=== PATIENT | female | born 1965 | race Caucasian/White ===

== ENCOUNTER → 2017-05-04 15:34 | Outpatient (CLI) | payer OTHER, SELFPAY ==
--- NOTE | 2017-05-04 | US_ITS ---
US thyroid HISTORY: Hypothyroid. Recent diagnosis of thyromegaly ORDERING PHYSICIAN: Cony Ruiz PATIENT AGE: 51 years COMPARISON: None FINDINGS: The right lobe measures 4 x 1.5 x 1.7 cm. There is some heterogeneous echogenicity. There is an 8 mm area of slight decreased echogenicity in the mid aspect of the right lobe. This however is only demonstrated in the sagittal plane. The left lobe measures 4 x 1.3 x 1.6 cm with heterogeneous echogenicity. No definite nodule. IMPRESSION: Heterogeneous echogenicity of the thyroid gland possible nodule in the right. Consider 6 month follow-up to confirm stability or resolution
== END ==
PROVIDERS: PCP Family Medicine; Visit Provider Nurse Practitioner Family
DX: E01.0 Iodine-deficiency related diffuse (endemic) goiter (principal)
CPT/HCPCS: 76536

== ENCOUNTER → 2018-05-21 13:25 | Outpatient (CLI) | payer OTHER, SELFPAY ==
--- NOTE | 2018-05-21 13:26 | CA_ITS ---
PROCEDURE: 2-D M-mode and color Doppler study INDICATIONS FOR THE TEST: Chest pain COPD Heart Murmur Tobacco Smoking Palpitations+ Fatigue Syncope Edema+ Hypertension+Diabetes Mellitus Rheumatic Fever SOB VANG Obesity Hyperlipidemia Family History HD Additional History PATIENT INFORMATION HEIGHT: 63 WEIGHT: 191 GENDER: Female B/P: 114/72 2-D/M-MODE INTERPRETATION: 2-D MEASUREMENTS OBSERVED VALUES IN CMS Right Ventricular Dimension (RVDd) 2.8 Interventricular Septum (Thickness)(IVsd) 0.9 Left Ventricular Internal Dimensions(LVIDd) 4.6 Left Ventricular Posterior Wall (Thickness)(LVPWd) 0.9 Aortic Root 3.0 Aortic Cusp Separation 2.0 Left Atrial Dimensions (LAD) 4.3 2D 1. Left atrium is mildly enlarged, left ventricle is normal size, there is no concentric left ventricular hypertrophy, visually estimated ejection fraction 55% with no regional wall motion abnormality. 2. The right atrium and right ventricle are normal size and contractility. 3. The aortic valve, mitral and tricuspid valve are grossly normal. 4. The pulmonic valve is poorly present. 5. No significant pericardial effusion noted. DOPPLER INTERROGATION: Doppler interrogation of the aortic, mitral and tricuspid valvular presence of mild mitral and tricuspid regurgitation, tricuspid regurgitation jet velocity is inadequate for calculation of the right ventricular systolic pressure, diastolic parameters are within normal range. Inferior vena cava is normal size with normal respiratory collapse. CONCLUSION: 1. Mildly enlarged left atrium, normal left ventricular size, visually estimated ejection fraction 55% with no regional wall motion abnormality, diastolic parameters are within normal range. 2. Mild mitral and tricuspid regurgitation 3. No significant pericardial effusion noted.
== END ==
PROVIDERS: PCP Family Medicine; Visit Provider Internal Medicine
DX: R00.2 Palpitations (principal); I51.9 Heart disease, unspecified; R60.9 Edema, unspecified; I10 Essential (primary) hypertension; F41.9 Anxiety disorder, unspecified
CPT/HCPCS: 93306

== ENCOUNTER 2018-06-02 19:35 | Observation (INO) ==
[2018-06-02 20:06] LABS: Basophils # 0.1 K/mm3 (0-0.2); Basophils % 0.7 % (0.1-2.0); Eosinophils # 0.4 K/mm3 (0.0-0.4); Eosinophils % 4.3 % (0.1-12.0); Hematocrit 41.1 % (37.0-47.0); Hemoglobin 14.1 g/dL (12.2-16.2); Lymphocytes # 1.7 K/mm3 (0.7-4.5); Lymphocytes % 18.2 % (10-50); Mean Corpuscular HGB Conc 34.2 g/dL (31.8-35.4); Mean Corpuscular Hemoglobin 30.8 pg (27.0-31.2); Mean Corpuscular Volume 90.2 fl (81-99); Mean Platelet Volume 6.6 fl (7.4-10.4); Monocytes # 0.7 K/mm3 (0.1-1.0); Monocytes % 7.2 % (1.7-9.3); Neutrophils # 6.4 K/mm3 (1.8-7.8); Neutrophils % 69.5 % (37.0-80.0); Platelet Count 293 K/mm3 (142-424); Red Blood Count 4.55 M/mm3 (4.20-5.40); Red Cell Distribution Width 13.6 % (11.5-17.5); White Blood Count 9.2 K/mm3 (4.8-10.8)
[2018-06-02 20:31] LABS: Anion Gap 12.5 mEq/L (5-15); Blood Urea Nitrogen 7 mg/dL (7-18); Carbon Dioxide 29 mmol/L (21.0-32.0); Chloride 102 mmol/L (98-107); Glucose 96 mg/dL (74-106); Potassium 3.5 mmoL/L (3.5-5.1); Sodium 140 mmol/L (136-145)
--- NOTE | 2018-06-02 23:16 | Emergency Department Note ---
ED Disposition Clinical Impression: Chest pain Qualifiers: Chest pain type: precordial pain Qualified Code(s): R07.2 - Precordial pain Disposition: Admitted as Observation Condition on Discharge: Good - Critical Care Critical Care Time: No Attestation: On 06/02/18, the high probability of a clinically significant, sudden or life threatening deterioration of the following system(s) required my full and direct attention, intervention and personal management. The time I documented below is in addition to time spent performing reported procedures but includes the following listed in this critical care notation. Medical Decision Making - Medical Records Medical records reviewed: Yes: I reviewed the patient's medical records. - [place] Inquiry Pt receiving controlled substance: No Vital Signs: 06/02/18 19:37 06/02/18 20:31 06/02/18 20:39 Temperature 99.1 F Temperature Source Oral Pulse Rate [Right] 62 57 L 60 Respiratory Rate 16 16 16 Blood Pressure [Right Arm] 164/80 H 131/69 131/69 Blood Pressure Mean [Right Arm] 108 89 89 Blood Pressure Source [Right Arm] Automatic Cuff Automatic Cuff Automatic Cuff Blood Pressure Position [Right Arm] Supine Sitting 02 Sat by Pulse Oximetry 97 97 98 Oxygen Delivery Method Room Air Room Air Room Air 06/02/18 23:30 Temperature Temperature Source Pulse Rate [Right] 91 H Respiratory Rate 16 Blood Pressure [Right Arm] 132/89 Blood Pressure Mean [Right Arm] 103 Blood Pressure Source [Right Arm] Automatic Cuff Blood Pressure Position [Right Arm] Supine 02 Sat by Pulse Oximetry 97 Oxygen Delivery Method Room Air - Lab Data Lab results reviewed: Yes: I reviewed the patient's lab results. Lab Results 06/02/18 19:47: WBC 9.2, RBC 4.55, Hgb 14.1, Hct 41.1, MCV 90.2, MCH 30.8, MCHC 34.2, RDW 13.6, Plt Count 293, MPV 6.6 L, Neut % (Auto) 69.5, Lymph % (Auto) 18.2, [place] % (Auto) 7.2, Eos % (Auto) 4.3, Baso % (Auto) 0.7, Neut # (Auto) 6.4, Lymph # (Auto) 1.7, [place] # (Auto) 0.7, Eos # (Auto) 0.4, Baso # (Auto) 0.1 06/02/18 19:47: Sodium 140, Potassium 3.5, Chloride 102, Carbon Dioxide 29, Anion Gap 12.5, BUN 7, Creatinine 0.83, Estimated Creat Clear 110, Estimated GFR 72, Est GFR ( Amer) 88, Glucose 96, Calcium 9.0, Troponin I < 0.02 Result diagrams: 06/02/18 19:47 06/02/18 19:47 Orders (Tests/Meds): ED MEDICATIONS Generic Name Dose Route Start Last Admin Trade Name Freq PRN Reason Stop Dose Admin Sodium Chloride 1,000 mls @ 999 mls/hr 06/02/18 19:45 06/02/18 19:51 Sod Chlor 0.9% 1000ml Bag IV 06/02/18 20:45 999 mls/hr .[id number] DEONNA Administration Discontinued Medications Generic Name Dose Route Start Last Admin Trade Name Freq PRN Reason Stop Dose Admin Aspirin 324 mg 06/02/18 19:45 06/02/18 19:51 Aspirin 81mg Chewable Tablet PO 06/02/18 19:46 324 mg ONCE ONE Administration - Radiology Data #1 Image(s): Chest Image Reviewed: Yes I reviewed the patient's radiology image Preliminary Findings: Normal/NAD - ECG Data Tracing #1 Normal Sinus Rhythm: Yes Ischemic changes: non-specific ST-T wave changes - Physician Consults Physician Consulted: radha Reason -: Admission Chest Pain HPI - General Chief Complaint: Chest Pain Stated Complaint: chest pain Time Seen by Provider: 06/02/18 23:01 Mode of Arrival: Ambulatory Source of Information: Patient, Spouse, Medical Record ( ) Limitations: No Limitations Description of Symptoms (Recalled from ER Triage Doc. by RN): Pt states she has been having chest tightness since sunday - History of Present Illness HPI narrative: pt with episode of chest tightness for 30 min at rest on sunday and for 1 hr arielle - complaint: chest pain indicative of cardiac Onset (ago): hour(s) Duration: now resolved Activity at onset: during rest Pain location: left chest Severity: moderate Quality: other (pressure) Risk Factors for CAD: Hypertension, Family Hx of CAD Treatments prior to or on arrival for Cardiac Chest Pain: none - CRISPIN Score for Non-Stemi Age of Patient: 50-59 years old Heart Rate: 50-69 bpm Systolic Blood Pressure: 160-199 mmHg Serum Creatinine: 0.80-1.19 mg/dl CHF [place] Class: I-No CHF Other Risk Factors: None Non-Stemi Risk Score: 61 - Related Data Prior Cardiac Testing/Procedures: Echocardiogram On Oral Contraceptives: No Home Medications Medication Instructions Recorded Confirmed escitalopram 20 mg tablet 20 mg PO DAILY tab 09/07/17 06/02/18 thyroid (pork) 30 mg tablet 30 mg PO DAILY 05/14/18 06/02/18 Amlodipine Besylate [Norvasc 5mg 5 mg PO DAILY 06/02/18 06/02/18 tablet] Bisoprolol Fumarate [Bisoprolol 10 mg PO DAILY 06/02/18 06/02/18 10mg Tablet] Trazodone HCl 100 mg PO HS 06/02/18 06/02/18 Allergies Allergy/AdvReac Type Severity Reaction Status Date / Time codeine [CODEINE] Allergy Severe WHIVES Verified 06/02/18 19:53 erythromycin base Allergy Severe WHIVES Verified 06/02/18 19:53 [ERYTHROMYCIN BASE] Penicillins [PENICILLINS] Allergy Severe I-HIVES Verified 06/02/18 19:53 Sulfa (Sulfonamide Allergy Severe WHIVES Verified 06/02/18 19:53 Antibiotics) [SULFA (SULFONAMIDE ANTIBIOTICS)] [facility] History - Hepatitis A Screen Drug use history?: No High risk sexual behaviors?: No History of sexually transmitted infection?: No Currently employed?: No Childcare worker?: No Do you have indoor plumbing?: Yes Do you have electricity?: Yes Attestation statement:: This patient has been screened for Hepatitis A risk factors. I have reviewed the patient's past medical history: Yes Medical History: Reports:: Depression, Hypertension Denies:: Cancer, Diabetes Mellitus Type 1, Diabetes Mellitus Type 2, MRSA Other Medical History: Reports: Hypothyroidism, Other Other Surgeries: Yes: Other (left foot, ablation, lithotripsy x 3) Amputation: No Fractures: No - Social History Smoking Status: Never smoker Alcohol Intake: never Alcohol Intake Frequency:: other Substance Use Type: denies use Occupational Status: employed Housing: house Household Members: spouse - Psychiatric History Expresses thoughts of harming self/others: None Suicide Plan Description: No Plan Pschychiatric History:: Reports:: Depression Family Hx:: No significant family history ROS Obtained: Yes All systems reviewed & no additional complaints - Constitutional Constitutional: Denies fever(s) - Eyes Eyes: Denies change in vision - ENT Ears, Nose, Mouth, and Throat: Denies sore throat - Cardiovascular Cardiovascular: Reports chest pain, Denies dyspnea - Respiratory Respiratory: No cough - Gastrointestinal Gastrointestingal: Denies: abdominal pain - Genitourinary Female Genitourinary: Denies hematuria - Musculoskeletal Musculoskeletal: Denies joint pain, Denies joint swelling - Integumentary/Breasts Skin/Breast: Denies rash - Neurologic Neurologic: Denies tingling/numbness/burning sensations, Denies seizure-like activity Physical Exam - General General appearance: alert, in no apparent distress - Head Head exam: normocephalic - Eye Eye exam: Present: PERRL, EOMI - ENT ENT exam: Present: mucous membranes moist - Neck Neck exam: Present: trachea midline - Respiratory Respiratory exam: Present: normal lung sounds bilaterally. Absent: respiratory distress - Cardiovascular Cardiovascular exam: Present: regular rate, systolic murmur - Abdominal Exam Abdominal exam: Present: soft - Extremities Exam Extremities exam: Absent: calf tenderness - Neurological Exam Neurological exam: Present: alert, oriented X3, CN II-XII intact - Psychiatric Psychiatric exam: Present: normal affect - Skin Skin exam: Absent: rash
[2018-06-03 05:56] LABS: Basophils # 0.1 K/mm3 (0-0.2); Basophils % 0.6 % (0.1-2.0); Eosinophils # 0.5 K/mm3 (0.0-0.4); Hematocrit 38.6 % (37.0-47.0); Hemoglobin 12.9 g/dL (12.2-16.2); Lymphocytes # 1.3 K/mm3 (0.7-4.5); Lymphocytes % 12.5 % (10-50); Mean Corpuscular HGB Conc 33.4 g/dL (31.8-35.4); Mean Corpuscular Hemoglobin 30.2 pg (27.0-31.2); Mean Corpuscular Volume 90.3 fl (81-99); Mean Platelet Volume 6.6 fl (7.4-10.4); Monocytes # 0.6 K/mm3 (0.1-1.0); Monocytes % 5.4 % (1.7-9.3); Neutrophils % 76.5 % (37.0-80.0); Platelet Count 259 K/mm3 (142-424); Red Blood Count 4.27 M/mm3 (4.20-5.40); Red Cell Distribution Width 13.6 % (11.5-17.5); White Blood Count 10.4 K/mm3 (4.8-10.8)
[2018-06-03 06:12] LABS: Anion Gap 11.6 mEq/L (5-15); Blood Urea Nitrogen 6 mg/dL (7-18); Calcium 8.5 mg/dL (8.5-10.1); Carbon Dioxide 28 mmol/L (21.0-32.0); Chloride 105 mmol/L (98-107); Chol/HDL Ratio 3.3 (1-3.5); Cholesterol 156 mg/dL (140-200); Glucose 106 mg/dL (74-106); HDL Cholesterol 48 mg/dL (29-89); LDL Cholesterol 97 mg/dL (0-130); Potassium 3.6 mmoL/L (3.5-5.1); Sodium 141 mmol/L (136-145); Triglycerides 56 mg/dL (30-200); VLDL Cholesterol 11 mg/dL (0-40)
--- NOTE | 2018-06-03 07:24 | H&P/Discharge Summary ---
General - General Admission date:: 06/03/18 Discharge date: 06/03/18 *Admission Date: 06/02/18 *Chief complaint: Shortness of breath *History of present illness: 52-year-old female with hypertension and anxiety presented to the emergency department with complaints of shortness of breath, dizziness and lightheadedness. Patient reports that within the last year she has developed occasional symptoms of sensation of pressure around the bottom of the neck and throat with associated inability to get a deep breath. Deep breathing will usually trigger coughing. Occasionally the patient feels like she is wheezing. Symptoms usually occur around the sternal notch. On Sunday, which is the day she was admitted, in addition to the symptoms she had associated tingling of the tongue along with lightheadedness and dizziness that lasted approximately 30 minutes. She had 2 episodes while at rest. This caused her to come to the emergency department. Patient denies having any chest pain. Review of systems is positive for malaise that has lasted the last 2 years. Negative for heartburn or acid reflux [facility] History I have reviewed the patient's past medical history: Yes Medical History: Reports:: Arrhythmia, Depression, Hypertension Denies:: Cancer, Coronary Artery Disease, Diabetes Mellitus Type 1, Diabetes Mellitus Type 2, MRSA *Have you ever received a pneumonia vaccine?: No *Have you received a flu vaccine this season?: Yes Other Medical History: Reports: Hypothyroidism, Thyroid Disease, Other Laterality Cases: Left: Other Other Surgeries: Yes: Colonoscopy, Other (left foot, ablation, lithotripsy x 3) Amputation: No Fractures: No - *Social History Educational Level: Attended College Smoking Status: Never smoker Alcohol Intake: never Alcohol Intake Frequency:: other Substance Use Type: denies use *Occupational Status:: employed Housing: house Household Members: spouse *Travel in the last 8 weeks: None - Psychiatric History Expresses thoughts of harming self/others: None Suicide Plan Description: No Plan Pschychiatric History:: Reports:: Depression Family Hx:: No significant family history Review of Systems - Review of Systems Review of systems:: pertinent systems reviewed and negative unless documented below See HPI - *Neurologic Denies tingling/numbness/burning sensations, Denies seizure-like activity Exam Vital signs and Labs for Last 24 Hours: Temp Pulse Resp BP Pulse Ox 98.0 F 58 L 18 134/71 92 L 06/03/18 04:00 06/03/18 04:00 06/03/18 04:00 06/03/18 04:00 06/03/18 04:00 Laboratory Results - last 24 hr 06/02/18 19:47: WBC 9.2, RBC 4.55, Hgb 14.1, Hct 41.1, MCV 90.2, MCH 30.8, MCHC 34.2, RDW 13.6, Plt Count 293, MPV 6.6 L, Neut % (Auto) 69.5, Lymph % (Auto) 18.2, [place] % (Auto) 7.2, Eos % (Auto) 4.3, Baso % (Auto) 0.7, Neut # (Auto) 6.4, Lymph # (Auto) 1.7, [place] # (Auto) 0.7, Eos # (Auto) 0.4, Baso # (Auto) 0.1 06/02/18 19:47: Sodium 140, Potassium 3.5, Chloride 102, Carbon Dioxide 29, Anion Gap 12.5, BUN 7, Creatinine 0.83, Estimated Creat Clear 110, Estimated GFR 72, Est GFR ( Amer) 88, Glucose 96, Calcium 9.0, Troponin I < 0.02 06/03/18 02:10: Troponin I < 0.02 06/03/18 05:27: Sodium 141, Potassium 3.6, Chloride 105, Carbon Dioxide 28, Anion Gap 11.6, BUN 6 L, Creatinine 0.87, Estimated Creat Clear 102, Estimated GFR 69, Est GFR ( Amer) 83, Glucose 106, Calcium 8.5, Magnesium 1.9, Troponin I < 0.02, Triglycerides 56, Cholesterol 156, LDL Cholesterol 97, VLDL Cholesterol 11, HDL Cholesterol 48, Cholesterol/HDL Ratio 3.3 06/03/18 05:27: WBC 10.4, RBC 4.27, Hgb 12.9, Hct 38.6, MCV 90.3, MCH 30.2, MCHC 33.4, RDW 13.6, Plt Count 259, MPV 6.6 L, Neut % (Auto) 76.5, Lymph % (Auto) 12.5, [place] % (Auto) 5.4, Eos % (Auto) 5.0, Baso % (Auto) 0.6, Neut # (Auto) 8.0 H, Lymph # (Auto) 1.3, [place] # (Auto) 0.6, Eos # (Auto) 0.5 H, Baso # (Auto) 0.1 I & O for Last 24 hours: Intake & Output 05/31/18 06/01/18 06/02/18 06/03/18 11:59 11:59 11:59 11:59 Intake Total 213 / 213 Balance 213 / 213 Weight 187 lb Narrative: Patient is awake and alert and in no distress. HEENT exam is normal. Neck is without lymphadenopathy or thyromegaly. Heart has a regular rate and rhythm. L ungs are clear to auscultation and without wheezing. Abdomen is soft and nontender. Extremities have full range of motion. Vascular exam reveals intact dorsalis pedis pulses in both feet and no edema. Neurologically there are no deficits. Hospital Course Hospital Course: Patient EKG in the emergency department did not show any signs of ischemia, infarct or injury. Cardiac enzymes were negative. Patient was admitted for serial troponins. All troponins were negative. The following morning the patient was asymptomatic. She was discharged home with an inhaler and will follow-up in the office on June 07 at 8 AM with me. Results Labs on day of discharge: Labs from last 24 hours 06/03/18 06/03/18 06/03/18 05:27 05:27 02:10 WBC 10.4 RBC 4.27 Hgb 12.9 Hct 38.6 MCV 90.3 MCH 30.2 MCHC 33.4 RDW 13.6 Plt Count 259 MPV 6.6 L Neut % (Auto) 76.5 Lymph % (Auto) 12.5 [place] % (Auto) 5.4 Eos % (Auto) 5.0 Baso % (Auto) 0.6 Neut # (Auto) 8.0 H Lymph # (Auto) 1.3 [place] # (Auto) 0.6 Eos # (Auto) 0.5 H Baso # (Auto) 0.1 Sodium 141 Potassium 3.6 Chloride 105 Carbon Dioxide 28 Anion Gap 11.6 BUN 6 L Creatinine 0.87 Estimated Creat Clear 102 Estimated GFR 69 Est GFR ( Amer) 83 Glucose 106 Calcium 8.5 Magnesium 1.9 Troponin I < 0.02 < 0.02 Triglycerides 56 Cholesterol 156 LDL Cholesterol 97 VLDL Cholesterol 11 HDL Cholesterol 48 Cholesterol/HDL Ratio 3.3 02/24/19 02/24/19 19:47 19:47 WBC 9.2 RBC 4.55 Hgb 14.1 Hct 41.1 MCV 90.2 MCH 30.8 MCHC 34.2 RDW 13.6 Plt Count 293 MPV 6.6 L Neut % (Auto) 69.5 Lymph % (Auto) 18.2 [place] % (Auto) 7.2 Eos % (Auto) 4.3 Baso % (Auto) 0.7 Neut # (Auto) 6.4 Lymph # (Auto) 1.7 [place] # (Auto) 0.7 Eos # (Auto) 0.4 Baso # (Auto) 0.1 Sodium 140 Potassium 3.5 Chloride 102 Carbon Dioxide 29 Anion Gap 12.5 BUN 7 Creatinine 0.83 Estimated Creat Clear 110 Estimated GFR 72 Est GFR ( Amer) 88 Glucose 96 Calcium 9.0 Magnesium Troponin I < 0.02 Triglycerides Cholesterol LDL Cholesterol VLDL Cholesterol HDL Cholesterol Cholesterol/HDL Ratio DS: Diagnosis - Discharge Diagnosis (1) Shortness of breath Status: Acute (2) Anxiety disorder Status: Chronic Discharge Medications - Medications for Discharge Home Medication List at Discharge: No Action escitalopram 20 mg tablet 20 mg PO DAILY tab thyroid (pork) 30 mg tablet 30 mg PO DAILY Amlodipine Besylate [Norvasc 5mg tablet] 5 mg PO DAILY Bisoprolol Fumarate [Bisoprolol 10mg Tablet] 10 mg PO DAILY Trazodone HCl 100 mg PO HS Disposition Disposition: Home, Self-Care
--- NOTE | 2018-06-03 07:32 | Pharmacy Consult Notes ---
[facility] Pharmacy VTE Monitoring - Patient Demographics Admission date: 06/02/18 Report Date: 06/03/18 Time: 07:32 Allergies/Adverse Reactions: Patient Allergies codeine [CODEINE] Allergy (Severe, Verified 06/02/18 19:53) WHIVES erythromycin base [ERYTHROMYCIN BASE] Allergy (Severe, Verified 06/02/18 19:53) WHIVES Penicillins [PENICILLINS] Allergy (Severe, Verified 06/02/18 19:53) I-HIVES Sulfa (Sulfonamide Antibiotics) [SULFA (SULFONAMIDE ANTIBIOTICS)] Allergy (Severe, Verified 06/02/18 19:53) WHIVES Height: 1.6 m Weight: 84.822 kg Patient Problems: Current Active Problems Chest pain (Acute) Shortness of breath (Acute) - VTE Risk Labs: VTE Related Lab Results Hgb 12.9 g/dL (12.2-16.2) 06/03/18 05:27 Hct 38.6 % (37.0-47.0) 06/03/18 05:27 Plt Count 259 K/mm3 (142-424) 06/03/18 05:27 BUN 6 mg/dL (7-18) L 06/03/18 05:27 Creatinine 0.87 mg/dL (0.55-1.02) 06/03/18 05:27 Estimated Creat Clear 102 mL/min (50-200) 06/03/18 05:27 VTE Score: 4 VTE Risk Level: Low Risk - Prophylaxis VTE Prophylaxis Ordered?: Yes Types of VTE Prophylaxis: TEDS Knee High Location of Applied Device: Bilateral Lower Extremeties - VTE Diagnosis Confirmed Treatment or plan recommended: Continue Current Treatment
== END 2018-06-03 08:38 | disposition home or self-care (01) ==
LOC: ER 19:35 → 2ND 19:35
PROVIDERS: ADMIT Internal Medicine Adolescent Medicine; ATTEND Family Medicine
DX: F32.9 Major depressive disorder, single episode, unspecified; R06.02 Shortness of breath; R07.2 Precordial pain; Z88.0 Allergy status to penicillin; R20.2 Paresthesia of skin; R42 Dizziness and giddiness; Z79.899 Other long term (current) drug therapy; I49.9 Cardiac arrhythmia, unspecified; Z88.2 Allergy status to sulfonamides; I10 Essential (primary) hypertension; Z88.6 Allergy status to analgesic agent
CPT/HCPCS: 36415; 71020; 71046; 80048; 80061; 83735; 84484; 85025; 93005; 96365; 99284; G0378

== ENCOUNTER → 2018-06-14 10:56 | Outpatient (CLI) | payer OTHER, SELFPAY | PROVIDERS: PCP Family Medicine; Visit Provider Family Medicine | DX: R06.2 Wheezing (principal) | CPT/HCPCS: 94060 ==

== ENCOUNTER 2018-11-05 19:25 | Observation (INO) ==
[2018-11-05 20:16] LABS: Basophils # 0.1 K/mm3 (0-0.2); Basophils % 0.5 % (0.1-2.0); Eosinophils # 0.1 K/mm3 (0.0-0.4); Eosinophils % 0.3 % (0.1-12.0); Hematocrit 44.7 % (37.0-47.0); Hemoglobin 14.7 g/dL (12.2-16.2); Lymphocytes # 1.9 K/mm3 (0.7-4.5); Lymphocytes % 11.6 % (10-50); Mean Corpuscular Volume 92.1 fl (81-99); Mean Platelet Volume 6.5 fl (7.4-10.4); Monocytes # 0.8 K/mm3 (0.1-1.0); Monocytes % 4.8 % (1.7-9.3); Neutrophils # 13.6 K/mm3 (1.8-7.8); Neutrophils % 82.8 % (37.0-80.0); Platelet Count 334 K/mm3 (142-424); Red Blood Count 4.85 M/mm3 (4.20-5.40); Red Cell Distribution Width 13.2 % (11.5-17.5); White Blood Count 16.4 K/mm3 (4.8-10.8)
[2018-11-05 20:26] LABS: Albumin Level 3.3 gm/dL (3.4-5.0); Albumin/Globulin Ratio 0.7 (1.1-1.8); Anion Gap 11.8 mEq/L (5-15); Bilirubin,Total 1.1 mg/dL (0.2-1.0); Calcium 9.1 mg/dL (8.5-10.1); Globulin 4.5 gm/dl (1.3-3.2); Total Protein,Serum 7.8 gm/dL (6.4-8.2)
--- NOTE | 2018-11-05 20:27 | Emergency Department Note ---
ED Disposition Clinical Impression: Cholecystitis Disposition: Admitted As Inpatient Condition on Discharge: Good Instructions: DI for Acute Abdomen Referrals: Javier Wasserman MD [Primary Care Provider] - - Critical Care Critical Care Time: No Attestation: On 11/05/18, the high probability of a clinically significant, sudden or life threatening deterioration of the following system(s) required my full and direct attention, intervention and personal management. The time I documented below is in addition to time spent performing reported procedures but includes the following listed in this critical care notation. Medical Decision Making - Medical Records Medical records reviewed: Yes: I reviewed the patient's medical records. - [place]an Inquiry Pt receiving controlled substance: No Vital Signs: 11/05/18 19:35 11/05/18 21:26 Temperature 98.7 F Temperature Source Oral Pulse Rate [Right] 70 68 Respiratory Rate 16 16 Blood Pressure [Right Arm] 150/72 H 131/72 Blood Pressure Mean [Right Arm] 98 91 Blood Pressure Source [Right Arm] Automatic Cuff Blood Pressure Position [Right Arm] Supine 02 Sat by Pulse Oximetry 99 96 Oxygen Delivery Method Room Air - Lab Data Lab results reviewed: Yes: I reviewed the patient's lab results. Lab Results 11/05/18 19:55: WBC 16.4 H, RBC 4.85, Hgb 14.7, Hct 44.7, MCV 92.1, MCH 30.4, MCHC 33.0, RDW 13.2, Plt Count 334, MPV 6.5 L, Neut % (Auto) 82.8 H, Lymph % (Auto) 11.6, Kerr % (Auto) 4.8, Eos % (Auto) 0.3, Baso % (Auto) 0.5, Neut # (A uto) 13.6 H, Lymph # (Auto) 1.9, Kerr # (Auto) 0.8, Eos # (Auto) 0.1, Baso # (Auto) 0.1, Total Counted 100, Neutrophils % (Manual) 83 H, Lymphocytes % (Manual) 12, Monocytes % (Manual) 5, Platelet Estimate Normal, RBC Morphology Normal, ESR 26 11/05/18 19:55: Sodium 136, Potassium 3.8, Chloride 100, Carbon Dioxide 28, Anion Gap 11.8, BUN 13, Creatinine 1.02, Estimated Creat Clear 89, Estimated GFR 57 L, Est GFR ( Amer) 69, Glucose 117 H, Calcium 9.1, Total Bilirubin 1.1 H, AST 10 L, ALT 18, Alkaline Phosphatase 117 H, C-Reactive Protein 15.0 H, Total Protein 7.8, Albumin 3.3 L, Globulin 4.5 H, Albumin/Globulin Ratio 0.7 L, Amylase 19 L, Lipase 67 L 11/05/18 19:55: Lactate 1.4 Result diagrams: 11/05/18 19:55 11/05/18 19:55 Orders (Tests/Meds): ED MEDICATIONS Generic Name Dose Route Start Last Admin Trade Name Freq PRN Reason Stop Dose Admin Sodium Chloride 1,000 mls @ 999 mls/hr 11/05/18 20:15 11/05/18 20:10 Sod Chlor 0.9% 1000ml Bag IV 11/05/18 21:15 999 mls/hr .[id number] DEONNA Administration Discontinued Medications Generic Name Dose Route Start Last Admin Trade Name Freq PRN Reason Stop Dose Admin Ioversol 75 ml 11/05/18 21:00 11/05/18 21:02 Rad-Optiray 350 100ml Vial IV 11/05/18 21:01 75 ml ONCE ONE Administration Protocol Ketorolac Tromethamine 30 mg 11/05/18 20:02 11/05/18 20:10 Toradol 30mg/Ml Vial IV 11/05/18 20:03 30 mg ONCE ONE Administration Ondansetron HCl 4 mg 11/05/18 20:02 11/05/18 20:10 Zofran 4mg/2ml Vial IV 11/05/18 20:03 4 mg ONCE ONE Administration Sodium Chloride 10 ml 11/05/18 21:00 11/05/18 21:02 Rad-Saline Flush 10ml Syringe IV 11/05/18 21:01 10 ml ONCE ONE Administration ORDERS Category Date Time Status CT abdomen pelvis w con Stat Cat Scan 11/05/18 20:02 Taken Urinalysis and Microscopic Stat Lab 11/05/18 20:02 Ordered Blood Culture Stat Micro 11/05/18 19:55 Received - CT Data CT Scan: Abdomen, Pelvis Time Received: 22:[address] Reviewed: Yes: I have viewed the radiologist's interpretation Preliminary Findings: Abnormal (cholecystitis) - Physician Consults Physician Consulted: radha Reason -: Admission Nausea/Vomiting/Diarrhea HPI - General Chief complaint: Abdominal Pain Stated complaint: Abd Pain Time Seen by Provider: 11/05/18 20:00 Mode of Arrival: Ambulatory Source of Information: Patient, Spouse, Medical Record Limitations: No Limitations Description of Symptoms (Recalled from ER Triage Doc. by RN): Pt states she has stabing pain RUQ x 4 days worse with palpations - History of Present Illness HPI Narrative: progressive rt upper abd pain with nausea MD complaint: nausea, vomiting, abdominal pain Onset (ago): day(s) Associated Abdominal Pain: Yes Location of pain: RUQ Severity: moderate Consistency: colicky Associated symptoms: denies other symptoms - Related Data Home Medications Medication Instructions Recorded Confirmed thyroid (pork) 30 mg tablet 30 mg PO DAILY 05/14/18 11/05/18 omeprazole 20 mg capsule,delayed 20 mg PO DAILY 06/11/18 11/05/18 release Escitalopram Oxalate [Lexapro] 20 mg PO HS 11/05/18 11/05/18 Lisinopril [Lisinopril 10mg Tab] 10 mg PO DAILY 11/05/18 11/05/18 Suvorexant [Belsomra] 20 mg PO DAILY 11/05/18 11/05/18 Previous Rx's Medication Instructions Recorded Albuterol Sulfate [Albuterol HFA 2 puffs IH Q6HP PRN #1 inh 06/03/18 Inhaler] bisoprolol fumarate 10 mg tablet 10 mg PO DAILY #30 tab 06/11/18 Allergies Allergy/AdvReac Type Severity Reaction Status Date / Time codeine [CODEINE] Allergy Severe WHIVES Verified 06/11/18 08:54 erythromycin base Allergy Severe WHIVES Verified 06/11/18 08:54 [ERYTHROMYCIN BASE] Penicillins [PENICILLINS] Allergy Severe I-HIVES Verified 06/11/18 08:54 Sulfa (Sulfonamide Allergy Severe WHIVES Verified 06/11/18 08:54 Antibiotics) [SULFA (SULFONAMIDE ANTIBIOTICS)] [facility] History - Hepatitis A Screen Drug use history?: No High risk sexual behaviors?: No History of sexually transmitted infection?: No Currently employed?: No Childcare worker?: No Do you have indoor plumbing?: Yes Do you have electricity?: Yes Attestation statement:: This patient has been screened for Hepatitis A risk factors. I have reviewed the patient's past medical history: Yes Medical History: Reports:: Anxiety, Arrhythmia, Depression, Hypertension, Kidney Stones Denies:: Cancer, Coronary Artery Disease, Diabetes Mellitus Type 1, Diabetes Mellitus Type 2, MRSA Other Medical History: Reports: Hypothyroidism, Thyroid Disease, Other Laterality Cases: Left: Other Other Surgeries: Yes: Colonoscopy, Other (left foot, ablation, lithotripsy x 3) Amputation: No Fractures: No - Social History Smoking Status: Never smoker Alcohol Intake: never Alcohol Intake Frequency:: other Substance Use Type: denies use Occupational Status: employed Housing: house Household Members: spouse - Psychiatric History Pschychiatric History:: Reports:: Anxiety, Depression Family Hx:: No significant family history ROS Obtained: Yes All systems reviewed & no additional complaints - Constitutional Constitutional: Denies fever(s) - Eyes Eyes: Denies change in vision - ENT Ears, Nose, Mouth, and Throat: Denies sore throat - Cardiovascular Cardiovascular: Denies chest pain - Respiratory Respiratory: No cough - Gastrointestinal Gastrointestingal: Reports: as per HPI, abdominal pain, nausea, vomiting - Genitourinary Female Genitourinary: Denies hematuria - Musculoskeletal Musculoskeletal: Denies joint pain - Integumentary/Breasts Skin/Breast: Denies rash - Neurologic Neurologic: Denies seizure-like activity Physical Exam - General General appearance: alert, in no apparent distress - Head Head exam: normocephalic - Eye Eye exam: Present: PERRL, EOMI. Absent: scleral icterus - ENT ENT exam: Present: mucous membranes dry - Neck Neck exam: Present: trachea midline - Respiratory Respiratory exam: Absent: respiratory distress - Cardiovascular Cardiovascular exam: Present: regular rate, systolic murmur - Abdominal Exam Abdominal exam: Present: soft, tenderness, Reece's sign. Absent: guarding, rebound, rigidity Abdominal tenderness: Present: RUQ, moderate - Extremities Exam Extremities exam: Present: full ROM - Neurological Exam Neurological exam: Present: alert, oriented X3, CN II-XII intact - Psychiatric Psychiatric exam: Present: normal affect - Skin Skin exam: Absent: rash
[2018-11-05 20:51] LABS: Erythrocyte Sedimentation Rate 26 mm/hr (0-30)
[2018-11-05 21:07] LABS: Lymphocytes % 12 % (10-50); Monocytes % 5 % (2-9); Neutrophils % 83 % (42-76); RBC Morphology Normal; Total Cells Counted 100
[2018-11-06 06:45] LABS: Albumin Level 2.6 gm/dL (3.4-5.0); Albumin/Globulin Ratio 0.7 (1.1-1.8); Anion Gap 7.5 mEq/L (5-15); Bilirubin,Total 1.2 mg/dL (0.2-1.0); Calcium 8.5 mg/dL (8.5-10.1); Globulin 3.8 gm/dl (1.3-3.2); Total Protein,Serum 6.4 gm/dL (6.4-8.2)
--- NOTE | 2018-11-06 07:26 | History & Physical Report ---
*Admission Date: 11/05/18 *Chief complaint: Abdominal pain *History of present illness: Patient presented to the emergency department yesterday evening with 4-day history of epigastric and right upper quadrant abdominal pain that was constant in nature and made worse by eating any food. She had associated vomiting and nausea but no diarrhea. Patient denies fevers or chills. She underwent work-up in the emergency department. Exam revealed abdominal tenderness in the right upper quadrant and epigastrium, patient had an elevated white blood cell count, CT scan showed a 3 cm gallstone with pericholecystic fluid and fat stranding consistent with acute cholecystitis. CT scan also revealed nonobstructive renal stones. Patient was diagnosed with acute cholecystitis and admitted for surgical evaluation. Gallbladder ultrasound is scheduled for this morning and has yet to be performed. At present patient states her pain is tolerable as she is recently received some intravenous narcotic. Nausea is controlled at this time as well [facility] History I have reviewed the patient's past medical history: Yes Medical History: Reports:: Anxiety, Arrhythmia, Depression, Gastroesophageal Reflux Disease(GERD), Hypertension, Kidney Stones Denies:: Cancer, Coronary Artery Disease, Diabetes Mellitus Type 1, Diabetes Mellitus Type 2, MRSA *Have you ever received a pneumonia vaccine?: No *Have you received a flu vaccine this season?: Yes Other Medical History: Reports: Hypothyroidism, Thyroid Disease, Other Laterality Cases: Left: Other Other Surgeries: Yes: Colonoscopy, Other (left foot, ablation, lithotripsy x 3) Amputation: No Fractures: No - *Social History Educational Level: Attended College Smoking Status: Never smoker Alcohol Intake: current Alcohol Intake Frequency:: holidays/special occasions only Substance Use Type: denies use *Occupational Status:: employed Housing: house Household Members: spouse *Travel in the last 8 weeks: None - Psychiatric History Expresses thoughts of harming self/others: None Suicide Plan Description: No Plan Pschychiatric History:: Reports:: Anxiety, Depression Family Hx:: Cancer, Hypertension, Thyroid Disorder Review of Systems - Review of Systems Review of systems:: pertinent systems reviewed and negative unless documented below - Constitutional Denies body ache(s), Denies chills - *Cardiovascular Denies chest pain - *Gastrointestinal Reports abdominal pain, Reports nausea, Reports vomiting - *Neurologic Denies seizure-like activity Meds Home Medications Medication Instructions Recorded Confirmed Type thyroid (pork) 30 mg tablet 30 mg PO DAILY 05/14/18 11/05/18 History Albuterol Sulfate [Albuterol HFA 2 puffs IH Q6HP PRN #1 inh 06/03/18 11/05/18 Rx Inhaler] bisoprolol fumarate 10 mg tablet 10 mg PO DAILY #30 tab 06/11/18 11/05/18 Rx omeprazole 20 mg capsule,delayed 20 mg PO DAILY 06/11/18 11/05/18 History release Escitalopram Oxalate [Lexapro] 20 mg PO HS 11/05/18 11/05/18 History Lisinopril [Lisinopril 10mg Tab] 10 mg PO DAILY 11/05/18 11/05/18 History Suvorexant [Belsomra] 20 mg PO DAILY 11/05/18 11/05/18 History Allergies Allergy/AdvReac Type Severity Reaction Status Date / Time codeine [CODEINE] Allergy Severe WHIVES Verified 06/11/18 08:54 erythromycin base Allergy Severe WHIVES Verified 06/11/18 08:54 [ERYTHROMYCIN BASE] Penicillins [PENICILLINS] Allergy Severe I-HIVES Verified 06/11/18 08:54 Sulfa (Sulfonamide Allergy Severe WHIVES Verified 06/11/18 08:54 Antibiotics) [SULFA (SULFONAMIDE ANTIBIOTICS)] Exam Vital signs and Labs for Last 24 Hours: Temp Pulse Resp BP Pulse Ox 98.3 F 73 16 126/73 97 11/06/18 04:00 11/06/18 04:00 11/06/18 04:00 11/06/18 04:00 11/06/18 04:00 Laboratory Results - last 24 hr 11/05/18 19:55: WBC 16.4 H, RBC 4.85, Hgb 14.7, Hct 44.7, MCV 92.1, MCH 30.4, MCHC 33.0, RDW 13.2, Plt Count 334, MPV 6.5 L, Neut % (Auto) 82.8 H, Lymph % (Auto) 11.6, Kay % (Auto) 4.8, Eos % (Auto) 0.3, Baso % (Auto) 0.5, Neut # (Auto) 13.6 H, Lymph # (Auto) 1.9, Kay # (Auto) 0.8, Eos # (Auto) 0.1, Baso # (Auto) 0.1, Total Counted 100, Neutrophils % (Manual) 83 H, Lymphocytes % (Manual) 12, Monocytes % (Manual) 5, Platelet Estimate Normal, RBC Morphology Normal, ESR 26 11/05/18 19:55: Sodium 136, Potassium 3.8, Chloride 100, Carbon Dioxide 28, Anion Gap 11.8, BUN 13, Creatinine 1.02, Estimated Creat Clear 89, Estimated GFR 57 L, Est GFR ( Amer) 69, Glucose 117 H, Calcium 9.1, Total Bilirubin 1.1 H, AST 10 L, ALT 18, Alkaline Phosphatase 117 H, C-Reactive Protein 15.0 H, Total Protein 7.8, Albumin 3.3 L, Globulin 4.5 H, Albumin/Globulin Ratio 0.7 L, Amylase 19 L, Lipase 67 L 11/05/18 19:55: Lactate 1.4 11/06/18 05:56: Sodium 139, Potassium 4.5, Chloride 106, Carbon Dioxide 30, Anion Gap 7.5, BUN 13, Creatinine 1.03 H, Estimated Creat Clear 89, Estimated GFR 56 L, Est GFR ( Amer) 68, Glucose 118 H, Calcium 8.5, Total Bilirubin 1.2 H, AST 11 L, ALT 18, Alkaline Phosphatase 105, Total Protein 6.4, Albumin 2.6 L D, Globulin 3.8 H, Albumin/Globulin Ratio 0.7 L I & O for Last 24 hours: Intake & Output 11/03/18 11/04/18 11/05/18 11/06/18 11:59 11:59 11:59 11:59 Intake Total 1638 / 1638 Output Total 300 / 300 Balance 1338 / 1338 Weight 194 lb 6 oz - Constitutional no acute distress - *Routine HEENT Exam Head: Present: normocephalic Eye: Present: EOMI ENT: Present: mucous membranes moist - *Routine Respiratory Exam Present: CTA bilaterally - *Routine Cardiovascular Exam Present: RRR, Normal S1, Normal S2 - *Routine Abdominal Exam Present: soft, normoactive bowel sounds, tenderness (Epigastrium and right upper quadrant) - *Routine Extremities Exam Present: full ROM. Absent: edema Assessment and Plan (1) Cholecystitis Current visit: Yes Status: Acute Category: Medical Code(s): K81.9 - Cholecystitis, unspecified - Assessment and plan all Dx Assessment and Plan for all problems:: 1. Gallbladder ultrasound today and surgical consultation
--- NOTE | 2018-11-06 08:04 | Pharmacy Consult Notes ---
[facility] Pharmacy VTE Monitoring - Patient Demographics Admission date: 11/06/18 Report Date: 11/06/18 Time: 08:03 Allergies/Adverse Reactions: Patient Allergies codeine [CODEINE] Allergy (Severe, Verified 06/11/18 08:54) WHIVES erythromycin base [ERYTHROMYCIN BASE] Allergy (Severe, Verified 06/11/18 08:54) WHIVES Penicillins [PENICILLINS] Allergy (Severe, Verified 06/11/18 08:54) I-HIVES Sulfa (Sulfonamide Antibiotics) [SULFA (SULFONAMIDE ANTIBIOTICS)] Allergy (Severe, Verified 06/11/18 08:54) WHIVES Height: 1.6 m Weight: 88.167 kg Patient Problems: Current Active Problems (Updated 11/06/18 @ 07:27 by Javier Wasserman MD) Cholecystitis (Acute) - VTE Risk Labs: VTE Related Lab Results Hgb 14.7 g/dL (12.2-16.2) 11/05/18 19:55 Hct 44.7 % (37.0-47.0) 11/05/18 19:55 Plt Count 334 K/mm3 (142-424) 11/05/18 19:55 BUN 13 mg/dL (7-18) 11/06/18 05:56 Creatinine 1.03 mg/dL (0.55-1.02) H 11/06/18 05:56 Estimated Creat Clear 89 mL/min (50-200) 11/06/18 05:56 Was VTE Risk Assessment Performed: Yes VTE Score: 4 VTE Risk Level: Low Risk Clinical Trial Participant: No - Prophylaxis VTE Prophylaxis Ordered?: Yes Types of VTE Prophylaxis: TEDS Knee High
--- NOTE | 2018-11-06 11:40 | Consult Report ---
*Admission Date: 11/06/18 *Reason for consult:: Cholecystitis *History of present illness: Patient is a very pleasant 53-year-old female. She had presented to the emergency department earlier this morning after she had been experiencing a 4- day history of abdominal pain. She states that this began several days ago as more of a substernal discomfort and heartburn type symptoms. However it became progressively severe and radiated and localized to the right upper quadrant. Due to the severity of her symptoms she presented to the emergency department earlier this morning. She was found to have a mild leukocytosis. She underwent CT scan which revealed large gallstone with radiographic evidence of acute cholecystitis. She was admitted for inpatient management and surgical consultation was obtained. She has undergone gallbladder ultrasound and this reveals findings consistent with acute cholecystitis. She has had some low- grade fever since admission. Review of Systems - Review of Systems Review of systems:: pertinent systems reviewed and negative unless documented below - *Neurologic Denies seizure-like activity [facility] History Medical History: Reports:: Anxiety, Arrhythmia, Depression, Gastroesophageal Reflux Disease(GERD), Hypertension, Kidney Stones Denies:: Cancer, Coronary Artery Disease, Diabetes Mellitus Type 1, Diabetes Mellitus Type 2, MRSA *Have you ever received a pneumonia vaccine?: No *Have you received a flu vaccine this season?: Yes Other Medical History: Reports: Hypothyroidism, Thyroid Disease, Other Laterality Cases: Left: Other Other Surgeries: Yes: Colonoscopy, Other (left foot, ablation, lithotripsy x 3) Amputation: No Fractures: No - *Social History Educational Level: Attended College Smoking Status: Never smoker Alcohol Intake: current Alcohol Intake Frequency:: holidays/special occasions only Substance Use Type: denies use *Occupational Status:: employed Housing: house Household Members: spouse *Travel in the last 8 weeks: None - Psychiatric History Expresses thoughts of harming self/others: None Suicide Plan Description: No Plan Pschychiatric History:: Reports:: Anxiety, Depression Family Hx:: Cancer, Hypertension, Thyroid Disorder Meds Home Medications Medication Instructions Recorded Confirmed Type thyroid (pork) 30 mg tablet 30 mg PO DAILY 05/14/18 11/05/18 History Albuterol Sulfate [Albuterol HFA 2 puffs IH Q6HP PRN #1 inh 06/03/18 11/05/18 Rx Inhaler] bisoprolol fumarate 10 mg tablet 10 mg PO DAILY #30 tab 06/11/18 11/05/18 Rx omeprazole 20 mg capsule,delayed 20 mg PO HS 06/11/18 11/06/18 History release Escitalopram Oxalate [Lexapro] 20 mg PO HS 11/05/18 11/05/18 History Lisinopril [Lisinopril 10mg Tab] 10 mg PO HS 11/05/18 11/06/18 History Suvorexant [Belsomra] 20 mg PO HS 11/05/18 11/06/18 History Allergies Allergy/AdvReac Type Severity Reaction Status Date / Time codeine [CODEINE] Allergy Severe WHIVES Verified 06/11/18 08:54 erythromycin base Allergy Severe WHIVES Verified 06/11/18 08:54 [ERYTHROMYCIN BASE] Penicillins [PENICILLINS] Allergy Severe I-HIVES Verified 06/11/18 08:54 Sulfa (Sulfonamide Allergy Severe WHIVES Verified 06/11/18 08:54 Antibiotics) [SULFA (SULFONAMIDE ANTIBIOTICS)] Exam Vital signs and Labs for Last 24 Hours: Temp Pulse Resp BP Pulse Ox 100.2 F H 95 H 15 154/83 H 96 11/06/18 08:00 11/06/18 08:00 11/06/18 08:00 11/06/18 08:00 11/06/18 08:00 Laboratory Results - last 24 hr 11/05/18 19:55: WBC 16.4 H, RBC 4.85, Hgb 14.7, Hct 44.7, MCV 92.1, MCH 30.4, MCHC 33.0, RDW 13.2, Plt Count 334, MPV 6.5 L, Neut % (Auto) 82.8 H, Lymph % (Auto) 11.6, Granite % (Auto) 4.8, Eos % (Auto) 0.3, Baso % (Auto) 0.5, Neut # (Auto) 13.6 H, Lymph # (Auto) 1.9, Granite # (Auto) 0.8, Eos # (Auto) 0.1, Baso # (Auto) 0.1, Total Counted 100, Neutrophils % (Manual) 83 H, Lymphocytes % (Manual) 12, Monocytes % (Manual) 5, Platelet Estimate Normal, RBC Morphology Normal, ESR 26 11/05/18 19:55: Sodium 136, Potassium 3.8, Chloride 100, Carbon Dioxide 28, Anion Gap 11.8, BUN 13, Creatinine 1.02, Estimated Creat Clear 89, Estimated GFR 57 L, Est GFR ( Amer) 69, Glucose 117 H, Calcium 9.1, Total Bilirubin 1.1 H, AST 10 L, ALT 18, Alkaline Phosphatase 117 H, C-Reactive Protein 15.0 H, Total Protein 7.8, Albumin 3.3 L, Globulin 4.5 H, Albumin/Globulin Ratio 0.7 L, Amylase 19 L, Lipase 67 L 11/05/18 19:55: Lactate 1.4 11/06/18 05:56: Sodium 139, Potassium 4.5, Chloride 106, Carbon Dioxide 30, Anion Gap 7.5, BUN 13, Creatinine 1.03 H, Estimated Creat Clear 89, Estimated GFR 56 L, Est GFR ( Amer) 68, Glucose 118 H, Calcium 8.5, Total Bilirubin 1.2 H, AST 11 L, ALT 18, Alkaline Phosphatase 105, Total Protein 6.4, Albumin 2.6 L D, Globulin 3.8 H, Albumin/Globulin Ratio 0.7 L I & O for Last 24 hours: Intake & Output 11/03/18 11/04/18 11/05/18 11/06/18 11:59 11:59 11:59 11:59 Intake Total 1638 / 1638 Output Total 500 / 500 Balance 1138 / 1138 Weight 194 lb 6 oz - *Routine HEENT Exam Head: Present: normocephalic Eye: Present: EOMI, PERRL ENT: Present: mucous membranes moist - *Routine Neck Exam Present: supple. Absent: lymphadenopathy - *Routine Respiratory Exam Present: CTA bilaterally - *Routine Cardiovascular Exam Present: RRR - *Routine Abdominal Exam Present: soft, normoactive bowel sounds, tenderness Comments: She has significant tenderness with guarding in the right upper quadrant and ep igastrium. - *Routine Extremities Exam Absent: cyanosis, clubbing, edema - *Routine Skin Exam Present: warm. Absent: rash - *Routine Neurological Exam Present: alert, oriented X3 - Detailed Eye Exam Eyelids: Left normal inspection Results - Labs 11/05/18 19:55 11/06/18 05:56 Laboratory Results - last 24 hr 11/05/18 19:55: WBC 16.4 H, RBC 4.85, Hgb 14.7, Hct 44.7, MCV 92.1, MCH 30.4, MCHC 33.0, RDW 13.2, Plt Count 334, MPV 6.5 L, Neut % (Auto) 82.8 H, Lymph % (Auto) 11.6, Granite % (Auto) 4.8, Eos % (Auto) 0.3, Baso % (Auto) 0.5, Neut # (Auto) 13.6 H, Lymph # (Auto) 1.9, Granite # (Auto) 0.8, Eos # (Auto) 0.1, Baso # (Auto) 0.1, Total Counted 100, Neutrophils % (Manual) 83 H, Lymphocytes % (Manua l) 12, Monocytes % (Manual) 5, Platelet Estimate Normal, RBC Morphology Normal, ESR 26 11/05/18 19:55: Sodium 136, Potassium 3.8, Chloride 100, Carbon Dioxide 28, Anion Gap 11.8, BUN 13, Creatinine 1.02, Estimated Creat Clear 89, Estimated GFR 57 L, Est GFR ( Amer) 69, Glucose 117 H, Calcium 9.1, Total Bilirubin 1.1 H, AST 10 L, ALT 18, Alkaline Phosphatase 117 H, C-Reactive Protein 15.0 H, Total Protein 7.8, Albumin 3.3 L, Globulin 4.5 H, Albumin/Globulin Ratio 0.7 L, Amylase 19 L, Lipase 67 L 11/05/18 19:55: Lactate 1.4 11/06/18 05:56: Sodium 139, Potassium 4.5, Chloride 106, Carbon Dioxide 30, Anion Gap 7.5, BUN 13, Creatinine 1.03 H, Estimated Creat Clear 89, Estimated GFR 56 L, Est GFR ( Amer) 68, Glucose 118 H, Calcium 8.5, Total Bilirubin 1.2 H, AST 11 L, ALT 18, Alkaline Phosphatase 105, Total Protein 6.4, Albumin 2.6 L D, Globulin 3.8 H, Albumin/Globulin Ratio 0.7 L Assessment and Plan (1) Cholecystitis Current visit: Yes Status: Acute Category: Medical Code(s): K81.9 - Cholecystitis, unspecified - Assessment and plan all Dx Assessment and Plan for all problems:: Patient has acute cholecystitis. I discussed the nature of the condition with her. Plan will be to proceed with cholecystectomy with attempted laparoscopic and possible open procedure this afternoon. I explained to her the nature and details of the proposed procedure along with the associated risks. She understands and agrees to proceed.
--- NOTE | 2018-11-06 18:03 | Operative Note ---
Date of procedure: 11/06/18 Pre-op Diagnosis:: Acute cholecystitis Post-op Diagnosis:: Same Procedure performed:: Laparoscopic cholecystectomy Surgeon:: Malik Valente MD [employer] OPERATOR:: Joshua Quinonez Anesthesia: GETA Estimated blood loss (mL): 40 Clinical Note:: Patient is a very pleasant 53-year-old female. She had presented to the emergency department earlier this morning after she had been experiencing a 4- day history of abdominal pain. She states that this began several days ago as more of a substernal discomfort and heartburn type symptoms. However it became progressively severe and radiated and localized to the right upper quadrant. Due to the severity of her symptoms she presented to the emergency department earlier this morning. She was found to have a mild leukocytosis. She underwent CT scan which revealed large gallstone with radiographic evidence of acute cholecystitis. She was admitted for inpatient management and surgical consu ltation was obtained. She has undergone gallbladder ultrasound and this reveals findings consistent with acute cholecystitis. She has had some low-grade fever since admission. Operative findings:: Patient had a severely inflamed massively distended thickened gallbladder consistent with acute cholecystitis with acute inflammatory omental adhesions and pericholecystic fluid. There was at least one extremely large gallstone impacted in the gallbladder and the gallbladder was markedly distended and tense filled with sludge. There was some evidence of early posterior wall necrosis. Operative note:: Patient was taken to the operating room. She was given preoperative intravenous antibiotics. In the operating room she was placed in a supine position. General anesthesia was induced via endotracheal tube. Her abdomen was prepped and draped in the standard surgical fashion. Subumbilical skin incision was made and while performing abdominal wall lift Veress needle was inserted. CO2 pneumoperitoneum was achieved to 15 mmHg. 10/11 mm optical trocar was inserted at the umbilicus. She was positioned in reverse Trendelenburg left side down. A couple 5 mm trochars were inserted in the right upper abdomen. 10 mm trocar was inserted in the epigastrium. Initially was difficult to identify the gallbladder due to it being obscured with omental adhesions from acute inflammatory response. These were swept inferiorly. Gallbladder was identified and found to be massively distended and thickened with acute inflammatory process. It was very tense. Plan was made for attempted drainage of the gallbladder. Laparoscopic suction aspirator was inserted into the fundus of the gallbladder and thick sludge was aspirated from the gallbladder. However there was apparently a large stone impacted in the gallbladder and it could not be fully decompressed. Gallbladder was grasped retracted anterior laterally. There is intense acute inflammatory process around the andrea hepatis with a large amount of edema and initial identification of cystic structures was quite difficult. Prolonged dissection was carried out at the neck of the gallbladder bluntly dissecting the visceral peritoneum covering the gallbladder. Ultimately the cystic duct was identified and carefully dissected free and isolated. Cystic duct was multiply clipped and then divided. Cystic artery was identified and carefully coagulated with MERRILL ultrasonic harmonic kate and divided. Due to the inflammatory process a single Hemoclip was placed on the cystic duct stump. The gallbladder was dissected free from the liver in a retrograde fashion using MERRILL ultrasonic harmonic kate. Dissection process was rather prolonged due to the severe inflammation. It appears as though there were beginnings of posterior wall necrosis of the gallbladder secondary to the likely pressure necrosis from the large stone. Gallbladder was placed within an Endo Catch retrieval device. It was removed from the peritoneal cavity via the umbilical trocar site which required extension of the skin and fascial incisions for delivery. Pneumoperitoneum was then reestablished. Gallbladder fossa and perihepatic space was irrigated and aspirated until clear with approximately 3 L of warm saline irrigation. There appeared to be good hemostasis. Trochars were removed as CO2 pneumoperitoneum was evacuated. Fascia at the umbilical incision was closed with multiple interrupted #1 Vicryl. Local anesthetic was infiltrated. Skin incisions were closed with 4-0 Monocryl in a subcuticular fashion. Steri-Strips and dressings were applied. Patient tolerated the procedure well with no immediate complications. Condition: stable Disposition: PACU Specimens:: Gallbladder and contents Complications:: None immediately apparent
--- NOTE | 2018-11-06 18:17 | Progress Note ---
[facility] Anesthesia Checklist - Structural Data Admitted From: Home Planned Operative Procedure/s: jose danial Consent for Planned Operative Procedure(s) Verified: Yes - Airway Assessment C-Spine Mobility Assessed: Yes TMJ Mobility Assessed: Yes Dentition: Good Dentition - Neurological Assessment Level of Consciousness: Awake, Alert, Appropriate - Anesthesia Plan Anesthesia Risk discussed: Yes Anesthesia Plan: Verified ASA Class: II Anesthesia Type: General [facility] History I have reviewed the patient's past medical history: Yes Medical History: Reports:: Anxiety, Arrhythmia, Depression, Gastroesophageal Reflux Disease(GERD), Hypertension, Kidney Stones Denies:: Cancer, Coronary Artery Disease, Diabetes Mellitus Type 1, Diabetes Mellitus Type 2, MRSA *Have you ever received a pneumonia vaccine?: No *Have you received a flu vaccine this season?: Yes Other Medical History: Reports: Hypothyroidism, Thyroid Disease, Other Laterality Cases: Left: Other Other Surgeries: Yes: Colonoscopy, Other (left foot, ablation, lithotripsy x 3) Amputation: No Fractures: No - *Social History Educational Level: Attended College Smoking Status: Never smoker Alcohol Intake: current Alcohol Intake Frequency:: holidays/special occasions only Substance Use Type: denies use *Occupational Status:: employed Housing: house Household Members: spouse *Travel in the last 8 weeks: None - Psychiatric History Expresses thoughts of harming self/others: None Suicide Plan Description: No Plan Pschychiatric History:: Reports:: Anxiety, Depression Family Hx:: Cancer, Hypertension, Thyroid Disorder
--- NOTE | 2018-11-06 18:18 | Progress Note ---
[facility] Anesthesia Record Part I Intake, IV Amount: 1,500 Estimated blood loss (mL): 0 Urine output (mL): 0 Blood Pressure: 149/63 SaO2: 94 Pulse Rate: 97 Respiratory Rate: 14 Temperature: 98 F Patient is:: Awake, Stable Stable to PACU at:: 18:15
--- NOTE | 2018-11-06 18:19 | Progress Note ---
[facility] Anesthesia Record Part II Discharge Time: 18:45 Destination: floor PACU nurse assessment reviewed?: Yes Patient Condition:: Good Anesthesia Complications:: None Swallowing reflex intact?: Yes Cyanosis?: No
[2018-11-07 06:36] LABS: Basophils % 0.1 % (0.1-2.0); Eosinophils % 0.1 % (0.1-12.0); Hematocrit 37.1 % (37.0-47.0); Hemoglobin 12.1 g/dL (12.2-16.2); Lymphocytes # 0.8 K/mm3 (0.7-4.5); Lymphocytes % 8.2 % (10-50); Mean Corpuscular HGB Conc 32.5 g/dL (31.8-35.4); Mean Corpuscular Volume 92.8 fl (81-99); Mean Platelet Volume 7.5 fl (7.4-10.4); Monocytes # 0.2 K/mm3 (0.1-1.0); Neutrophils # 8.2 K/mm3 (1.8-7.8); Neutrophils % 89.6 % (37.0-80.0); Platelet Count 294 K/mm3 (142-424); Red Cell Distribution Width 13.1 % (11.5-17.5); White Blood Count 9.2 K/mm3 (4.8-10.8)
[2018-11-07 06:52] LABS: Albumin Level 2.2 gm/dL (3.4-5.0); Albumin/Globulin Ratio 0.6 (1.1-1.8); Anion Gap 11.3 mEq/L (5-15); Bilirubin,Total 0.7 mg/dL (0.2-1.0); Calcium 8.4 mg/dL (8.5-10.1); Globulin 3.9 gm/dl (1.3-3.2); Total Protein,Serum 6.1 gm/dL (6.4-8.2)
--- NOTE | 2018-11-07 06:55 | Progress Note ---
Internal Medicine - PN: Subj *Date: 11/07/18 *Time: 06:54 Interval history: Patient feels better this morning. She has minimal abdominal pain. She has tolerated full liquids without problems. She has not had a bowel movement but is passing gas. Exam Vital signs and Labs for Last 24 Hours: Temp Pulse Resp BP Pulse Ox 97.7 F 70 17 140/74 91 L 11/07/18 04:00 11/07/18 04:00 11/07/18 04:00 11/07/18 04:00 11/07/18 04:00 Laboratory Results - last 24 hr 11/06/18 05:56: Sodium 139, Potassium 4.5, Chloride 106, Carbon Dioxide 30, Anion Gap 7.5, BUN 13, Creatinine 1.03 H, Estimated Creat Clear 89, Estimated GFR 56 L, Est GFR ( Amer) 68, Glucose 118 H, Calcium 8.5, Total Bilirubin 1.2 H, AST 11 L, ALT 18, Alkaline Phosphatase 105, Total Protein 6.4, Albumin 2.6 L D, Globulin 3.8 H, Albumin/Globulin Ratio 0.7 L 11/06/18 15:50: Urine HCG, Qual Negative I & O for Last 24 hours: Intake & Output 11/04/18 11/05/18 11/06/18 11/07/18 11:59 11:59 11:59 11:59 Intake Total 1638 / 1638 2884 / 2884 Output Total 650 / 650 800 / 800 Balance 988 / 988 2084 / 2084 Weight 197 lb 5 oz 197 lb Narrative: Patient is in no distress. Lungs are clear. Heart has a regular rate and rhythm. Abdomen is soft and mildly distended with no tenderness. Bowel sounds are present Assessment and Plan (1) Cholecystitis Current visit: Yes Status: Acute Category: Medical Code(s): K81.9 - Cholecystitis, unspecified - Assessment and plan all Dx Assessment and Plan for all problems:: Patient underwent laparoscopic cholecystectomy yesterday and is doing well postoperatively. Likely discharge today.
--- NOTE | 2018-11-07 06:57 | Discharge Summary ---
General - General Admission date:: 11/05/18 Discharge date: 11/07/18 HPI HPI: Patient presented to the emergency department yesterday evening with 4-day history of epigastric and right upper quadrant abdominal pain that was constant in nature and made worse by eating any food. She had associated vomiting and nausea but no diarrhea. Patient denies fevers or chills. She underwent work-up in the emergency department. Exam revealed abdominal tenderness in the right upper quadrant and epigastrium, patient had an elevated white blood cell count, CT scan showed a 3 cm gallstone with pericholecystic fluid and fat stranding consistent with acute cholecystitis. CT scan also revealed nonobstructive renal stones. Patient was diagnosed with acute cholecystitis and admitted for surgical evaluation. Gallbladder ultrasound is scheduled for this morning and has yet to be performed. At present patient states her pain is tolerable as she is recently received some intravenous narcotic. Nausea is controlled at this time as well Hospital Course Hospital Course: On November 06 patient underwent surgical consultation and had subsequent laparoscopic cholecystectomy. Postoperatively there were no complications and patient was tolerating a full liquid diet. Following morning on November 07 as patient continued to do well she was discharged home. Patient will follow-up with Dr. Valente per his instructions. Objective Vital signs: Temp Pulse Resp BP Pulse Ox 97.7 F 70 17 140/74 91 L 11/07/18 04:00 11/07/18 04:00 11/07/18 04:00 11/07/18 04:00 11/07/18 04:00 Results Labs on day of discharge: Labs from last 24 hours 11/06/18 11/06/18 15:50 05:56 Sodium 139 Potassium 4.5 Chloride 106 Carbon Dioxide 30 Anion Gap 7.5 BUN 13 Creatinine 1.03 H Estimated Creat Clear 89 Estimated GFR 56 L Est GFR ( Amer) 68 Glucose 118 H Calcium 8.5 Total Bilirubin 1.2 H AST 11 L ALT 18 Alkaline Phosphatase 105 Total Protein 6.4 Albumin 2.6 L D Globulin 3.8 H Albumin/Globulin Ratio 0.7 L Urine HCG, Qual Negative DS: Diagnosis - Discharge Diagnosis (1) Cholecystitis Status: Acute Discharge Plan - Patient Discharge Instructions ACTIVITY: Continue current activity DIET: continue same diet Patient Instructions: DI for Cholecystitis - Follow up Plan Follow up with: Malik Valente MD [Staff Physician] - Disposition: Home, Self-Assisted Medications: Home Medications Medication Instructions Recorded Confirmed Type thyroid (pork) 30 mg tablet 30 mg PO DAILY 05/14/18 11/05/18 History Albuterol Sulfate [Albuterol HFA 2 puffs IH Q6HP PRN #1 inh 06/03/18 11/05/18 Rx Inhaler] bisoprolol fumarate 10 mg tablet 10 mg PO DAILY #30 tab 06/11/18 11/05/18 Rx omeprazole 20 mg capsule,delayed 20 mg PO HS 06/11/18 11/06/18 History release Escitalopram Oxalate [Lexapro] 20 mg PO HS 11/05/18 11/05/18 History Lisinopril [Lisinopril 10mg Tab] 10 mg PO HS 11/05/18 11/06/18 History Suvorexant [Belsomra] 20 mg PO HS 11/05/18 11/06/18 History Prescriptions/Medication Reconciliation: Continued bisoprolol fumarate 10 mg tablet 10 mg PO DAILY #30 tab thyroid (pork) 30 mg tablet 30 mg PO DAILY omeprazole 20 mg capsule,delayed release 20 mg PO HS Suvorexant [Belsomra] 20 mg PO HS Albuterol Sulfate [Albuterol HFA Inhaler] 2 puffs IH Q6HP PRN #1 inh PRN Reason: Shortness Of Breath Or Wheezing Lisinopril [Lisinopril 10mg Tab] 10 mg PO HS Escitalopram Oxalate [Lexapro] 20 mg PO HS
--- NOTE | 2018-11-07 07:53 | Progress Note ---
Subjective Patient reports: feels better Narrative: Patient feels much better. She has tolerated full liquid diet without nausea. Exam Vital signs and Labs for Last 24 Hours: Temp Pulse Resp BP Pulse Ox 97.7 F 70 17 140/74 91 L 11/07/18 04:00 11/07/18 04:00 11/07/18 04:00 11/07/18 04:00 11/07/18 04:00 Laboratory Results - last 24 hr 11/06/18 15:50: Urine HCG, Qual Negative 11/07/18 06:08: WBC 9.2 D, RBC 4.00 L, Hgb 12.1 L, Hct 37.1, MCV 92.8, MCH 30.1, MCHC 32.5, RDW 13.1, Plt Count 294, MPV 7.5, Neut % (Auto) 89.6 H, Lymph % (Auto) 8.2 L, [place] % (Auto) 2.0, Eos % (Auto) 0.1, Baso % (Auto) 0.1, Neut # (Auto) 8.2 H, Lymph # (Auto) 0.8, [place] # (Auto) 0.2, Eos # (Auto) 0.0, Baso # (Auto) 0.0 11/07/18 06:08: Sodium 139, Potassium 4.3, Chloride 106, Carbon Dioxide 26, Anion Gap 11.3, BUN 11, Creatinine 0.83, Estimated Creat Clear 112, Estimated GFR 72, Est GFR ( Amer) 87 D, Glucose 154 H, Calcium 8.4 L, Total Bilirubin 0.7, AST 21 D, ALT 26 D, Alkaline Phosphatase 124 H, Total Protein 6.1 L, Albumin 2.2 L D, Globulin 3.9 H, Albumin/Globulin Ratio 0.6 L I & O for Last 24 hours: Intake & Output 11/04/18 11/05/18 11/06/18 11/07/18 11:59 11:59 11:59 11:59 Intake Total 1638 / 1638 2884 / 2884 Output Total 650 / 650 800 / 800 Balance 988 / 988 2084 / 2084 Weight 197 lb 5 oz 197 lb - *Routine Abdominal Exam Present: soft Progress Note: A&P (1) Cholecystitis Status: Acute Current Visit: Yes Assessment and Plan for All Diagnoses:: Discharge home today
[2018-11-07 08:09] LABS: Lymphocytes % 8 % (10-50); Monocytes % 1 % (2-9); Neutrophils % 91 % (42-76); Total Cells Counted 100
[2018-11-07 08:15] LABS: RBC Morphology Normal
== END 2018-11-07 09:00 | disposition home or self-care (01) ==
LOC: ER 19:25 → 2ND 22:44 → INTOOBSV 23:20 → 2ND 23:21
PROVIDERS: ADMIT Internal Medicine Adolescent Medicine; ATTEND Family Medicine
CPT/HCPCS: 36415; 74177; 76705; 80053; 81025; 82150; 83605; 83690; 85007; 85025; 85651; 86140; 87040; 96365; 96367; 96375; 99284; G0378; J0131; J1335; J2405; J2710; Q9967; S0077

== ENCOUNTER 2020-10-20 14:28 | Emergency (ER) | payer OTHER, SELFPAY ==
[2020-10-20 14:37] VITALS: BP 140/98; PULSE 65; RESP 21; TEMP 36.8; O2SAT 98; BMI 33.6
[2020-10-20 14:46] LABS: Apearance,Urine Clear (Clear); Color,Urine Yellow (Yellow)
[2020-10-20 14:47] LABS: Bilirubin,Urine Negative (Negative); Blood, Urine 3+ (Negative); Glucose,Urine (UA) Negative (Negative); Ketones,Urine Negative (Negative); PH,Urine 5.5 (5.0-8.5); Protein,Urine 2+ (Negative); Specific Gravity, Urine 1.025 (1.005-1.030); UTC Leukocyte Esterase,Urine 1+ (Negative); UTC Nitrate,Urine Negative (Negative); Urobilinogen,Urine 0.2 EU/dl (0.2)
--- NOTE | 2020-10-20 15:11 | HMH.EDUTC ---
[facility] [place] Clinical Impression: UTI (urinary tract infection) Qualifiers: Urinary tract infection type: site unspecified Hematuria presence: with hematuria Qualified Code(s): N39.0 - Urinary tract infection, site not specified Disposition: Home, Self-Care Condition on Discharge: Good Instructions: Urinary Tract Infection, Nitrofurantoin, DI for Flank Pain Additional Instructions: *Increase fluids. Water not Soda or Tea *Start antibiotic immediately and be sure to take as ordered for the FULL length of time although you should start to see improvement over the next 48 hours *Be SURE to follow up anytime for new or worsening symptoms with your family doctor. AND in 48 hours for urine culture results with your family doctor, if you do not have a doctor then you may call back to the [facility] for urine culture results and further treatment. We do recommend that you choose and establish care with a Primary Care Physician. AND follow up with them in 10-14 days to repeat UA to ensure infection is resolved and blood no longer present *Be sure to let your PCP know that we sent urine cultures from the [facility] so they can follow up to ensure that you area the on the correct antibiotic Call your doctor office and make appointment for 48 hours (2 days from today) to follow up and get the results of your urine culture and further treatment Make sure to follow up with your Family Doctor if no improvement or any worsening of symptoms Straight to ER if any life threatening symptoms, fever, chills, body aches or inability to urinate Prescriptions: Nitrofurantoin Monohyd/M-Cryst [Macrobid 100 mg Capsule] 100 mg PO BID 7 Days #14 cap Transmission Status: Pending to [facility] #[id number] Referrals: Javier Wasserman MD [Primary Care Provider] - As needed Time of Disposition: 15:21 Medical Decision Making - Hernan Inquiry Pt receiving controlled substance: No Hernan was queried for this patient: No Vital Signs: 10/20/20 14:37 Temperature 98.3 F Temperature Source Oral Pulse Rate [Left] 65 Respiratory Rate 21 Blood Pressure [Right Arm] 140/98 H Blood Pressure Mean [Right Arm] 112 02 Sat by Pulse Oximetry 98 - Lab Data Lab results reviewed: Yes: I reviewed the patient's lab results. Lab Results 10/20/20 14:38: Urine Color Yellow, Urine Appearance Clear, Urine pH 5.5, Ur Specific [place] 1.025, Urine Protein 2+, Urine Glucose (UA) Negative, Urine Ketones Negative, Urine Blood 3+, Urine Nitrate Negative, Urine Bilirubin Negative, Urine Urobilinogen 0.2, Ur Leukocyte Esterase 1+ A Orders (Tests/Meds): ORDERS Category Date Time Status Urine Culture Stat Micro 10/20/20 14:38 Received Medical Decision Narrative: Discussed with patient about transfer to the ED for further work up and evaluation to rule out kidney stone and patient declined transfer States that this does not feel like kidney stones that she will take the treatment for the UTI and follow up with her PCP if no improvement or any worsening of symptoms or go straight to the ED if worsening of pain, difficulty urinating, fever, chills or body aches [facility] [place] - General Stated complaint: pain in right back radiating around to stomach Time Seen by Provider: 10/20/20 15:11 Mode of Arrival: Ambulatory Source of Information: Patient Limitations: No Limitations Description of Symptoms (Recalled from Triage Doc. by RN): pt c/o of R flank pain that goes into her back and abd. this started about 0630. pt has no urinary symptoms but has a hx of kidney stones. HEENT Symptoms (Recalled from RN notes): No Resp Symptoms (Recalled from RN notes): No Skin Symptoms (Recalled from RN notes): No MS Symptoms (Recalled from RN notes): No Functional Status (Recalled from RN notes): na - History of Present Illness Provider Complaint: Patient states she started having right flank pain around 630 this morning State that it was an achy like feeling in her right side that radiates from back
[2020-10-20 15:24] VITALS: BP 140/96; PULSE 87; RESP 19; TEMP 37.1; O2SAT 99
== END 2020-10-20 15:24 | disposition home or self-care (01) ==
PROVIDERS: Emergency Provider Nurse Practitioner; PCP Family Medicine
DX: N30.00 Acute cystitis without hematuria (principal); I10 Essential (primary) hypertension; K21.9 Gastro-esophageal reflux disease without esophagitis; F41.8 Other specified anxiety disorders; Z87.442 Personal history of urinary calculi; Z79.899 Other long term (current) drug therapy
CPT/HCPCS: 81003; 87086; 99202; G0463

== ENCOUNTER → 2020-11-03 14:04 | Outpatient (CLI) | payer OTHER, SELFPAY ==
--- NOTE | 2020-11-03 14:18 | XR_ITS ---
PROCEDURE: XR KUB CLINICAL INDICATION: RT FLANK PAIN,H/O RENAL CALCULI,LEUKOCYTOSIS COMPARISON: CT ABDPELW CT abdomen pelvis w con from 11/05/2018 FINDINGS: Rounded calcific density is present to the right L2-L3 at 15 mm and to the left of L2 at 16 mm consistent with bilateral stones within the renal pelves. A 4 mm stone projects over the upper pole of the left kidney. Prior cholecystectomy IMPRESSION: Bilateral nephrolithiasis Dictated by: Beka Toussaint MD 11/03/2020 14:38 Beka Toussaint MD in [place] 11/03/2020 14:38
[2020-11-03 14:33] LABS: Basophils # 0.1 K/mm3 (0-0.2); Basophils % 0.8 % (0.1-2.0); Eosinophils # 0.5 K/mm3 (0.0-0.4); Eosinophils % 3.4 % (0.1-12.0); Hematocrit 42.8 % (37.0-47.0); Hemoglobin 14.5 g/dL (12.2-16.2); Lymphocytes # 2.2 K/mm3 (0.7-4.5); Lymphocytes % 13.7 % (10-50); Mean Corpuscular HGB Conc 33.9 g/dL (31.8-35.4); Mean Corpuscular Hemoglobin 30.6 pg (27.0-31.2); Mean Corpuscular Volume 90.1 fl (81-99); Monocytes # 0.6 K/mm3 (0.1-1.0); Monocytes % 3.6 % (1.7-9.3); Neutrophils # 12.4 K/mm3 (1.8-7.8); Neutrophils % 78.6 % (37.0-80.0); Platelet Count 348 K/mm3 (142-424); Red Blood Count 4.75 M/mm3 (4.20-5.40); Red Cell Distribution Width 13.7 % (11.5-17.5); White Blood Count 15.8 K/mm3 (4.8-10.8)
[2020-11-03 14:38] LABS: MANUAL DIFFERENTIAL MANUAL DIFFERENTIAL (MANUAL DIFF)
[2020-11-03 15:02] LABS: Chloride 102 mmol/L (98-107); Sodium 140 mmol/L (136-145)
[2020-11-03 15:04] LABS: Blood Urea Nitrogen 14 mg/dl (7-17); Estimated Glomerular Filt Rate 58 ml/min (>60); GFR (African American) 70 ML/MIN (>60)
[2020-11-03 15:05] LABS: Alanine Aminotransferase 21 U/L (12-78); Albumin Level 4.4 g/dl (3.5-5.0); Albumin/Globulin Ratio 1.4 (1.1-1.8); Alkaline Phosphatase 147 U/L (38-126); Aspartate Amino Transferase 32 U/L (14-36); Bilirubin,Total 0.8 mg/dl (0.2-1.3); Carbon Dioxide 31 mmol/L (22.0-30.0); Globulin 3.2 g/dL (1.3-3.2); Glucose 104 mg/dl (74-100); Total Protein,Serum 7.6 g/dl (6.3-8.2)
[2020-11-03 15:23] LABS: Eosinophils % 4 % (0-3); Lymphocytes % 14 % (10-50); Monocytes % 4 % (2-9); Neutrophils % 77 % (42-76); Platelet Estimate Normal; Total Cells Counted 100
== END ==
PROVIDERS: Visit Provider Nurse Practitioner Family
DX: R10.9 Unspecified abdominal pain (principal); D72.829 Elevated white blood cell count, unspecified; Z87.442 Personal history of urinary calculi
CPT/HCPCS: 36415; 74018; 80053; 85007; 85025

== ENCOUNTER 2020-11-05 13:34 | Observation (INO) | payer OTHER, SELFPAY ==
[2020-11-05] VITALS (13 sets, daily range): BP systolic 102–141; BP diastolic 56–84; PULSE 65–86; RESP 14–19; TEMP 36.8–38.9; O2SAT 90–100; BMI 31.6; BMI 33.3
--- NOTE | 2020-11-05 13:33 | ECG_ITS ---
APPROVED REPORT Exam: Resting ECG HR:79 bpm ECG Measurements Heart Rate 79 AXES [place] 130 P 43 QRSd 80 QRS 9 QT 412 T 34 QTc 472 Conclusion Normal sinus rhythm Normal ECG Electronically signed by : Javier Taylor, 11/07/2020 21:02:49
--- NOTE | 2020-11-05 13:36 | HMH.EDGENADL ---
ED Disposition Clinical Impression: Fever Qualifiers: Fever type: unspecified Qualified Code(s): R50.9 - Fever, unspecified Leukocytosis Qualifiers: Leukocytosis type: unspecified Qualified Code(s): D72.829 - Elevated white blood cell count, unspecified Disposition: Admitted as Observation Condition on Discharge: Good Referrals: Javier Wasserman MD [Primary Care Provider] - Time of Disposition: 17:26 - Critical Care Critical Care Time: No Attestation: On , the high probability of a clinically significant, sudden or life threatening deterioration of the following system(s) required my full and direct attention, intervention and personal management. The time I documented below is in addition to time spent performing reported procedures but includes the following listed in this critical care notation. Medical Decision Making - Medical Records Medical records reviewed: Yes: I reviewed the patient's medical records. - Hernan Inquiry Pt receiving controlled substance: No Vital Signs: 11/05/20 13:35 11/05/20 14:00 11/05/20 14:30 Temperature 100.5 F H Temperature Source Oral Pulse Rate 78 77 Pulse Rate [Radial] 77 Respiratory Rate 16 14 14 Blood Pressure 117/73 124/71 Blood Pressure [Right Arm] 141/84 H Blood Pressure Mean 87 85 Blood Pressure Mean [Right Arm] 103 Blood Pressure Position [Right Arm] Sitting 02 Sat by Pulse Oximetry 98 94 L 93 L Oxygen Delivery Method Room Air Room Air Room Air 11/05/20 15:00 11/05/20 15:18 11/05/20 15:30 Temperature 102.1 F H Temperature Source Oral Pulse Rate 80 79 Pulse Rate [Radial] Respiratory Rate 16 18 Blood Pressure 123/73 124/71 Blood Pressure [Right Arm] Blood Pressure Mean 89 Blood Pressure Mean [Right Arm] Blood Pressure Position [Right Arm] 02 Sat by Pulse Oximetry 100 90 L Oxygen Delivery Method Room Air 11/05/20 16:00 11/05/20 16:23 Temperature 100.4 F H Temperature Source Oral Pulse Rate 86 Pulse Rate [Radial] Respiratory Rate 19 Blood Pressure 123/73 Blood Pressure [Right Arm] Blood Pressure Mean Blood Pressure Mean [Right Arm] Blood Pressure Position [Right Arm] 02 Sat by Pulse Oximetry 90 L 92 L Oxygen Delivery Method Room Air - Lab Data Lab Results 11/05/20 13:35: WBC 17.6 H, RBC 4.80, Hgb 14.5, Hct 43.4, MCV 90.3, MCH 30.2, MCHC 33.4, RDW 13.8, Plt Count 309, MPV 7.2 L, Neut % (Auto) 91.7 H, Lymph % (Auto) 5.3 L, [place] % (Auto) 0.8 L, Eos % (Auto) 1.5, Baso % (Auto) 0.7, Neut # (Auto) 16.1 H, Lymph # (Auto) 0.9, [place] # (Auto) 0.1, Eos # (Auto) 0.3, Baso # (Auto) 0.1, Total Counted 100, Neutrophils % (Manual) 94 H, Lymphocytes % (Manual) 4 L, Monocytes % (Manual) 1 L, Eosinophils % (Manual) 1, Platelet Estimate Normal, Hypochromasia 1+ 11/05/20 13:35: Sodium 142, Potassium 4.0, Chloride 104, Carbon Dioxide 29, Anion Gap 13.0, BUN 12, Creatinine 0.90, Estimated Creat Clear 97, Estimated GFR 65, Est GFR ( Amer) 79, Glucose 118 H, Calcium 9.2, Total Bilirubin 0.7, AST 33, ALT 20, Alkaline Phosphatase 134 H, Total Protein 7.5, Albumin 4.1, Globulin 3.4 H, Albumin/Globulin Ratio 1.2 11/05/20 13:46: Urine Color Yellow, Urine Appearance Clear, Urine pH 6.0, Ur Specific [place] 1.010, Urine Protein Trace, Urine Glucose (UA) Negative, Urine Ketones Negative, Urine Blood 2+, Urine Nitrate Negative, Urine Bilirubin Negative, Urine Urobilinogen 0.2, Ur Leukocyte Esterase 1+ A, Urine RBC 10-20, Urine WBC 5-10, Ur Squamous Epith Cells None, Urine Bacteria Trace 11/05/20 13:46: Urine HCG, Qual Negative 11/05/20 13:46: Urine Opiates Screen Positive H, Urine Methadone Screen Negative, Ur Barbituates Screen Negative, Ur Phencyclidine Scrn Negative, Ur Amphetamines Screen Negative, U Benzodiazepines Scrn Negative, Urine Cocaine Screen Negative, U Marijuana (THC) Screen Negative Result diagrams: 11/05/20 13:35 11/05/20 13:35 Orders (Tests/Meds): ED MEDICATIONS Discontinued Medications Generi
--- NOTE | 2020-11-05 13:39 | XR_ITS ---
PROCEDURE: XR CHEST PORTABLE CLINICAL HISTORY: ams Chest pain COMPARISON: CR CXR CHEST(2 VIEWS-NOT PORTABLE) from 03/13/2016 CR CXR2V XR chest 2V from 08/05/2017 CR CXR2V XR chest 2V from 06/02/[address] abdomen pelvis w con from 11/05/2018 FINDINGS: Mild cardiomegaly without failure. The lungs are clear without infiltrates, suspicious nodules, or pleural effusions. No acute bony abnormalities. IMPRESSION: Mild cardiomegaly otherwise negative Dictated by: Beka Toussaint MD 11/05/2020 14:53 Beka Toussaint MD in [facility] 11/05/2020 14:53
[2020-11-05 13:50] LABS: Microscopic, Urine URINE MICROSCOPIC (MICROSCOPIC)
[2020-11-05 13:54] LABS: Appearance,Urine CLEAR (Clear); Bilirubin,Urine Negative (Negative); Blood, Urine 2+ (Negative); Color,Urine YELLOW (Yellow); Glucose,Urine (UA) Negative (Negative); Ketones,Urine Negative (Negative); Leukocyte Esterase,Urine 1+ (Negative); Nitrate,Urine Negative (Negative); Protein,Urine TRACE (Negative); Urobilinogen,Urine 0.2 EU/dl (0.2)
[2020-11-05 13:55] LABS: Urine Pregnancy, HCG Qual. Negative (Negative)
[2020-11-05 13:55] LABS: Basophils # 0.1 K/mm3 (0-0.2); Basophils % 0.7 % (0.1-2.0); Eosinophils # 0.3 K/mm3 (0.0-0.4); Eosinophils % 1.5 % (0.1-12.0); Hematocrit 43.4 % (37.0-47.0); Hemoglobin 14.5 g/dL (12.2-16.2); Lymphocytes # 0.9 K/mm3 (0.7-4.5); Lymphocytes % 5.3 % (10-50); Mean Corpuscular HGB Conc 33.4 g/dL (31.8-35.4); Mean Corpuscular Hemoglobin 30.2 pg (27.0-31.2); Mean Corpuscular Volume 90.3 fl (81-99); Mean Platelet Volume 7.2 fl (7.4-10.4); Monocytes # 0.1 K/mm3 (0.1-1.0); Monocytes % 0.8 % (1.7-9.3); Neutrophils # 16.1 K/mm3 (1.8-7.8); Neutrophils % 91.7 % (37.0-80.0); Platelet Count 309 K/mm3 (142-424); Red Cell Distribution Width 13.8 % (11.5-17.5); White Blood Count 17.6 K/mm3 (4.8-10.8)
[2020-11-05 13:58] LABS: MANUAL DIFFERENTIAL MANUAL DIFFERENTIAL (MANUAL DIFF)
[2020-11-05 13:59] LABS: Chloride 104 mmol/L (98-107); Sodium 142 mmol/L (136-145)
[2020-11-05 14:01] LABS: Alanine Aminotransferase 20 U/L (12-78); Aspartate Amino Transferase 33 U/L (14-36); Blood Urea Nitrogen 12 mg/dl (7-17); Creatinine Clearance Estimated 97 mL/min (50-200); Estimated Glomerular Filt Rate 65 ml/min (>60); GFR (African American) 79 ML/MIN (>60)
[2020-11-05 14:02] LABS: Albumin Level 4.1 g/dl (3.5-5.0); Albumin/Globulin Ratio 1.2 (1.1-1.8); Alkaline Phosphatase 134 U/L (38-126); Bilirubin,Total 0.7 mg/dl (0.2-1.3); Calcium 9.2 mg/dl (8.4-10.2); Carbon Dioxide 29 mmol/L (22.0-30.0); Globulin 3.4 g/dL (1.3-3.2); Glucose 118 mg/dl (74-100); Total Protein,Serum 7.5 g/dl (6.3-8.2)
[2020-11-05 14:05] LABS: Eosinophils % 1 % (0-3); Lymphocytes % 4 % (10-50); Monocytes % 1 % (2-9); Neutrophils % 94 % (42-76); Total Cells Counted 100
[2020-11-05 14:06] LABS: Hypochromasia 1+; Platelet Estimate Normal
[2020-11-05 14:15] LABS: Bacteria,Urine Trace /lpf
[2020-11-05 14:19] LABS: Amphetamine/Metha Screen,Urine Negative ng/ml (<1000)
[2020-11-05 14:20] LABS: Barbiturates Screen,Urine Negative ng/ml (<200)
[2020-11-05 14:21] LABS: Benzodiazepines Screen,Urine Negative ng/ml (<200); Cannabinoid Screen,Urine Negative ng/ml (<50)
[2020-11-05 14:22] LABS: Cocaine Screen,Urine Negative ng/ml (<300); Methadone Screen,Urine Negative ng/ml (<300)
[2020-11-05 14:23] LABS: Opiate Screen,Urine Positive ng/ml (<300)
[2020-11-05 14:24] LABS: Phencyclidine Screen,Urine Negative ng/ml (<25)
--- NOTE | 2020-11-05 15:36 | CT_ITS ---
PROCEDURE: CT ABDOMEN PELVIS WO CON CLINICAL INDICATION: PAIN Kidney stones, fever, bilateral abdominal pain COMPARISON: CT ABDPELW CT abdomen pelvis w con from 11/05/2018 TECHNIQUE: Axial images obtained with sagittal and coronal reformats. All CT scans at the facility use one or more dose reduction, viz: automated exposure control, ma/kV adjustment per patient size (including targeted exams where dose is matched to indication, i.e. head), or iterative reconstruction technique. FINDINGS: LOWER THORAX: There are atelectatic changes in the lingula. There is mild pericardial thickening ABDOMEN & PELVIS: Prior cholecystectomy. No focal liver lesion evident. Mild splenomegaly at 15 cm. Pancreas has an unremarkable appearance. No adrenal nodule or mass. There is a 13 mm stone at the right renal pelvis. There is mild right hydronephrosis. There is narrowing of the right renal pelvis at the UPJ. The right renal stone lies posterior within the renal pelvis and is not at the UPJ. There is a 14 mm stone within the left renal pelvis also posterior to the ureteropelvic junction. There is moderate left hydronephrosis. No distal ureteral calculi are evident. There are other smaller stones within the left kidney. There is some minimal haziness of the peripelvic renal fat of both kidneys. No evidence of appendicitis. There is colonic diverticulosis. No evidence of diverticulitis. No pelvic mass or abnormal fluid collection. No acute bony anomaly. IMPRESSION: Bilateral nephrolithiasis. Prominent stones are present in the renal pelvis on both sides. In the supine position, the stones do not appear causing obstruction however, there is moderate left hydronephrosis and mild to moderate right hydronephrosis. It is conceivable that this stones could be causing UPJ obstruction in the upright or prone position. There is some mild haziness of the peripelvic renal fat which may indicate underlying urinary tract infection. No distal ureteral calculi evident. Dictated by: Beka Toussaint MD 11/05/2020 16:23 Beka Toussaint MD in [place] 11/05/2020 16:23
[2020-11-05 17:24] LABS: Coronavirus 19, PCR Not Detected (NotDetected); Influenza A, PCR Not Detected (NotDetected); Influenza B, PCR Not Detected (NotDetected)
--- NOTE | 2020-11-05 18:00 | PC.NURSE ---
REPORT CALLED TO TARIQ CASTILLO
--- NOTE | 2020-11-05 18:08 | P.CONPHA_ITS ---
[facility] Pharmacy VTE Monitoring - Patient Demographics Admission date: 11/05/20 Report Date: 11/05/20 Time: 18:08 Allergies/Adverse Reactions: Patient Allergies codeine [CODEINE] Allergy (Severe, Verified 09/07/20 13:52) WHIVES erythromycin base [ERYTHROMYCIN BASE] Allergy (Severe, Verified 09/07/20 13:52) WHIVES Penicillins [PENICILLINS] Allergy (Severe, Verified 09/07/20 13:52) I-HIVES Sulfa (Sulfonamide Antibiotics) [SULFA (SULFONAMIDE ANTIBIOTICS)] Allergy (Severe, Verified 09/07/20 13:52) WHIVES Height: 1.65 m Weight: 86.183 kg Patient Problems: Current Active Problems Fever (Acute) Leukocytosis (Acute) - VTE Risk Labs: VTE Related Lab Results Hgb 14.5 g/dL (12.2-16.2) 11/05/20 13:35 Hct 43.4 % (37.0-47.0) 11/05/20 13:35 Plt Count 309 K/mm3 (142-424) 11/05/20 13:35 BUN 12 mg/dl (7-17) 11/05/20 13:35 Creatinine 0.90 mg/dl (0.52-1.04) 11/05/20 13:35 Estimated Creat Clear 97 mL/min (50-200) 11/05/20 13:35 - Prophylaxis VTE Prophylaxis Ordered?: Yes Types of VTE Prophylaxis: TEDS Knee High Pharmacologic Type: Enoxaparin
--- NOTE | 2020-11-05 18:09 | PC.NURSE ---
PT UP TO BATHROOM AMBULATORY, STEADY GAIT
[2020-11-05 18:19] LABS: Lactic Acid 2.3 mmol/L (0.7-2.1)
--- NOTE | 2020-11-05 19:36 | HMH.PHACONS ---
- Pharmacy Consult Date: 11/05/20 Time: 19:36 Referring provider: DR. THURMAN Reason for Consult:: VANCOMYCIN DOSING Allergies and ADEs:: Allergies Allergy/AdvReac Type Severity Reaction Status Date / Time codeine [CODEINE] Allergy Severe WHIVES Verified 09/07/20 13:52 erythromycin base Allergy Severe WHIVES Verified 09/07/20 13:52 [ERYTHROMYCIN BASE] Penicillins [PENICILLINS] Allergy Severe I-HIVES Verified 09/07/20 13:52 Sulfa (Sulfonamide Allergy Severe WHIVES Verified 09/07/20 13:52 Antibiotics) [SULFA (SULFONAMIDE ANTIBIOTICS)] Home Medications:: Home Medications Medication Instructions Recorded Confirmed Type Albuterol Sulfate [Ventolin HFA 2 puffs IH Q6HP PRN #1 inh 06/03/18 11/05/20 Rx Inhaler] escitalopram oxalate 20 mg tablet 20 mg PO HS tab 09/07/20 11/05/20 History bisoproloL fumarate [Bisoprolol 10 mg PO DAILY 11/05/20 11/05/20 History 10mg Tablet] lisinopriL [Lisinopril] 10 mg PO DAILY 11/05/20 11/05/20 History Height: 1.6 m Weight: 85.332 kg Laboratory Results:: Laboratory Results - last 24 hr 11/05/20 13:35: WBC 17.6 H, RBC 4.80, Hgb 14.5, Hct 43.4, MCV 90.3, MCH 30.2, MCHC 33.4, RDW 13.8, Plt Count 309, MPV 7.2 L, Neut % (Auto) 91.7 H, Lymph % (Auto) 5.3 L, [place] % (Auto) 0.8 L, Eos % (Auto) 1.5, Baso % (Auto) 0.7, Neut # (Auto) 16.1 H, Lymph # (Auto) 0.9, [place] # (Auto) 0.1, Eos # (Auto) 0.3, Baso # (Auto) 0.1, Total Counted 100, Neutrophils % (Manual) 94 H, Lymphocytes % (Manual) 4 L, Monocytes % (Manual) 1 L, Eosinophils % (Manual) 1, Platelet Estimate Normal, Hypochromasia 1+ 11/05/20 13:35: Sodium 142, Potassium 4.0, Chloride 104, Carbon Dioxide 29, Anion Gap 13.0, BUN 12, Creatinine 0.90, Estimated Creat Clear 97, Estimated GFR 65, Est GFR ( Amer) 79, Glucose 118 H, Calcium 9.2, Total Bilirubin 0.7, AST 33, ALT 20, Alkaline Phosphatase 134 H, Total Protein 7.5, Albumin 4.1, Globulin 3.4 H, Albumin/Globulin Ratio 1.2 11/05/20 13:46: Urine Color Yellow, Urine Appearance Clear, Urine pH 6.0, Ur Specific [place] 1.010, Urine Protein Trace, Urine Glucose (UA) Negative, Urine Ketones Negative, Urine Blood 2+, Urine Nitrate Negative, Urine Bilirubin Negative, Urine Urobilinogen 0.2, Ur Leukocyte Esterase 1+ A, Urine RBC 10-20, Urine WBC 5-10, Ur Squamous Epith Cells None, Urine Bacteria Trace 11/05/20 13:46: Urine HCG, Qual Negative 11/05/20 13:46: Urine Opiates Screen Positive H, Urine Methadone Screen Negative, Ur Barbituates Screen Negative, Ur Phencyclidine Scrn Negative, Ur Amphetamines Screen Negative, U Benzodiazepines Scrn Negative, Urine Cocaine Screen Negative, U Marijuana (THC) Screen Negative 11/05/20 17:00: SARS-CoV-2 (PCR) Not detected, Influenza A Untype (PCR) Not detected, Influenza Type B (PCR) Not detected 11/05/20 17:31: Lactate 2.3 H Medical History: Reports:: Anxiety, Arrhythmia, Depression, Gastroesophageal Reflux Disease(GERD), Hypertension, Kidney Stones Denies:: Cancer, Coronary Artery Disease, Diabetes Mellitus Type 1, Diabetes Mellitus Type 2, MRSA Assessment and Plan - Assessment and plan all Dx Assessment and Plan for all problems:: Age: 55 yo Serum creatinine: 0.9 mg/dL Height: 63.0 Inches Weight (kg): 85.33 Assessment: IBW (kg): 52.40 Dosing wt(kg): 85.33 Estimated Creatinine clearance (ml/min): 59.1 CRCL method: Cockcroft and Gault using ibw(default). Drug selected: Vancomycin Loading dose (mg): 0 Vd (liters): 68.3 (factor used: 0.8 L/kg) Mp (hr-1): 0.053 Half life (hrs): 13.08 Recommended dose: 1500 mg Interval: 18 hrs Infusion time (hrs): 2.0 Predicted peak (mcg/mL): 33.9 Predicted trough (mcg/mL): 14.52 Total body weight is being used for vancomycin dosing. Recommendations: Give Vancomycin 1500 mg q 18 hrs with an expected Cpeak of 33.9 mcg/ml and an expected Ctrough of 14.52 mcg/ml ----Vanc
--- NOTE | 2020-11-05 19:37 | PC.NURSE ---
she is aox4 since arriving to floor. vss, no needs voiced.
[2020-11-05 21:32] LABS: Reflex Lactic Add Lactic Reflex
[2020-11-05 22:12] LABS: Lactic Acid Follow Up (RFLX 1) 2.3 mmol/L (0.7-2.1)
[2020-11-05 23:49] LABS: Reflex Lactic (2 hrs) Add Lactic Reflex
[2020-11-06] VITALS (7 sets, daily range): BP systolic 101–140; BP diastolic 62–67; PULSE 50–65; RESP 16–18; TEMP 36.4–36.7; O2SAT 96–99; BMI 34.6
[2020-11-06 00:23] LABS: Lactic Acid Follow up (RFLX 2) 2.1 mmol/L (0.7-2.1)
[2020-11-06 06:03] LABS: Basophils # 0.1 K/mm3 (0-0.2); Basophils % 0.5 % (0.1-2.0); Eosinophils # 0.6 K/mm3 (0.0-0.4); Eosinophils % 3.3 % (0.1-12.0); Hematocrit 35.4 % (37.0-47.0); Lymphocytes # 1.5 K/mm3 (0.7-4.5); Mean Corpuscular Hemoglobin 31.2 pg (27.0-31.2); Mean Corpuscular Volume 91.7 fl (81-99); Mean Platelet Volume 7.2 fl (7.4-10.4); Monocytes # 0.6 K/mm3 (0.1-1.0); Monocytes % 2.9 % (1.7-9.3); Neutrophils # 16.1 K/mm3 (1.8-7.8); Neutrophils % 85.4 % (37.0-80.0); Platelet Count 244 K/mm3 (142-424); Red Blood Count 3.87 M/mm3 (4.20-5.40); Red Cell Distribution Width 13.9 % (11.5-17.5); White Blood Count 18.9 K/mm3 (4.8-10.8)
[2020-11-06 06:15] LABS: Hemoglobin 12.1 g/dL (12.2-16.2); MANUAL DIFFERENTIAL MANUAL DIFFERENTIAL (MANUAL DIFF)
[2020-11-06 06:22] LABS: Anion Gap 11.4 mEq/L (5-15); Blood Urea Nitrogen 20 mg/dl (7-17); Carbon Dioxide 30 mmol/L (22.0-30.0); Chloride 103 mmol/L (98-107); Creatinine Clearance Estimated 90 mL/min (50-200); Estimated Glomerular Filt Rate 58 ml/min (>60); GFR (African American) 70 ML/MIN (>60); Glucose 98 mg/dl (74-100); Potassium 4.4 mmoL/L (3.5-5.1); Sodium 140 mmol/L (136-145)
[2020-11-06 06:35] LABS: Calcium 8.2 mg/dl (8.4-10.2)
[2020-11-06 07:03] LABS: Eosinophils % 2 % (0-3); Lymphocytes % 2 % (10-50); Monocytes % 1 % (2-9); Neutrophils % 89 % (42-76); Total Cells Counted 100
[2020-11-06 07:04] LABS: Platelet Estimate Normal; RBC Morphology Normal
--- NOTE | 2020-11-06 08:04 | HMH.HP ---
*Admission Date: 11/05/20 *Chief complaint: Abdominal pain/fever *History of present illness: 55-year-old white female with known kidney stones, recent urinary tract infection, treated by her primary care physician with Cipro and then Macrobid, initially seemed to help but was afflicted with significant abdominal pain late yesterday and came to the emergency department where she was found to have fever to 102, leukocytosis and met sepsis criteria CT scan showed 13 mm stone that did not have evidence of hydronephrosis but obviously could have some pain/temporary obstruction symptoms. She was admitted to hospital for IV fluids and antibiotics. Urology was consulted by phone who recommended ongoing treatment and follow-up on Sunday as an outpatient if patient was able to be discharged home. [facility] History I have reviewed the patient's past medical history: Yes Medical History: Reports:: Anxiety, Arrhythmia, Depression, Gastroesophageal Reflux Disease(GERD), Hypertension, Kidney Stones Denies:: Cancer, Coronary Artery Disease, Diabetes Mellitus Type 1, Diabetes Mellitus Type 2, MRSA *Have you ever received a pneumonia vaccine?: No *Have you received a flu vaccine this season?: Yes Other Medical History: Reports: Hypothyroidism, Thyroid Disease, Other Laterality Cases: Left: Other Other Surgeries: Yes: Cholecystectomy, Colonoscopy, Other Amputation: No Fractures: No - *Social History Last grade of school completed: Some college Smoking Status: Never smoker Alcohol Intake: never Alcohol Intake Frequency:: holidays/special occasions only Substance Use Type: denies use *Occupational Status:: employed Housing: house Household Members: spouse *Travel in the last 8 weeks: None - Psychiatric History Pschychiatric History:: Reports:: Anxiety, Depression Family Hx:: Cancer, Hypertension, Thyroid Disorder Review of Systems - Review of Systems Review of systems:: pertinent systems reviewed and negative unless documented below Meds Home Medications Medication Instructions Recorded Confirmed Type Albuterol Sulfate [Ventolin HFA 2 puffs IH Q6HP PRN #1 inh 06/03/18 11/05/20 Rx Inhaler] escitalopram oxalate 20 mg tablet 20 mg PO HS tab 09/07/20 11/05/20 History bisoproloL fumarate [Bisoprolol 10 mg PO DAILY 11/05/20 11/05/20 History 10mg Tablet] lisinopriL [Lisinopril] 10 mg PO DAILY 11/05/20 11/05/20 History Allergies Allergy/AdvReac Type Severity Reaction Status Date / Time codeine [CODEINE] Allergy Severe WHIVES Verified 09/07/20 13:52 erythromycin base Allergy Severe WHIVES Verified 09/07/20 13:52 [ERYTHROMYCIN BASE] Penicillins [PENICILLINS] Allergy Severe I-HIVES Verified 09/07/20 13:52 Sulfa (Sulfonamide Allergy Severe WHIVES Verified 09/07/20 13:52 Antibiotics) [SULFA (SULFONAMIDE ANTIBIOTICS)] Exam Vital signs and Labs for Last 24 Hours: Temp Pulse Resp BP Pulse Ox 98.0 F 52 L 18 101/64 L 97 11/06/20 03:51 11/06/20 04:00 11/06/20 03:51 11/06/20 03:51 11/06/20 03:51 Laboratory Results - last 24 hr 11/05/20 13:35: WBC 17.6 H, RBC 4.80, Hgb 14.5, Hct 43.4, MCV 90.3, MCH 30.2, MCHC 33.4, RDW 13.8, Plt Count 309, MPV 7.2 L, Neut % (Auto) 91.7 H, Lymph % (Auto) 5.3 L, [place] % (Auto) 0.8 L, Eos % (Auto) 1.5, Baso % (Auto) 0.7, Neut # (Auto) 16.1 H, Lymph # (Auto) 0.9, [place] # (Auto) 0.1, Eos # (Auto) 0.3, Baso # (Auto) 0.1, Total Counted 100, Neutrophils % (Manual) 94 H, Lymphocytes % (Manual) 4 L, Monocytes % (Manual) 1 L, Eosinophils % (Manual) 1, Platelet Estimate Normal, Hypochromasia 1+ 11/05/20 13:35: Sodium 142, Potassium 4.0, Chloride 104, Carbon Dioxide 29, Anion Gap 13.0, BUN 12, Creatinine 0.90, Estimated Creat Clear 97, Estimated GFR 65, Est GFR ( Amer) 79, Glucose 118 H, Calcium 9.2, Total Bilirubin 0.7, AST 33, ALT 20, Alkaline Phosphatase 134 H, Total Protein 7.5, Albumin 4.1, Globulin 3.4 H, Albumin/Globulin Ratio 1.2 07/30/21 13:46: Urine Color Yellow, Urine Appear
--- NOTE | 2020-11-06 16:15 | HMH.PHAINT ---
MEDICATION RECONCILIATION COMPLETED ON PATIENT USING EXTERNAL FILL HISTORY FROM PHARMACY. -OLGA CRUZ, HÉCTORD
--- NOTE | 2020-11-06 18:39 | PC.NURSE ---
NO ACUTE CHANGES, SHE IS AOX4, DOES NOT REQUIRE O2 SUPPORT, SHE HAS TOLERATED DIET WELL, AMBULATES TO BATHROOM, HAS NOT C/O PAIN THUS FAR, DENIES N/V/D.
[2020-11-07] VITALS: BP 120/70; PULSE 62; PULSE 64; TEMP 36.6; O2SAT 94
[2020-11-07 04:00] VITALS: BP 116/70; PULSE 51; PULSE 64; RESP 17; TEMP 35.5; O2SAT 96
[2020-11-07 06:53] VITALS: BMI 34.6
[2020-11-07 06:55] LABS: Basophils # 0.1 K/mm3 (0-0.2); Basophils % 0.8 % (0.1-2.0); Eosinophils # 0.9 K/mm3 (0.0-0.4); Eosinophils % 10.1 % (0.1-12.0); Hematocrit 36.1 % (37.0-47.0); Hemoglobin 12.2 g/dL (12.2-16.2); Lymphocytes # 2.1 K/mm3 (0.7-4.5); Lymphocytes % 22.6 % (10-50); Mean Corpuscular HGB Conc 33.7 g/dL (31.8-35.4); Mean Corpuscular Hemoglobin 30.9 pg (27.0-31.2); Mean Corpuscular Volume 91.8 fl (81-99); Mean Platelet Volume 7.3 fl (7.4-10.4); Monocytes # 0.4 K/mm3 (0.1-1.0); Monocytes % 3.8 % (1.7-9.3); Neutrophils # 5.7 K/mm3 (1.8-7.8); Neutrophils % 62.6 % (37.0-80.0); Platelet Count 250 K/mm3 (142-424); Red Blood Count 3.94 M/mm3 (4.20-5.40); Red Cell Distribution Width 13.8 % (11.5-17.5); White Blood Count 9.1 K/mm3 (4.8-10.8)
[2020-11-07 07:04] LABS: Chloride 104 mmol/L (98-107); Potassium 4.6 mmoL/L (3.5-5.1); Sodium 139 mmol/L (136-145)
[2020-11-07 07:07] LABS: Blood Urea Nitrogen 13 mg/dl (7-17); Creatinine Clearance Estimated 113 mL/min (50-200); Estimated Glomerular Filt Rate 75 ml/min (>60); GFR (African American) 90 ML/MIN (>60)
[2020-11-07 07:08] LABS: Anion Gap 8.6 mEq/L (5-15); Calcium 8.8 mg/dl (8.4-10.2); Carbon Dioxide 31 mmol/L (22.0-30.0); Glucose 102 mg/dl (74-100)
--- NOTE | 2020-11-07 08:04 | HMH.DCSUM ---
General - General Admission date:: 11/05/20 Discharge date: 11/07/20 HPI HPI: 55-year-old white female with known kidney stones, recent urinary tract infection, treated by her primary care physician with Cipro and then Macrobid, initially seemed to help but was afflicted with significant abdominal pain late yesterday and came to the emergency department where she was found to have fever to 102, leukocytosis and met sepsis criteria CT scan showed 13 mm stone that did not have evidence of hydronephrosis but obviously could have some pain/temporary obstruction symptoms. She was admitted to hospital for IV fluids and antibiotics. Urology was consulted by phone who recommended ongoing treatment and follow-up on Sunday as an outpatient if patient was able to be discharged home. Hospital Course Hospital Course: Patient was admitted, IV antibiotics were administered, fluids were administered. Sepsis parameters resolved very nicely, fever curve remained normal. Leukocytosis resolved this morning. Urine culture is pending. Patient feels much better and wishes to go home. Will prescribe Cipro for today and tomorrow, she will see urology tomorrow. She has pain medication and nausea medicine at home in case stone becomes a problem again. She will then follow-up with her regular physician over the next couple of weeks. Objective Vital signs: Temp Pulse Resp BP Pulse Ox 96 F L 64 17 116/70 96 11/07/20 04:00 11/07/20 04:00 11/07/20 04:00 11/07/20 04:00 11/07/20 04:00 no acute distress - *Routine HEENT Exam Head: Present: normocephalic Eye: Present: EOMI, PERRL ENT: Present: mucous membranes moist - *Routine Neck Exam Present: supple - *Routine Respiratory Exam Present: CTA bilaterally - *Routine Cardiovascular Exam Present: RRR - *Routine Abdominal Exam Present: soft, normoactive bowel sounds. Absent: tenderness - *Routine Extremities Exam Absent: cyanosis, clubbing, edema - *Routine Skin Exam Present: warm. Absent: rash - Detailed Eye Exam Eyelids: Bilateral normal inspection Results Labs on day of discharge: Labs from last 24 hours 11/07/20 11/07/20 06:35 06:35 WBC 9.1 D RBC 3.94 L Hgb 12.2 Hct 36.1 L MCV 91.8 MCH 30.9 MCHC 33.7 RDW 13.8 Plt Count 250 MPV 7.3 L Neut % (Auto) 62.6 Lymph % (Auto) 22.6 [place] % (Auto) 3.8 Eos % (Auto) 10.1 Baso % (Auto) 0.8 Neut # (Auto) 5.7 Lymph # (Auto) 2.1 [place] # (Auto) 0.4 Eos # (Auto) 0.9 H Baso # (Auto) 0.1 Sodium 139 Potassium 4.6 Chloride 104 Carbon Dioxide 31 H Anion Gap 8.6 BUN 13 D Creatinine 0.80 Estimated Creat Clear 113 Estimated GFR 75 Est GFR ( Amer) 90 D Glucose 102 H Calcium 8.8 Preliminary micro results at discharge 11/05/20 13:46 Urine Culture - Preliminary Urine,Catheterized DS: Diagnosis - Discharge Diagnosis (1) Sepsis Status: Resolved (2) Fever Status: Resolved (3) Leukocytosis Status: Resolved (4) UTI (urinary tract infection) Status: Acute Discharge Plan - Patient Discharge Instructions ACTIVITY: Continue current activity DIET: continue same diet Patient Instructions: DI for Urinary Tract Infection (UTI), DI for Fever (Symptom) -- Adult, DI for Sepsis -- Adult, DI for Leukocytosis - Follow up Plan Follow up with: Eris Godoy MD [Staff Physician] - 11/08/20 Disposition: Home, Self-Care Condition at discharge:: Improved Home Medications: Home Medications Medication Instructions Recorded Confirmed Type escitalopram oxalate 20 mg tablet 20 mg PO HS tab 09/07/20 11/05/20 History lisinopriL [Lisinopril] 10 mg PO DAILY 11/05/20 11/05/20 History Hydrocodone/Acetaminophen 1 tab PO Q6HP PRN 11/06/20 11/06/20 History [Hydrocodone-Acetamin 5-325 mg] Nitrofurantoin Monohyd/M-Cryst 100 mg PO BID 11/06/20 11/06/20 History [Nitrofurantoin [place]-Mcr 100 mg] bisoprolo
[2020-11-07 16:57] VITALS: PULSE 60
== END 2020-11-07 08:50 | disposition home or self-care (01) ==
LOC: ER 17:26 → 2ND 20:37
PROVIDERS: Admitting Provider Internal Medicine Adolescent Medicine; Emergency Provider Family Medicine; PCP Family Medicine; Visit Provider Internal Medicine Adolescent Medicine
DX: A41.9 Sepsis, unspecified organism (principal); N39.0 Urinary tract infection, site not specified; Z20.822 Contact with and (suspected) exposure to COVID-19; I10 Essential (primary) hypertension; F32.9 Major depressive disorder, single episode, unspecified; F41.9 Anxiety disorder, unspecified
CPT/HCPCS: 36415; 71045; 74176; 80048; 80053; 80305; 81001; 81025; 83605; 85007; 85025; 87040; 87077; 87086; 93005; 96365; 96375; 99285; G0378; J2405; J3370; U0003

== ENCOUNTER → 2020-11-10 09:56 | Outpatient (CLI) | payer OTHER, SELFPAY ==
[2020-11-10 09:58] LABS: MANUAL DIFFERENTIAL MANUAL DIFFERENTIAL (MANUAL DIFF)
[2020-11-10 10:18] LABS: Basophils # 0.2 K/mm3 (0-0.2); Basophils % 1.8 % (0.1-2.0); Eosinophils # 0.8 K/mm3 (0.0-0.4); Eosinophils % 9.1 % (0.1-12.0); Hematocrit 41.3 % (37.0-47.0); Hemoglobin 13.9 g/dL (12.2-16.2); Lymphocytes # 2.6 K/mm3 (0.7-4.5); Lymphocytes % 28.8 % (10-50); Mean Corpuscular HGB Conc 33.7 g/dL (31.8-35.4); Mean Corpuscular Hemoglobin 30.7 pg (27.0-31.2); Mean Corpuscular Volume 91.3 fl (81-99); Mean Platelet Volume 7.4 fl (7.4-10.4); Monocytes # 0.4 K/mm3 (0.1-1.0); Monocytes % 4.3 % (1.7-9.3); Neutrophils # 5.1 K/mm3 (1.8-7.8); Platelet Count 357 K/mm3 (142-424); Red Blood Count 4.53 M/mm3 (4.20-5.40); Red Cell Distribution Width 13.9 % (11.5-17.5); White Blood Count 9.1 K/mm3 (4.8-10.8)
[2020-11-10 11:00] LABS: Eosinophils % 6 % (0-3); Lymphocytes % 34 % (10-50); Monocytes % 7 % (2-9); Neutrophils % 53 % (42-76); Platelet Estimate Normal; RBC Morphology Normal; Total Cells Counted 100
[2020-11-10 11:11] LABS: Anion Gap 9.9 mEq/L (5-15); Blood Urea Nitrogen 14 mg/dl (7-17); Calcium 9.3 mg/dl (8.4-10.2); Carbon Dioxide 32 mmol/L (22.0-30.0); Chloride 100 mmol/L (98-107); Estimated Glomerular Filt Rate 87 ml/min (>60); GFR (African American) 106 ML/MIN (>60); Glucose 117 mg/dl (74-100); Potassium 4.9 mmoL/L (3.5-5.1); Sodium 137 mmol/L (136-145)
== END ==
PROVIDERS: Visit Provider Urology
DX: Z01.812 Encounter for preprocedural laboratory examination (principal); Z11.52 Encounter for screening for COVID-19; N20.0 Calculus of kidney
CPT/HCPCS: 36415; 80048; 85007; 85014; 85018; 85048; 85049; U0003

== ENCOUNTER → 2020-11-16 10:19 | Outpatient (CLI) | payer OTHER, SELFPAY ==
--- NOTE | 2020-11-16 10:23 | XR_ITS ---
PROCEDURE: XR KUB CLINICAL INDICATION: kidney stone COMPARISON: CR XR KUB from 11/03/[address] ABDOMEN PELVIS WO CON from 11/05/2020 FINDINGS: Bilateral ureteral stents are in place in good position. Previously noted dominant stones at the UPJ on both sides have been fragmented now with multiple stone fragments in the collecting system of both kidneys in the lower poles. No obvious ureteral calculi. IMPRESSION: Status post bilateral UPJ stone fragmentation with numerous bilateral renal calculi bilateral ureteral stents in place with no obvious ureteral stone Dictated by: Beka Toussaint MD 11/16/2020 11:00 Beka Toussaint MD in [place] 11/16/2020 11:00
== END ==
PROVIDERS: PCP Family Medicine; Visit Provider Urology
DX: N20.0 Calculus of kidney (principal)
CPT/HCPCS: 74018

== ENCOUNTER → 2020-12-16 09:48 | Outpatient (CLI) | payer OTHER, SELFPAY ==
--- NOTE | 2020-12-16 09:53 | XR_ITS ---
PROCEDURE: XR KUB CLINICAL INDICATION: kidney stone COMPARISON: CT CT ABDOMEN PELVIS WO CON from 11/05/2020 CR XR KUB from 11/16/2020 FINDINGS: Bilateral nephrolithiasis. bilateral ureteral stents have been removed. No obvious ureteral calculi. IMPRESSION: No change bilateral nephrolithiasis. Dictated by: Beka Toussaint MD 12/16/2020 10:20 Beka Toussaint MD in [place] 12/16/2020 10:20
== END ==
PROVIDERS: PCP Family Medicine; Visit Provider Urology
DX: N20.0 Calculus of kidney (principal)
CPT/HCPCS: 74018

== ENCOUNTER → 2020-12-16 16:35 | Outpatient (CLI) | payer OTHER, SELFPAY ==
[2021-01-01 17:02] LABS: Specimen Type NOT PROVIDED
[2021-01-01 17:03] LABS: Ca oxalate dihydrate 60
== END ==
PROVIDERS: Visit Provider Urology
DX: N20.0 Calculus of kidney (principal)
CPT/HCPCS: 82370

== ENCOUNTER → 2021-02-21 09:45 | Outpatient (CLI) | payer OTHER, SELFPAY | PROVIDERS: PCP Family Medicine; Visit Provider Nurse Practitioner | DX: U07.1 COVID-19 (principal) | CPT/HCPCS: C9803; U0003; U0005 ==

== ENCOUNTER → 2021-03-07 13:01 | Outpatient (CLI) | payer OTHER, SELFPAY ==
--- NOTE | 2021-03-07 13:06 | XR_ITS ---
PROCEDURE: XR KUB CLINICAL INDICATION: kidney stones COMPARISON: CR XR KUB from 12/16/2020 FINDINGS: Bilateral nephrolithiasis. The stones X appear more numerous on the right and less numerous on the left compared to the previous study. No obvious ureteral calculi. There is mild sclerosis of the SI joints. IMPRESSION: Bilateral nephrolithiasis Dictated by: Beka Toussaint MD 03/07/2021 16:15 Beka Toussaint MD in [place] 03/07/2021 16:15
== END ==
PROVIDERS: PCP Family Medicine; Visit Provider Urology
DX: N20.0 Calculus of kidney (principal)
CPT/HCPCS: 74018

== ENCOUNTER → 2021-05-09 10:11 | Outpatient (CLI) | payer OTHER, SELFPAY ==
[2021-05-10 07:02] LABS: Covid-19 Nasal PCR Sendout Lex NOT DETECTED
== END ==
PROVIDERS: PCP Family Medicine; Visit Provider Nurse Practitioner
DX: Z20.822 Contact with and (suspected) exposure to COVID-19 (principal)
CPT/HCPCS: C9803; U0004; U0005

== ENCOUNTER → 2021-07-15 15:43 | Outpatient (CLI) | payer BC, SELFPAY | PROVIDERS: PCP Internal Medicine; Visit Provider Internal Medicine | DX: I10 Essential (primary) hypertension; R06.83 Snoring; G47.00 Insomnia, unspecified; G47.33 Obstructive sleep apnea (adult) (pediatric) | CPT/HCPCS: G0399 ==

== ENCOUNTER → 2021-09-07 16:50 | Outpatient (CLI) | payer BC, SELFPAY ==
[2021-09-07 17:48] LABS: Chloride 102 mmol/L (98-107)
[2021-09-07 17:49] LABS: Potassium 3.3 mmoL/L (3.5-5.1); Sodium 138 mmol/L (136-145)
[2021-09-07 17:51] LABS: Alanine Aminotransferase 23 U/L (12-78); Aspartate Amino Transferase 30 U/L (14-36); Blood Urea Nitrogen 10 mg/dl (7-17); Estimated Glomerular Filt Rate 87 ml/min (>60); GFR (African American) 106 ML/MIN (>60)
[2021-09-07 17:52] LABS: Albumin Level 4.1 g/dl (3.5-5.0); Albumin/Globulin Ratio 1.5 (1.1-1.8); Alkaline Phosphatase 89 U/L (38-126); Anion Gap 11.3 mEq/L (5-15); Bilirubin,Total 0.4 mg/dl (0.2-1.3); Calcium 9.4 mg/dl (8.4-10.2); Carbon Dioxide 28 mmol/L (22.0-30.0); Cholesterol 179 mg/dl (140-200); Globulin 2.8 g/dL (1.3-3.2); Glucose 97 mg/dl (74-100); HDL Cholesterol 60 mg/dl (40-60); Total Protein,Serum 6.9 g/dl (6.3-8.2); Triglycerides 85 mg/dl (30-150); VLDL Cholesterol 17 mg/dL (0-40)
[2021-09-07 18:03] LABS: Direct LDL Cholesterol 88.72 mg/dL (100-129)
[2021-09-07 18:23] LABS: Thyroid Stimulating Hormone 3.18 uIU/mL (0.465-4.68)
== END ==
PROVIDERS: PCP Internal Medicine; Visit Provider Internal Medicine
DX: I10 Essential (primary) hypertension (principal); E03.9 Hypothyroidism, unspecified; E78.5 Hyperlipidemia, unspecified; E66.8 Other obesity; G47.9 Sleep disorder, unspecified; R94.6 Abnormal results of thyroid function studies
CPT/HCPCS: 80053; 80061; 84439; 84443

== ENCOUNTER → 2021-09-12 12:13 | Outpatient (CLI) | payer BC, SELFPAY ==
--- NOTE | 2021-09-12 12:17 | XR_ITS ---
FINAL REPORT CLINICAL HISTORY: kidney stone bilat COMPARISON: March 07, 2021 FINDINGS: A single view of the abdomen was obtained. There is a nonobstructive bowel gas pattern. There are no abnormally dilated loops of small bowel. There is overall improved right nephrolithiasis. There is a 12 mm radiodensity in the region of the medial right kidney or right renal pelvis which is worrisome for a stone. There are 3 renal stones in the left kidney measuring up to 7 mm, larger in comparison to the prior. Stable presumed phleboliths in the right pelvis. IMPRESSION: Bilateral nephrolithiasis, overall improved on the right. Reviewed, Interpreted and Dictated by Malik Still III, MD Transcribed by Angelia Rodriguez Authenticated and [facility]
== END ==
PROVIDERS: PCP Internal Medicine; Visit Provider Urology
DX: N20.0 Calculus of kidney (principal)
CPT/HCPCS: 74018

== ENCOUNTER → 2022-09-21 09:39 | Outpatient (CLI) | payer OTHER, SELFPAY ==
[2022-09-21 10:17] LABS: Basophils # 0.1 K/mm3 (0-0.2); Basophils % 0.9 % (0.1-2.0); Eosinophils # 0.2 K/mm3 (0.0-0.4); Eosinophils % 3.6 % (0.1-12.0); Hemoglobin 13.5 g/dL (12.2-16.2); Lymphocytes # 1.8 K/mm3 (0.7-4.5); Lymphocytes % 29.2 % (10-50); Mean Corpuscular HGB Conc 32.2 g/dL (31.8-35.4); Mean Corpuscular Hemoglobin 29.8 pg (27.0-31.2); Mean Corpuscular Volume 92.6 fl (81-99); Mean Platelet Volume 7.2 fl (7.4-10.4); Monocytes # 0.4 K/mm3 (0.1-1.0); Monocytes % 6.4 % (1.7-9.3); Neutrophils # 3.7 K/mm3 (1.8-7.8); Neutrophils % 59.9 % (37.0-80.0); Platelet Count 263 K/mm3 (142-424); Red Blood Count 4.53 M/mm3 (4.20-5.40); Red Cell Distribution Width 13.3 % (11.5-17.5); White Blood Count 6.2 K/mm3 (4.8-10.8)
[2022-09-21 10:46] LABS: Chloride 101 mmol/L (98-107); Potassium 4.1 mmoL/L (3.5-5.1); Sodium 140 mmol/L (136-145)
[2022-09-21 10:48] LABS: Bilirubin,Unconjugated 0.8 mg/dL (0.0-1.1); Blood Urea Nitrogen 12 mg/dl (7-17); Estimated Glomerular Filt Rate 74 ml/min (>60); GFR (African American) 90 ML/MIN (>60)
[2022-09-21 10:49] LABS: Alanine Aminotransferase 20 U/L (12-78); Albumin Level 3.9 g/dl (3.5-5.0); Alkaline Phosphatase 95 U/L (38-126); Anion Gap 13.1 mEq/L (5-15); Aspartate Amino Transferase 27 U/L (14-36); Bilirubin,Indirect 0.7 mg/dL (0.0-0.9); Bilirubin,Total 0.7 mg/dl (0.2-1.3); Calcium 8.7 mg/dl (8.4-10.2); Carbon Dioxide 30 mmol/L (22.0-30.0); Chol/HDL Ratio 3.1 (1-3.5); Cholesterol 192 mg/dl (140-200); Glucose 100 mg/dl (74-100); HDL Cholesterol 61 mg/dl (40-60); Total Protein,Serum 6.7 g/dl (6.3-8.2); Triglycerides 107 mg/dl (30-150); VLDL Cholesterol 21 mg/dL (0-40)
[2022-09-21 11:01] LABS: Direct LDL Cholesterol 88.72 mg/dL (100-129)
[2022-09-21 11:06] LABS: Free T4 (Free Thyroxine) 0.85 ng/dl (0.78-2.19)
[2022-09-21 11:20] LABS: Thyroid Stimulating Hormone 3.73 uIU/mL (0.465-4.68)
== END ==
LOC: LAB 09:40
PROVIDERS: PCP Internal Medicine; Visit Provider Physician Assistant
DX: I10 Essential (primary) hypertension (principal); I51.9 Heart disease, unspecified
CPT/HCPCS: 36415; 80048; 80061; 80076; 83735; 84439; 84443; 85025

== ENCOUNTER 2023-06-06 09:29 | Outpatient (CLI) | payer BC, SELFPAY ==
[2023-06-06 09:47] LABS: Basophils # 0.1 K/mm3 (0-0.2); Basophils % 0.6 % (0.1-2.0); Eosinophils # 0.4 K/mm3 (0.0-0.4); Eosinophils % 3.3 % (0.1-12.0); Hematocrit 41.3 % (37.0-47.0); Hemoglobin 14.6 g/dL (12.2-16.2); Lymphocytes # 2.9 K/mm3 (0.7-4.5); Lymphocytes % 25.1 % (10-50); Mean Corpuscular HGB Conc 35.4 g/dL (31.8-35.4); Mean Corpuscular Hemoglobin 33.7 pg (27.0-31.2); Mean Corpuscular Volume 95.1 fl (81-99); Mean Platelet Volume 7.5 fl (7.4-10.4); Monocytes # 0.6 K/mm3 (0.1-1.0); Monocytes % 4.9 % (1.7-9.3); Neutrophils # 7.6 K/mm3 (1.8-7.8); Neutrophils % 66.2 % (37.0-80.0); Platelet Count 329 K/mm3 (142-424); Red Blood Count 4.34 M/mm3 (4.20-5.40); Red Cell Distribution Width 13.8 % (11.5-17.5); White Blood Count 11.4 K/mm3 (4.8-10.8)
[2023-06-06 10:08] LABS: Chloride 102 mmol/L (98-107)
[2023-06-06 10:09] LABS: Potassium 3.9 mmoL/L (3.5-5.1); Sodium 137 mmol/L (136-145)
[2023-06-06 10:11] LABS: Alanine Aminotransferase 27 U/L (12-78); Alkaline Phosphatase 97 U/L (38-126); Anion Gap 8.9 mEq/L (5-15); Aspartate Amino Transferase 32 U/L (14-36); Bilirubin,Direct 0.1 mg/dl (0.0-0.4); Bilirubin,Indirect 0.6 mg/dL (0.0-0.9); Bilirubin,Total 0.7 mg/dl (0.2-1.3); Bilirubin,Unconjugated 0.5 mg/dL (0.0-1.1); Blood Urea Nitrogen 18 mg/dl (7-17); Carbon Dioxide 30 mmol/L (22.0-30.0); Cholesterol 207 mg/dl (140-200); Estimated Glomerular Filt Rate 65 ml/min (>60); GFR (African American) 78 ML/MIN (>60); Triglycerides 107 mg/dl (30-150); VLDL Cholesterol 21 mg/dL (0-40)
[2023-06-06 10:12] LABS: Albumin Level 4.1 g/dl (3.5-5.0); Calcium 9.4 mg/dl (8.4-10.2); Glucose 110 mg/dl (74-100); HDL Cholesterol 52 mg/dl (40-60); Total Protein,Serum 7.1 g/dl (6.3-8.2)
[2023-06-06 10:23] LABS: Direct LDL Cholesterol 102.59 mg/dL (100-129)
[2023-06-06 10:26] LABS: Free T4 (Free Thyroxine) 0.77 ng/dl (0.78-2.19)
[2023-06-06 10:41] LABS: Thyroid Stimulating Hormone 3.88 uIU/mL (0.465-4.68)
== END 2023-06-06 23:59 ==
LOC: LAB 09:30
PROVIDERS: PCP Internal Medicine; Visit Provider Nurse Practitioner Family
DX: I11.9 Hypertensive heart disease without heart failure (principal); K21.9 Gastro-esophageal reflux disease without esophagitis
CPT/HCPCS: 36415; 80048; 80061; 80076; 84439; 84443; 85025

== ENCOUNTER 2023-06-08 17:44 | Outpatient (CLI) | payer BC, SELFPAY | END 2023-06-08 23:59 | LOC: LAB.DROPOF 17:45 | PROVIDERS: PCP Internal Medicine; Visit Provider Internal Medicine | DX: N39.0 Urinary tract infection, site not specified (principal); B95.1 Streptococcus, group B, as the cause of diseases classified elsewhere; B96.89 Other specified bacterial agents as the cause of diseases classified elsewhere | CPT/HCPCS: 87086 ==

== ENCOUNTER 2023-06-08 22:05 | Emergency (ER) | payer BC, SELFPAY ==
[2023-06-08 22:06] VITALS: BP 119/63; PULSE 63; RESP 18; TEMP 36.9; O2SAT 97; BMI 34.5
--- NOTE | 2023-06-08 22:26 | ED_ITS ---
Discharge Plan Disposition Patient Disposition: Home, Self-Care Prescriptions Prescriptions: New ondansetron 4 mg tablet,disintegrating 4 mg PO Q6H PRN (Reason: nausea and vomiting) Qty: 10 0RF No Action lisinopril-hydrochlorothiazide 10-12.5 mg tablet 1 tab PO DAILY Qty: 90 3RF bisoprolol fumarate 10 mg tablet See Rx Instructions .ROUTE .COMPLEX Qty: 90 3RF Dose Instruction: TAKE 1 TABLET BY MOUTH DAILY Rx Instructions: TAKE 1 TABLET BY MOUTH DAILY escitalopram oxalate [Lexapro] 20 mg tablet 20 mg PO HS hydrocodone-acetaminophen 1 EACH tablet 1 tab PO Q6HP PRN (Reason: Moderate Pain) Referrals Follow up/Referrals: Tristen Valenzuela MD [Primary Care Provider] - See instructions Activity Restrictions/Add. Instructions Additional Instructions/Restrictions: Call your family doctor to establish care for this visit to the emergency department and schedule follow-up within 48 hours to ensure improvement. If you have any worsening of your condition or any other concerning signs or symptoms, return to the emergency department or your primary care doctor for further evaluation. Discontinue taking Phenergan you can take Zofran for nausea. Clinical Impressions Clinical Impression: Dystonic drug reaction Discharge ED Provider: Vince Saab General Adult HPI General Chief complaint: Allergic Reaction Stated complaint: allergic reaction to new medicine for UTI Time Seen by Provider: 06/08/23 22:15 Mode of Arrival: Ambulatory Source of Information: Patient Limitations: No Limitations Description of Symptoms (Recalled from ER Triage Doc. by RN): Pt dx with UTI today, given Cipro and Phenergan wfich she took at 1600 and feels she is having allergic reaction to it. Pt describes feeling of aggitation, restless leg and lower abd pain with nausea. History of Present Illness HPI narrative: 57-year-old female no relevant medical history presenting with restlessness and agitation. States that she was just diagnosed with a UTI today, started ciprofloxacin and Phenergan. Took these around 4 PM and around 7 PM after a nap she started feeling restless. States that she felt like I could climb up the wall, and has never had anything like 4. Has taken Phenergan in the past without similar symptoms. Has also taken ciprofloxacin in the past without similar symptoms. No hallucinations. States that she is not having any wheezing, tongue or mouth swelling, rash, nausea or vomiting, weakness, or any other concerns. Related Data Home Medications Medication Instructions Recorded Confirmed escitalopram oxalate 20 mg tablet 20 mg PO HS Depression 09/07/20 06/06/23 (Lexapro) hydrocodone 5 mg-acetaminophen 325 1 tab PO Q6HP PRN Moderate Pain 11/06/20 06/06/23 mg tablet Previous Rx's Medication Instructions Recorded bisoprolol fumarate 10 mg tablet See Rx Instructions .Route 06/06/23 .COMPLEX #90 tabs lisinopril 10 1 tab PO DAILY #90 tabs 06/06/23 mg-hydrochlorothiazide 12.5 mg tablet ondansetron 4 mg disintegrating 4 mg PO Q6H PRN nausea and 06/08/23 tablet vomiting #10 tabs Allergies Allergy/AdvReac Type Severity Reaction Status Date / Time codeine [CODEINE] Allergy Severe WHIVES Verified 06/06/23 08:43 erythromycin base Allergy Severe WHIVES Verified 06/06/23 08:43 [ERYTHROMYCIN BASE] Penicillins [PENICILLINS] Allergy Severe I-HIVES Verified 06/06/23 08:43 Sulfa (Sulfonamide Allergy Severe WHIVES Verified 06/06/23 08:43 Antibiotics) [SULFA (SULFONAMIDE ANTIBIOTICS)] [facility] Disclaimer: The information contained in this section may have been updated after the patient was seen, as this information can be updated by other users. 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 current occupational exposures/hazards: No caffeine: Yes ROS Obtained: Yes All systems reviewed & no additional complaints except as documented Physical Exam General General appearance: alert and in no apparent distress Head Head exam: atraumatic and normocephalic Eye Eye exam: Present normal appearance, PERRL and EOMI ENT ENT exam: Present mucous membranes moist Neck Neck exam: Present normal inspection, full ROM and trachea midline Respiratory Respiratory exam: Absent respiratory distress, wheezes, stridor, accessory muscle use or prolonged expiratory phase Cardiovascular Cardiovascular exam: Present normal rhythm Abdominal Exam Abdominal exam: Present soft; Absent distention, tenderness, guarding, rebound or rigidity Extremities Exam Extremities exam: Absent edema Neurological Exam Neurological exam: Present alert, oriented X3, CN II-XII intact and normal gait; Absent motor sensory deficit Skin Skin exam: Present warm and dry; Absent diaphoresis or erythema Medical Decision Making Medical Records Medical records reviewed: Yes I reviewed the patient's medical records. Hernan Inquiry Pt receiving controlled substance: No Hernan was queried for this patient: No Vital Signs: 06/08/23 22:06 06/08/23 22:30 Temperature 98.4 F Temperature Source Oral Pulse Rate 60 Pulse Rate [Left] 63 Respiratory Rate 18 Blood Pressure 129/81 Blood Pressure [Right Arm] 119/63 Blood Pressure Mean [Right Arm] 81 02 Sat by Pulse Oximetry 97 98 Oxygen Delivery Method Room Air Lab Data Lab Results 06/08/23 22:45: Urine Color Yellow, Urine Appearance Clear, Urine pH 6.0, Ur Specific [place] 1.025, Urine Protein Trace, Urine Glucose (UA) Negative, Urine Ketones Negative, Urine Blood 2+, Urine Nitrate Negative, Urine Bilirubin Negative, Urine Urobilinogen 0.2, Ur Leukocyte Esterase 1+ A, Urine RBC 5-10, Urine WBC 3-5, Ur Squamous Epith Cells Occasional, Urine Bacteria Trace Orders (Tests/Meds): ORDERS Category Date Time Status UA [Urinalysis and Microscopic] Stat Lab 06/08/23 22:45 Completed Medical Decision Narrative: 57-year-old female no relevant medical history presenting with restlessness and agitation. States that she was just diagnosed with a UTI today, started ciprofloxacin and Phenergan. Took these around 4 PM and around 7 PM after a nap she started feeling restless. States that she felt like I could climb up the wall, and has never had anything like 4. Has taken Phenergan in the past without similar symptoms. Has also taken ciprofloxacin in the past without similar symptoms. No hallucinations. States that she is not having any wheezing, tongue or mouth swelling, rash, nausea or vomiting, weakness, or any other concerns. History was obtained via conversation with patient and . On arrival, patient hemodynamically stable, alert, oriented x4, appropriate, GCS 15, moving all extremities spontaneously, pupils equal and reactive to light. Full physical exam performed and significant for well-appearing woman in no acute distress. Moving legs intermittently, but appropriate on my exam. Not responding to internal stimuli. No tongue or mouth swelling, no rash, no wheezing, normotensive, nontachycardic.. Differential includes adverse reaction to medication, among others. Patient was given nothing in the emergency department for symptomatic management and correction of underlying abnormalities. Patient took 50 mg of Benadryl at home just before arriving at the emergency department. Workup independently interpreted and significant for UA with blood, protein, leuk esterase and bacteria. On reevaluation, patient resting comfortably bed. Given patient presentation, workup, history, this most likely represents UTI with acute dystonic reaction to Phenergan. Because patient at baseline without signs or symptoms of clinical decompensation, deemed appropriate for discharge. Results were relayed to patient who voiced understanding and were agreeable to outpatient management and follow up. At the time of discharge the patient was hemodynamically stable, tolerating PO, and mobilizing appropriately. Critical Care Critical Care Time Critical Care Time: No
[2023-06-08 22:30] VITALS: BP 129/81; PULSE 60; O2SAT 98
--- NOTE | 2023-06-08 22:36 | PC.NURSE ---
in room talking with patient at this time.
[2023-06-08 22:55] LABS: Microscopic, Urine URINE MICROSCOPIC (MICROSCOPIC)
[2023-06-08 22:57] LABS: Appearance,Urine CLEAR (Clear); Bilirubin,Urine Negative (Negative); Blood, Urine 2+ (Negative); Color,Urine YELLOW (Yellow); Glucose,Urine (UA) Negative (Negative); Ketones,Urine Negative (Negative); Leukocyte Esterase,Urine 1+ (Negative); Nitrate,Urine Negative (Negative); Protein,Urine TRACE (Negative); Specific Gravity, Urine 1.025 (1.005-1.030); Urobilinogen,Urine 0.2 EU/dl (0.2)
[2023-06-08 23:21] LABS: Bacteria,Urine Trace /lpf; Squamous Epithelial Cell,Urine Occasional #/hpf (0-5)
[2023-06-08 23:40] VITALS: BP 129/81; PULSE 59; RESP 15; TEMP 36.8; O2SAT 98
== END 2023-06-08 23:45 | disposition home or self-care (01) ==
PROVIDERS: Emergency Provider Emergency Medicine; PCP Internal Medicine
DX: R10.30 Lower abdominal pain, unspecified (principal); G24.9 Dystonia, unspecified; R11.0 Nausea; R45.1 Restlessness and agitation; N39.0 Urinary tract infection, site not specified; T50.905A Adverse effect of unspecified drugs, medicaments and biological substances, initial encounter
CPT/HCPCS: 81001; 99283

== ENCOUNTER 2023-07-23 12:28 | Outpatient (CLI) | payer BC, SELFPAY | END 2023-07-23 23:59 | LOC: LAB.DROPOF 12:29 | PROVIDERS: PCP Internal Medicine; Visit Provider Internal Medicine | DX: N39.0 Urinary tract infection, site not specified (principal) | CPT/HCPCS: 87086 ==

== ENCOUNTER 2023-07-27 14:25 | Outpatient (CLI) | payer BC, SELFPAY ==
--- NOTE | 2023-07-27 14:27 | US_ITS ---
FINAL REPORT CLINICAL HISTORY: Recurrent urinary tract infections FINDINGS: RENAL ULTRASOUND Ultrasound images of the kidneys were obtained. The right kidney measures 10.6 cm in length. The left kidney measures 10.0 cm in length. There are multiple echogenic shadowing foci in both kidneys consistent with stones. There is no right hydronephrosis. There may be minimal left hydronephrosis. IMPRESSION: Bilateral renal stones with minimal left hydronephrosis. The possibility of a more distal obstructing stone cannot be excluded. CT abdomen and pelvis without contrast may be of value. Reviewed, Interpreted and Dictated by Billy Keyes MD Transcribed by Kina Hernández Authenticated and . [facility]
--- NOTE | 2023-07-27 14:27 | US_ITS ---
FINAL REPORT CLINICAL HISTORY: RECURRENT UTI FINDINGS: ULTRASOUND URINARY BLADDER Limited images of the urinary bladder were obtained including postvoid imaging. The bladder is normal in size and configuration. The prevoid bladder volume is 372.7. The postvoid bladder volume is 28.47. IMPRESSION: Minimal postvoid residual. Reviewed, Interpreted and Dictated by Billy Keyes MD Transcribed by Kina Hernández Authenticated and . [facility]
== END 2023-07-27 23:59 | disposition home or self-care (01) ==
LOC: RAD 14:25
PROVIDERS: PCP Internal Medicine; Visit Provider Internal Medicine
DX: N39.0 Urinary tract infection, site not specified (principal)
CPT/HCPCS: 76770; 76857

== ENCOUNTER 2023-08-14 10:05 | Outpatient (CLI) | payer BC, SELFPAY ==
--- NOTE | 2023-08-14 10:07 | CT_ITS ---
FINAL REPORT CLINICAL HISTORY: STONE STUDY COMPARISON: None, although a report is available from a prior CT dated 11/05/2020. FINDINGS: Axial CT images of the abdomen and pelvis were obtained without intravenous contrast. Coronal and sagittal reformatted images were also obtained.This study was performed with techniques to keep radiation doses as low as reasonably achievable (ALARA). Individualized dose reduction techniques using automated exposure control or adjustment of mA and/or kV according to the patient's size were employed. Abdomen:The lung bases are clear. There are multiple nonobstructing stones in the kidneys bilaterally, measuring up to 5 mm on the left side. On the right side, there is an 18 mm right renal pelvic stone, with surrounding urothelial thickening and inflammatory change. There are also multiple nonobstructing stones present in the right kidney. The liver, spleen and pancreas have an unremarkable, unenhanced appearance. No mass or adenopathy is seen. No inflammatory process is identified. Pelvis: Images of the pelvis reveal no evidence of ureteral dilation or ureteral stone.No mass or abnormal fluid collection is identified. Multiple colonic diverticula are present without evidence of acute diverticulitis. The appendix is normal in appearance. IMPRESSION: Large 18 mm right renal pelvic stone with urothelial thickening and inflammatory change. No hydronephrosis is identified. Multiple other bilateral nonobstructing renal stones. No mass or inflammatory process is otherwise identified. Reviewed, Interpreted and Dictated by Malik Still III, MD Transcribed by Bambi Stone Authenticated and [facility]
== END 2023-08-14 23:59 | disposition home or self-care (01) ==
LOC: RAD 10:05
PROVIDERS: PCP Internal Medicine; Visit Provider Internal Medicine
DX: N20.1 Calculus of ureter (principal)
CPT/HCPCS: 74176

== ENCOUNTER 2023-08-20 15:32 | Outpatient (CLI) | payer BC, SELFPAY ==
[2023-08-20 15:31] LABS: Microscopic, Urine URINE MICROSCOPIC (MICROSCOPIC)
[2023-08-20 15:52] LABS: Appearance,Urine SL CLOUDY (Clear); Bilirubin,Urine Negative (Negative); Blood, Urine 3+ (Negative); Color,Urine YELLOW (Yellow); Glucose,Urine (UA) Negative (Negative); Ketones,Urine Negative (Negative); Leukocyte Esterase,Urine TRACE (Negative); Nitrate,Urine Negative (Negative); PH,Urine 6.5 (5.0-8.5); Protein,Urine TRACE (Negative); Specific Gravity, Urine 1.025 (1.005-1.030); Urobilinogen,Urine 0.2 EU/dl (0.2)
[2023-08-20 16:17] LABS: Bacteria,Urine Trace /lpf; Squamous Epithelial Cell,Urine Occasional #/hpf (0-5)
== END 2023-08-20 23:59 | disposition home or self-care (01) ==
LOC: LAB.DROPOF 15:32
PROVIDERS: PCP Urology; Visit Provider Urology
DX: N39.0 Urinary tract infection, site not specified (principal); R31.9 Hematuria, unspecified; N20.0 Calculus of kidney
CPT/HCPCS: 81001; 87086

== ENCOUNTER 2023-09-26 10:39 | Outpatient (CLI) | payer BC, SELFPAY ==
--- NOTE | 2023-09-26 10:46 | CA_ITS ---
APPROVED REPORT EXAM: Comprehensive 2D, Doppler, and color-flow Echocardiogram Electronic Device Monitor: DO Kent, RVS Ht: 5 ft 3 in Wt: 190lbs BSA: 1.89 HR: 43 bpm BP: 109/67 mmHg Rhythm: Bradycardia Indications: Pre-op assessment, HTN Diastolic dysfunction, Smoker 2D Dimensions Left Atrium 4.03 cm LA Volume 71.30 mL LA Volume Index 36.80 mL/m2 (M/F) 16-34 M-Mode Dimensions RVDd 2.15 cm (0.9-2.6) LA Diam 4.41 cm (1.9-4.0) LVDd 4.90 cm (3.5-5.7) LVDs 3.07 cm (3.5-5.7) IVSd 1.08 cm (0.6-1.1) PWd 0.83 cm (0.6-1.1) EF (Teich) 67.20% EPSs 0.32 cm FS 37.30% EDV (Teich) 112.80 mL TAPSE 2.36 (<1.7) ESV (Teich) 37.00 mL LV Diastology E Decel Time 243 (160-240 msec) E/A Ratio 1.27 MED A' 9.70 cm/s LAT A' 8.30 cm/s Aortic Valve VIVIAN Index 1.05 cm2/m2 AoV Peak Jose. 159.0 (50-130 cm/s) AO Peak GR. 10.10 mmHg AO Mean GR. 5.00 (<5 mmHg) AO VTI 40.0 (18-25 cm) VIVIAN (VTI) 2.04 (2.5-4.5 cm2) Mitral Valve MV A Velocity 67.0 (40-130 cm/s) E/A Ratio 1.27 Pulmonary Valve PV Peak Velocity 76.0 (50-150 cm/s) CA End VMAX 114.0 cm/s Tricuspid Valve TR P. Velocity 227.00 cm/s RAP Estimate 10.00 mmHg RVSP 30.50 mmHg Left Ventricle The left ventricle is normal size. The left ventricular systolic function is normal. The left ventricular ejection fraction is within the normal range. Proximal septal thickening is noted. There is normal LV segmental wall motion. The left ventricular diastolic function is normal. LVEF is 55%. Right Ventricle The right ventricle is normal size. The right ventricular systolic function is normal. Atria Left atrium is mildly dilated. The right atrium is mildly dilated. There is no Doppler evidence of interatrial shunt. Aortic Valve Aortic valve is mildly thickened. There is no aortic valvular stenosis. No aortic regurgitation is present. Mitral Valve The mitral valve is normal in structure. No evidence of mitral valve stenosis. Trace mitral regurgitation. Tricuspid Valve The tricuspid valve leaflets are thin and pliable. Mild tricuspid regurgitation. RVSP is 20-25 mmHg. Pulmonic Valve The pulmonary valve is normal in structure. Mild pulmonic regurgitation. Great Vessels The aortic root is normal in size. The ascending aorta is normal in size. IVC is normal in size and collapses >50% with inspiration. Pericardium There is no pericardial effusion. Other Information Study Quality: Fair Conclusion Normal biventricular systolic function. Mild biatrial dilation. Mild TR. Electronically signed by : Makayla Marcus MD 09/29/2023 19:40:05
== END 2023-09-26 23:59 | disposition home or self-care (01) ==
PROVIDERS: PCP Internal Medicine; Visit Provider Physician Assistant
DX: Z01.810 Encounter for preprocedural cardiovascular examination (principal); I11.9 Hypertensive heart disease without heart failure
CPT/HCPCS: 93306

== ENCOUNTER 2024-09-09 09:41 | Outpatient (CLI) | payer BC, SELFPAY ==
[2024-09-09 10:47] LABS: Basophils % 0.6 % (0.1-2.0); Eosinophils # 0.3 Kmm3 (0.0-0.4); Eosinophils % 4.1 % (0.1-12.0); Hematocrit 42.7 % (37.0-47.0); Hemoglobin 13.7 g/dL (12.2-16.2); Immature Granulocytes # 0.03 10^3uL; Immature Granulocytes % 0.4 %; Lymphocytes # 1.9 K/mm3 (0.7-4.5); Lymphocytes % 28.3 % (10-50); Mean Corpuscular HGB Conc 32.1 g/dL (31.8-35.4); Mean Corpuscular Volume 90.3 fl (81-99); Mean Platelet Volume 8.8 fl (7.4-10.4); Monocytes # 0.5 K/mm3 (0.1-1.0); Monocytes % 6.6 % (1.7-9.3); Neutrophils # 4.1 K/mm3 (1.8-7.8); Nucleated Red Blood Cells # 0 10^3/uL; Nucleated Red Blood Cells % 0 %; Platelet Count 243 K/mm3 (142-424); Red Blood Count 4.73 M/mm3 (4.20-5.40); Red Cell Distribution Width 13.9 % (11.5-17.5); Red Cell Distribution Width-SD 45.8 fL; White Blood Count 6.9 K/mm3 (4.8-10.8)
[2024-09-09 11:28] LABS: Free T4 (Free Thyroxine) 0.74 ng/dl (0.78-2.19)
[2024-09-09 13:13] LABS: Albumin Level 4.2 g/dl (3.5-5.0); Chloride 100 mmol/L (98-107); Potassium 3.5 mmoL/L (3.5-5.1); Sodium 140 mmol/L (136-145)
[2024-09-09 13:15] LABS: Blood Urea Nitrogen 19 mg/dl (7-17); Estimated Glomerular Filt Rate 57 ml/min (>60); GFR (African American) 69 ML/MIN (>60)
[2024-09-09 13:16] LABS: Alanine Aminotransferase 26 U/L (12-78); Alkaline Phosphatase 108 U/L (38-126); Anion Gap 12.5 mEq/L (5-15); Aspartate Amino Transferase 31 U/L (14-36); Bilirubin,Direct 0.2 mg/dl (0.0-0.4); Bilirubin,Indirect 0.3 mg/dL (0.0-0.9); Bilirubin,Total 0.5 mg/dl (0.2-1.3); Bilirubin,Unconjugated 0.3 mg/dL (0.0-1.1); Calcium 9.2 mg/dl (8.4-10.2); Carbon Dioxide 31 mmol/L (22.0-30.0); Cholesterol 196 mg/dl (140-200); Glucose 142 mg/dl (74-100); Magnesium 1.9 mg/dl (1.6-2.3); Total Protein,Serum 7.1 g/dl (6.3-8.2); Triglycerides 153 mg/dl (30-150); VLDL Cholesterol 31 mg/dL (0-40)
[2024-09-09 13:17] LABS: Chol/HDL Ratio 3.5 (1-3.5); HDL Cholesterol 56 mg/dl (40-60)
[2024-09-09 13:28] LABS: Direct LDL Cholesterol 102.39 mg/dL (100-129)
== END 2024-09-09 23:59 | disposition home or self-care (01) ==
LOC: LAB 09:42
PROVIDERS: PCP Internal Medicine; Visit Provider Nurse Practitioner Family
DX: I11.9 Hypertensive heart disease without heart failure (principal)
CPT/HCPCS: 36415; 80048; 80061; 80076; 83735; 84439; 84443; 85025

== ENCOUNTER 2024-09-15 16:22 | Outpatient (CLI) | payer BC, SELFPAY ==
--- NOTE | 2024-09-15 16:26 | XR_ITS ---
PROCEDURE INFORMATION: Exam: XR Right Knee Exam date and time: 09/15/2024 4:38 PM Age: 58 years old Clinical indication: Pain; Knee; Right; Additional info: Right knee pain TECHNIQUE: Imaging protocol: Radiologic exam of the right knee. Views: 3 views. AP [place] Lateral COMPARISON: No relevant prior studies available. FINDINGS: Bones/joints: Mild to moderate generalized bony degenerative changes. Tricompartmental bony irregularity identified. Bony structures appear otherwise unremarkable. No visualized evidence for acute bony fracture or dislocation. No joint effusion is demonstrated. Soft tissues: The soft tissue appear unremarkable. Notes: If there is further concern, recommend follow-up radiographs or MRI for complete assessment. IMPRESSION: 1. No acute bony findings. 2. Chronic degenerative changes.
--- OUTSIDE RECORDS SUMMARY | 2024-09-15 16:26 | XMS_ITS | Encounter Summary ---
Author Organization [facility] In iatives Address [facility] [place] [address] Care Team Providers Care Coroner/Medical Examiner Name Role Phone Unavailable Primary Care Provider Unavailabl e Encounter Details Date Type Department Care Team (Late st Contact Info) Description 12/09/2019 Transcribed Document [facility] Radiology 1 [place] [address] Provider, Marysol Canchola MD Social History Tobacco Use Types Packs/Day Years Used Date Smoking Tobacco: Never Assessed Comments Unknown Sex and Gender Information Value Date Recorded Sex Assigned at Not on file Legal Sex Female 3:08 PM CDT Gender Identity Not on file Sexual Orientation Not on file documented as of this encounter Miscellaneous Notes * Cerner Conversion Note - [facility] Jesika ProviderMD - 12/09/2019 1:24 PM EDT [facility] Endo PACU Summary Primary Physician: NICOL SCHILLING MD-GAE Finalized Date/Time: 12/09/19 12:59:17 Pt. Name: CLARISSE HOLLAND MARICHUY Howard/Sex: 1965 Female Med Rec #: [id number] Physician: NICOL SCHILLING MD-GAE Financial #: [id number] Pt. Type: E Room/Bed: [facility] Admit/Disch: 12/09/19 11:20:00 - Institution: [facility] PACU Case Times Entry 1 In PACU I 12/09/19 12:37:00 Ready for PACU 12/09/19 12:59:00 Discharge Discharge from PACU 12/09/19 12:59:00 I Finalized By: Apoorva Anna, Rn Document Signatures Signed By: Apoorva Anna Rn 12/09/19 12:59 Electronically signed by Marysol Mahajan Conversion [facility] Specialist Cerner at 08/30/2022 7:46 PM CDT documented in this encounter Plan of Treatment Upcoming Encounters Date Type Department Care Team (Late st Contact Info) Description 12/10/2024 8:26 AM EDT Hospital Encounter [facility] Endoscopy [address] [place] [address] Sisi Geiger MD [address] [place] [address] 12/10/2024 8:26 AM EDT - 12/10/2024 8:57 AM EDT Surgery [facility] Endoscopy 1 [place] [address] Sisi Geiger MD [address] [place] [address] COLONOSCOPY Scheduled Procedures Name Priority Associated Diagnoses Date/Ti me COLONOSCOPY History of colon polyps 12/10/2024 8:26 AM EDT documented as of this encounter Visit Diagnoses Not on filedocumented in this encounter
--- OUTSIDE RECORDS SUMMARY | 2024-09-15 16:26 | XMS_ITS | Encounter Summary ---
Author Organization Healthcare Address [address] [place] [address] Care Team Providers Care Intensive Care Unit Nurse Name Role Phone Javier Wasserman MD Primary Care Provider [phone] Tristen Valenzuela MD Primary Care Provider [phone] Anaid Thompson RV SERVICER Unavailable [phone] Encounter Details Date Type Department Care Team (Late st Contact Info) Description 07/27/2023 Orders Only External Location [address] [place] [address] Tristen Valenzuela MD [address] [facility] [address] [place] [address] Social History Tobacco Use Types Packs/Day Years Used Date Smoking Tobacco: Never Assessed Comments Unknown Sex and Gender Information Value Date Recorded Sex Assigned at Female 10/22/2023 3:47 PM EDT Legal Sex Female 6:32 PM EDT Gender Identity Female 10/22/2023 3:47 PM EDT Sexual Orientation Not on file documented as of this encounter Plan of Treatment Upcoming Encounters Date Type Department Care Team (Late st Contact Info) Description 09/22/2024 12:[address] [facility] Ultrasound [address] [place] [address] 10/06/2024 8:10 AM EDT Office Visit [facility] [address] [place] [address] Anaid Thompson, RV SERVICER [address] [place] [address] documented as of this encounter Procedures Procedure Name Priority Date/Time Associated Diagnosis Comments US OUTSIDE IMAGES 07/27/2023 2:32 PM EDT documented in this encounter Results * US OUTSIDE IMAGES (07/27/2023 2:32 PM EDT) Anatomical Region Laterality Modality Ultrasound 07/27/2023 2:32 PM EDT us Tristen Valenzuela MD IMG US PROCEDURES Final Result documented in this encounter Visit Diagnoses Not on filedocumented in this encounter Care Teams Intensive Care Unit Nurse Relationship Specialty Start Date End Date Javier Wasserman MD [address] [place] [address] PCP - General 08/20/20 10/23/23 Tristen Valenzuela MD [facility] [address] [place] [address] PCP - General 10/24/23 Anaid Thompson APRN [address] [facility] [place] [address] Nurse Practitioner Urology 03/03/24 documented as of this encounter
--- OUTSIDE RECORDS SUMMARY | 2024-09-15 16:26 | XMS_ITS | Encounter Summary ---
Author Organization Healthcare Address [address] [place] [address] Care Team Providers Care Tool And Fixture Repairer Name Role Phone Javier Wasserman MD Primary Care Provider [phone] Tristen Valenzuela MD Primary Care Provider [phone] Anaid Thompson TANK BOTTOM ASSEMBLER Unavailable [phone] Encounter Details Date Type Department Care Team (Late st Contact Info) Description 07/27/2023 Orders Only External Location [address] [place] [address] Tristen Valenzuela MD [address] [facility] [address] [place] [address] Social History Tobacco Use Types Packs/Day Years [...] Info) Description 09/22/2024 12:00 PM EDT Appointment [facility] Ultrasound [address] [place] [address] 10/06/2024 8:10 AM EDT Office Visit [facility] [address] [place] [address] Anaid Thompson, TANK BOTTOM ASSEMBLER [address] [place] [address] documented as of this encounter Procedures Procedure Name Priority Date/Time Associated Diagnosis Comments US OUTSIDE IMAGES 07/27/2023 2:43 PM EDT documented in this encounter Results * US OUTSIDE IMAGES (07/27/2023 2:43 PM EDT) Anatomical Region Laterality Modality Ultrasound 07/27/2023 2:43 PM EDT us Tristen Valenzuela MD IMG US PROCEDURES Final Result documented in this encounter Visit Diagnoses Not on filedocumented in this encounter Care Teams Tool And Fixture Repairer Relationship Specialty Start Date End Date Javier Wasserman MD [address] [place] [address] PCP - General 08/20/20 10/23/23 Tristen Valenzuela MD [facility] [address] [place] [address] PCP - General 10/24/23 Anaid Thompson APRN [address] [facility] [place] [address] Nurse Practitioner Urology 03/03/24 documented as of this encounter
--- OUTSIDE RECORDS SUMMARY | 2024-09-15 16:26 | XMS_ITS | Encounter Summary ---
Author Organization [facility] Address [address] [place] [address] Care Team Providers Care Shrimp Picker Name Role Phone Unavailable Primary Care Provider Unavailabl e Encounter Details Date Type Department Care Team (Late st Contact Info) Description 12/09/2019 Transcribed Document [facility] Radiology [address] [place] [address] Provider, Marysol Canchola MD Social History Tobacco Use Types Packs/Day Years Used Date Smoking Tobacco: Never Assessed Comments Unknown Sex and Gender Information Value Date Recorded Sex Assigned at Not on file Legal Sex Female 3:08 PM CDT Gender Identity Not on file Sexual Orientation Not on file documented as of this encounter Miscellaneous Notes * Cerner Conversion Note - [facility] Jesika ProviderMD - 12/09/2019 1:47 PM EDT Patient Education Materials Follows: Diverticulosis Diverticulosis is a condition that develops when small pouches (diverticula) form in the wall of the large intestine (colon). The colon is where water is absorbed and stool is formed. The pouches form when the inside layer of the colon pushes through weak spots in the outer layers of the colon. You may have a few pouches or many of them. What are the causes? The cause of this condition is not known. What increases the risk? The following factors may make you more likely to develop this condition: EBeing older than age 60. Your risk for this condition increases with age. Diverticulosis is rare among people younger than age 30. By age 80, many people have it. EEating a low-fiber diet. EHaving frequent constipation. EBeing overweight. ENot getting enough exercise. ESmoking. ETaking phqf-hlu-poftyed pain medicines, like aspirin and ibuprofen. EHaving a family history of diverticulosis. What are the signs or symptoms? In most people, there are no symptoms of this condition. If you do have symptoms, they may include: EBloating. ECramps in the abdomen. EConstipation or diarrhea. EPain in the lower left side of the abdomen. How is this diagnosed? This condition is most often diagnosed during an exam for other colon problems. Because diverticulosis usually has no symptoms, it often cannot be diagnosed independently. This condition may be diagnosed by: EUsing a flexible scope to examine the colon (colonoscopy). ETaking an X-ray of the colon after dye has been put into the colon (barium enema). EDoing a CT scan. How is this treated? You may not need treatment for this condition if you have never developed an infection related to diverticulosis. If you have had an infection before, treatment may include: EEating a high-fiber diet. This may include eating more fruits, vegetables, and grains. ETaking a fiber supplement. ETaking a live bacteria supplement (probiotic). ETaking medicine to relax your colon. ETaking antibiotic medicines. Follow these instructions at home: EDrink 6?8 glasses of water or more each day to prevent constipation. ETry not to strain when you have a bowel movement. EIf you have had an infection before: ? Eat more fiber as directed by your health care provider or your diet and dairy nutrition specialist (dietitian). ? Take a fiber supplement or probiotic, if your health care provider approves. ETake atzc-ghb-tfzeyzk and prescription medicines only as told by your health care provider. EIf you were prescribed an antibiotic, take it as told by your health care provider. Do not stop taking the antibiotic even if you start to feel better. EKeep all follow-up visits as told by your health care provider. This is important. Contact a health care provider if: EYou have pain in your abdomen. EYou have bloating. EYou have cramps. EYou have not had a bowel movement in 3 days. Get help right away if: EYour pain gets worse. EYour bloating becomes very bad. EYou have a fever or chills, and your symptoms suddenly get worse. EYou vomit. EYou have bowel movements that are bloody or black. EYou have bleeding from your rectum. Summary EDiverticulosis is a condition that develops when small pouches (diverticula) form in the wall of the large intestine (colon). EYou may have a few pouches or many of them. EThis condition is most often diagnosed during an exam for other colon problems. EIf you have had an infection related to diverticulosis, treatment may include increasing the fiber in your diet, taking supplements, or taking medicines. This information is not intended to replace advice given to you by your health care provider. Make sure you discuss any questions you have with your health care provider. Document Released: 12/21/2004 Document Revised: 03/08/2018 Document Reviewed: 02/12/2017 [employer] Patient Education ? 2020 [employer]. Colonoscopy, Adult, Care After This sheet gives you information about how to care for yourself after your procedure. Your doctor may also give you more specific instructions. If you have problems or questions, call your doctor. What can I expect after the procedure? After the procedure, it is common to have: EA small amount of blood in your poop for 24 hours. ESome gas. EMild cramping or bloating in your belly. Follow these instructions at home: General instructions EFor the first 24 hours after the procedure: ? Do not drive or use machinery. ? Do not sign important documents. ? Do not drink alcohol. ? Do your daily activities more slowly than normal. ? Eat foods that are soft and easy to digest. ETake rhqz-khz-jjfvvoo or prescription medicines only as told by your doctor. To help cramping and bloating: ETry walking around. EPut heat on your belly (abdomen) as told by your doctor. Use a heat source that your doctor recommends, such as a moist heat pack or a heating pad. ? Put a towel between your skin and the heat source. ? Leave the heat on for 20?30 minutes. ? Remove the heat if your skin turns bright red. This is especially important if you cannot feel pain, heat, or cold. You can get burned. Eating and drinking EDrink enough fluid to keep your pee (urine) clear or pale yellow. EReturn to your normal diet as told by your doctor. Avoid heavy or fried foods that are hard to digest. EAvoid drinking alcohol for as long as told by your doctor. Contact a doctor if: EYou have blood in your poop (stool) 2?3 days after the procedure. Get help right away if: EYou have more than a small amount of blood in your poop. EYou see large clumps of tissue (blood clots) in your poop. EYour belly is swollen. EYou feel sick to your stomach (nauseous). EYou throw up (vomit). EYou have a fever. EYou have belly pain that gets worse, and medicine does not help your pain. Summary EAfter the procedure, it is common to have a small amount of blood in your poop. You may also have mild cramping and bloating in your belly. EFor the first 24 hours after the procedure, do not drive or use machinery, do not sign important documents, and do not drink alcohol. EGet help right away if you have a lot of blood in your poop, feel sick to your stomach, have a fever, or have more belly pain. This information is not intended to replace advice given to you by your health care provider. Make sure you discuss any questions you have with your health care provider. Document Released: 04/28/2011 Document Revised: 01/24/2018 Document Reviewed: 12/18/2016 [employer] Patient Education ? 2020 [employer] Colon Polyps Polyps are tissue growths inside the body. Polyps can grow in many places, including the large intestine (colon). A polyp may be a round bump or a mushroom-shaped growth. You could have one polyp or several. Most colon polyps are noncancerous (benign). However, some colon polyps can become cancerous over time. Finding and removing the polyps early can help prevent this. What are the causes? The exact cause of colon polyps is not known. What increases the risk? You are more likely to develop this condition if you: EHave a family history of colon cancer or colon polyps. EAre older than 50 or older than 45 if you are . EHave inflammatory bowel disease, such as ulcerative colitis or Crohn's disease. EHave certain hereditary conditions, such as: ? Familial adenomatous polyposis. ? Manning syndrome. ? Turcot syndrome. ? Peutz?Jeghers syndrome. EAre overweight. ESmoke cigarettes. James not get enough exercise. EDrink too much alcohol. EEat a diet that is high in fat and red meat and low in fiber. EHad childhood cancer that was treated with abdominal radiation. What are the signs or symptoms? Most polyps do not cause symptoms. If you have symptoms, they may include: EBlood coming from your rectum when having a bowel movement. EBlood in your stool. The stool may look dark red or black. EAbdominal pain. EA change in bowel habits, such as constipation or diarrhea. How is this diagnosed? This condition is diagnosed with a colonoscopy. This is a procedure in which a lighted, flexible scope is inserted into the anus and then passed into the colon to examine the area. Polyps are sometimes found when a colonoscopy is done as part of routine cancer screening tests. How is this treated? Treatment for this condition involves removing any polyps that are found. Most polyps can be removed during a colonoscopy. Those polyps will then be tested for cancer. Additional treatment may be needed depending on the results of testing. Follow these instructions at home: Lifestyle EMaintain a healthy weight, or lose weight if recommended by your health care provider. EExercise every day or as told by your health care provider. James not use any products that contain nicotine or tobacco, such as cigarettes and e-cigarettes. If you need help quitting, ask your health care provider. EIf you drink alcohol, limit how much you have: ? 0?1 drink a day for women. ? 0?2 drinks a day for men. EBe aware of how much alcohol is in your drink. In the [place] one drink equals one 12 oz bottle of beer (355 mL), one 5 oz glass of wine (148 mL), or one 1? oz shot of hard liquor (44 mL). Eating and drinking EEat foods that are high in fiber, such as fruits, vegetables, and whole grains. EEat foods that are high in calcium and vitamin D, such as milk, cheese, yogurt, eggs, liver, fish, and broccoli. ELimit foods that are high in fat, such as fried foods and desserts. ELimit the amount of red meat and processed meat you eat, such as hot dogs, sausage, jj, and lunch meats. General instructions EKeep all follow-up visits as told by your health care provider. This is important. ? This includes having regularly scheduled colonoscopies. ? Talk to your health care provider about when you need a colonoscopy. Contact a health care provider if: EYou have new or worsening bleeding during a bowel movement. EYou have new or increased blood in your stool. EYou have a change in bowel habits. EYou lose weight for no known reason. Summary EPolyps are tissue growths inside the body. Polyps can grow in many places, including the colon. EMost colon polyps are noncancerous (benign), but some can become cancerous over time. EThis condition is diagnosed with a colonoscopy. ETreatment for this condition involves removing any polyps that are found. Most polyps can be removed during a colonoscopy. This information is not intended to replace advice given to you by your health care provider. Make sure you discuss any questions you have with your health care provider. Document Released: 12/20/2004 Document Revised: 07/11/2018 Document Reviewed: 07/11/2018 [employer] Patient Education ? 2019 [employer]. documented in this encounter Plan of Treatment Upcoming Encounters Date Type Department Care Team (Late st Contact Info) Description 12/10/2024 8:26 AM EDT Hospital Encounter [facility] Endoscopy [address] [place] [address] Sisi Geiger MD [address] [place] [address] 12/10/2024 8:26 AM EDT - 12/10/2024 8:57 AM EDT Surgery [facility] Endoscopy [address] [place] [address] Sisi Geiger MD [address] [place] [address] COLONOSCOPY Scheduled Procedures Name Priority Associated Diagnoses Date/Ti me COLONOSCOPY History of colon polyps 12/10/2024 8:26 AM EDT documented as of this encounter Visit Diagnoses Not on filedocumented in this encounter
--- OUTSIDE RECORDS SUMMARY | 2024-09-15 16:27 | XMS_ITS | Clinical Summary ---
Author Organization [facility] Address [address] [place] [address] Care Team Providers Care Silk Screen Printer Name Role Phone Unavailable Primary Care Provider Unavailabl e Allergies No known active allergies Medications triamcinolone (KENALOG) 0.1 % topical cream Apply topically. 2 Active lisinopriL (PRINIVIL,ZESTR IL) 10 MG tablet Take 10 mg by mouth daily. 2 Active escitalopram oxalate (LEXAPRO) 20 MG tablet Take 20 mg by mouth daily. 2 Active colestipoL (COLESTID) 1 gram tablet Take 2 g by mouth daily. 2 Active bisoprolol (ZEBETA) 10 MG tablet Take 10 mg by mouth daily. 2 Active ketoconazole (NIZORAL) 2 % shampoo Apply topically twice a week. Active meloxicam (MOBIC) 7.5 MG tablet Take 7.5 mg by mouth daily. Active potassium chloride SA (K-DUR,KLOR-CON -M) 10 MEQ tablet Take 10 mEq by mouth 2 (two) times daily. Active temazepam (RESTORIL) 15 mg capsule Take 15 mg by mouth every night as needed. Active Active Problems Problem Noted Date Diagnosed Date History of colon polyps 09/02/2024 Encounters Date Type Department Care Team Description 09/02/2024 Surgery Prep [facility] Gastroenterology [address] [place] [address] [facility], [facility] History of colon polyps (Primary Dx) 09/02/2024 Telephone [facility] Gastroenterology [address] [place] [address] Judy Hector S, S.A. Appointment 09/02/2024 Telephone [facility] Gastroenterology [address] [place] [address] Judy Hector S, S.A. Appointment 09/02/2024 Abstract [facility] Gastroenterology [address] [place] [address] Judy Hector, S.A. 09/02/2024 Orders Only [facility] Gastroenterology [address] [place] [address] Provider, MD Jesika from Last 3 Months Social History Tobacco Use Types Packs/Day Years Used Date Smoking Tobacco: Never Assessed Comments Unknown Sex and Gender Information Value Date Recorded Sex Assigned at Not on file Legal Sex Female 3:08 PM CDT Gender Identity Not on file Sexual Orientation Not on file Plan of Treatment Upcoming Encounters Date Type Department Care Team (Late st Contact Info) Description 12/10/2024 8:26 AM EDT Hospital Encounter [facility] Endoscopy 1 [place] [id number] Sisi Geiger MD [address] [place] [address] 12/10/2024 8:26 AM EDT - 12/10/2024 8:[address] [facility] Endoscopy 1 [place] [address] Sisi Geiger MD [address] [place] [address] COLONOSCOPY Scheduled Procedures Name Priority Associated Diagnoses Date/Ti me COLONOSCOPY History of colon polyps 12/10/2024 8:26 AM EDT Insurance [employer]
--- OUTSIDE RECORDS SUMMARY | 2024-09-15 16:27 | XMS_ITS | Encounter Summary ---
Author Organization [facility] Address [facility] [place] [place] [address] Care Team Providers Care Disability Program Navigator Name Role Phone Unavailable Primary Care Provider Unavailabl e Encounter Details Date Type Department Care Team (Late st Contact Info) Description 12/09/2019 Transcribed Document [facility] Radiology 1 [place] [address] Provider, Marysol Canchola MD Social History Tobacco Use Types Packs/Day Years Used Date Smoking Tobacco: Never Assessed Comments Unknown Sex and Gender Information Value Date Recorded Sex Assigned at Not on file Legal Sex Female 3:08 PM CDT Gender Identity Not on file Sexual Orientation Not on file documented as of this encounter Miscellaneous Notes * Cerner Conversion Note - [facility] Jesika ProviderMD - 12/09/2019 12:56 PM EDT Pre Procedure Adult Entered On: 12/09/2019 12:02 EDT Performed On: 12/09/2019 11:56 EDT by Sonya Nava RN Height and Weight, Clinical Dosing Height Source : Stated Height Entry Format : [place] Height, Feet : 5 ft(Converted to: 152 cm, 60 Inch) Height, Inches : 4 Inch(Converted to: 0 ft 4 Inch, 10.16 cm) Clinical Height : 162.56 cm Weight Source : Standing scale Weight Entry Format : [place] Clinical Dosing Weight : 88.64 kg Weight, Pounds : 195 lb Body Surface Area (BSA) : 1.94 m2 Body Mass Index : 33.5 kg/m2 (HI) [place] Body Weight : 54 kg Sonya Nava RN - 12/09/2019 11:56 EDT Health Histories Smoking Status : Never (less than 100 in lifetime; none in last 30 days) Smokeless Tobacco Status : Never Sonya Nava RN - 12/09/2019 11:56 EDT Social History (As Of: 12/09/2019 12:02:48 EDT) Tobacco: Use in Last 12 Months: No. Smoking Status Never smoker. (Last Updated: 11/26/2014 08:11:33 EDT by BARBI BLAKE RN) Alcohol: Alcohol Use History Yes. Date/Time of Last Drink: rare. (Last Updated: 11/26/2014 08:11:59 EDT by BARBI BLAKE RN) Nutrition/Health: Caffeine intake amount: 3-4 cans a day. (Last Updated: 11/26/2014 08:11:45 EDT by BARBI BLAKE RN) Infectious Disease History Has the patient ever been tested for COVID-19? : Yes, Patient stated results Negative Where are the test results? : In EMR Results Date of COVID-19 test known? : Yes Date of COVID-19 Test : 12/05/2019 EDT Does patient have symptoms of COVID-19? : No COVID19 Screening : No Experiencing Infectious Disease Symptoms : No symptoms Physical contact outside [place] in the last 30 days : No Infectious Disease History : Chicken pox/Shingles, Influenza Tuberculosis Symptoms : None Sonya Nava RN - 12/09/2019 11:56 EDT COVID19 PreProcedure Screening Is this an Emergent or Add on Procedure? : No Date of COVID-19 test known? : Yes Date of COVID-19 Test : 12/05/2019 EDT Has patient been isolated since the test : Yes Exposed to COVID19 symptoms since test? : No Sonya Nava RN - 12/09/2019 11:56 EDT Anesthesia/Transfusion History Family History of Anesthesia Reaction : No prior transfusion(s) Transfusion History : Prior anesthesia without reaction Family History of Anesthesia Reaction : None Sonya Nava RN - 12/09/2019 11:56 EDT Functional Assessment Living Situation : Home Current Home Treatments : None Sonya Nava RN - 12/09/2019 11:56 EDT [place] Suicide Severity Rating Scale (C-SSRS) CSSRS Past Month Wish to be : No CSSRS Past Month Suicidal Thoughts : No CSSRS Lifetime Suicide Behavior : No Suicide Severity Rating Score : 0 Suicide Severity Rating : No Additional Care Required at this time Sonya Nava RN - 12/09/2019 11:56 EDT Psychosocial History Currently in Unsafe Situation : No Sonya Nava RN - 12/09/2019 11:56 EDT Advance Directive Patient has Advance Directive *Q : No, patient refuses Advance Directive information Sonya Nava RN - 12/09/2019 11:56 EDT General Info Arrived From : Home Mode of Arrival on Unit : Ambulatory Support Person/Patient Scanning Supervisor : Yes Support Person/Pt Rep Name : Nirmal Garcia Support Person/Pt Rep Contact Information : [phone] Want Family/Rep/Phys Notified of Admit : Yes Name/Contact Info Fam/Rep Notified Adm : Nirmal Radha Name/Contact Info Physician Notified Adm : Javier Wasserman Emergency Contact #1 : Solo Emergency Contact #1 Emergency Contact #1 Relationship : sister Emergency Contact #2 : na Emergency Contact #2 Phone Number : na Emergency Contact #2 Relationship : na Primary Language : Slovenian Communication Barrier : None Freight Broker Needed : Sonya Kuhn RN - 12/09/2019 11:56 EDT Sleep Apnea Risk Assmt Hx of Obstructive Sleep Apnea Diagnosis : No Snore Loudly : Yes Tired, Fatigued, or Sleepy During Day : No Observed Stopping Breathing During Sleep : No Have/Are Being Treated for Hypertension : Yes BMI Greater Than 35 kg/m2 : Yes Age over 50 Years Old : Yes Neck Circumference Greater Than 40 cm : Yes Gender Male : No STOP-BANG Sleep Apnea Risk Level Score : 5 Sonya Nava RN - 12/09/2019 11:56 EDT Johnathan Scale Johnathan Sensory Perception : No impairment Johnathan Moisture : Rarely moist Johnathan Activity : Walks frequently Johnathan Mobility : No limitation Johnathan Nutrition : Excellent Johnathan Friction and Shear : No apparent problem Johnathan Score : 23 Sonya Nava RN - 12/09/2019 11:56 EDT Fall Risk Scales ABCs Fall Injury Risk Identification : None TAYLOR Hx Falls Immediate/Within 3 Months : No Taylor Secondary Diagnosis : No TAYLOR Use of Ambulatory Aid : None TAYLOR IV Therapy or IV Access : Yes Taylor Gait/Transferring : Normal, bedrest, immobile Taylor Mental Status : Oriented to own ability Taylor Fall Risk Score : 20 TAYLOR Fall Scale Risk Level : 0-24 Low Risk [place] Fall Interventions : Bed in low position, Upper side-rails up, Wheels locked Sonya Nava RN - 12/09/2019 11:56 EDT Valuables and Belongings Valuables and Belongings : Clothing, Jewelry, Personal items Clothing : Common streetwear Clothing Disposition : Bedside Jewelry : Necklace Jewelry Disposition : Bedside Personal Items : Cell phone Personal Items Disposition : Bedside Sonya Nava RN - 12/09/2019 11:56 EDT Electronically signed by Keyshawn [facility] [place] Conversion Global Marketing Operations Manager Cerner at 08/30/2022 7:47 PM CDT documented in this encounter Plan of Treatment Upcoming Encounters Date Type Department Care Team (Late st Contact Info) Description 12/10/2024 8:26 AM EDT Hospital Encounter [facility] Endoscopy 1 [place] [address] Sisi Geiger MD [address] [place] [address] 12/10/2024 8:26 AM EDT - 12/10/2024 8:57 AM EDT Surgery [facility] Endoscopy 1 [place] [address] Sisi Geiger MD [address] [place] [address] COLONOSCOPY Scheduled Procedures Name Priority Associated Diagnoses Date/Ti me COLONOSCOPY History of colon polyps 12/10/2024 8:26 AM EDT documented as of this encounter Visit Diagnoses Not on filedocumented in this encounter
--- OUTSIDE RECORDS SUMMARY | 2024-09-15 16:27 | XMS_ITS | Encounter Summary ---
Author Organization [employer] [facility] [employer] Address [address] [place] [address] Care Team Providers Care Machine Staker Name Role Phone Unavailable Primary Care Provider Unavailabl e Encounter Details Date Type Department Care Team (Late st Contact Info) Description 12/09/2019 Transcribed Document [facility] Radiology [address] [place] [address] Provider, Marysol Canchola MD Social History Tobacco Use Types Packs/Day Years Used Date Smoking Tobacco: Never Assessed Comments Unknown Sex and Gender Information Value Date Recorded Sex Assigned at Not on file Legal Sex Female 3:08 PM CDT Gender Identity Not on file Sexual Orientation Not on file documented as of this encounter Miscellaneous Notes * Cerner Conversion Note - Marysol Rawls MD - 12/09/2019 12:26 PM EDT Patient: CLARISSE HOLLAND Age: 54 years Sex: Female : 1965 Associated Diagnoses: None Author: KATHERINE FARIA MD-GENIA Basic Information Source of history: Self. Referral source: MANDY REYES MD-[facility]. Chief Complaint Hx colon polyps, family hx colon cancer History of Present Illness Patient presents today for a Hx colon polyps, family hx colon cancer. Denies any gastrointestinal complaints. Specifically denies rectal bleeding, weight loss, or change in bowel habits. Mother had colon cancer dx 58yo, Father with rectal cancer 72yo. Paternal cousin with colon cancer dx 49yo. Last colonoscopy 11/26/14- single polyp in ascending colon, diverticulosis in LEFT colon, hemorrhoids. Pathology: Ascending colon polyp: Minimal features of hyperplastic polyp. Histories Past Medical History: Active Hypertension (4479302988) Anxiety ([id number]) Renal calculi (234601824) Procedure history: broken left foot. uterine ablation and tubal ligation. Lithotripsy, extracorporeal shock wave (51976). Social History Social & Psychosocial Habits Alcohol 11/26/2014 Alcohol Use History, Social Habits Yes Date/Time of Last Drink rare Nutrition/Health 11/26/2014 Caffeine intake amount: 3-4 cans a day Tobacco 11/26/2014 Tobacco Use Within Last Twelve Months No Smoking Status Never smoker . Family History: No family history items have been selected or recorded., Mother had colon cancer dx 58yo, Father with rectal cancer 72yo. Mother with multiple myeloma. Brother and sister with colon polyps. Paternal cousin with colon cancer dx 49yo. Health Status Allergies: Allergic Reactions (All) Severity Not Documented Penicillin- No reactions were documented. Sulfa drugs- No reactions were documented., Allergies (2) Active Reaction penicillin None Documented sulfa drugs None Documented Current medications: (Selected) Documented Medications Documented Lexapro 20 mg oral tablet: 1 Tab, Oral, Daily, 30 Tab, 0 Refill(s) [employer] Thyroid 30 mg oral tablet: 1 Tab, Oral, Daily, 0 Refill(s) bisoprolol 5 mg oral tablet: 1 Tab, Oral, Daily, 0 Refill(s) lisinopril 10 mg oral tablet: 1 Tab, Oral, Daily, 0 Refill(s), No qualifying data available Problem list: All Problems Anxiety / SNOMED CT 29911318 / Confirmed At risk for sleep apnea / IMO 29363926 / Confirmed Hypertension / SNOMED CT 0577170689 / Confirmed Hypoactive thyroid / SNOMED CT 68269214 / Confirmed Renal calculi / SNOMED CT 098191929 / Confirmed Rapid heart rate / SNOMED CT 0183895 / Confirmed, Active Problems (6) Anxiety At risk for sleep apnea Hypertension Hypoactive thyroid Rapid heart rate Renal calculi Review of Systems Constitutional: No fever, No chills, No weight gain, No weight loss. Eye: No recent visual problem, No blurring. Ear/Nose/Mouth/Throat: No dysphagia, No epistaxis, No hoarse voice, No sore throat. Respiratory: No shortness of breath, No cough, No hemoptysis. Cardiovascular: No chest pain, No palpitations, No claudication. Gastrointestinal: No nausea, No vomiting, No diarrhea, No constipation, No heartburn, No belching, No bloating, No abdominal pain, No hematemesis, No change in bowel habits, No melena, No rectal bleeding. Genitourinary: No dysuria, No hematuria. Hematology/Lymphatics: No bruising tendency, No bleeding tendency. Endocrine: No excessive thirst, No cold intolerance, No heat intolerance. Musculoskeletal: No joint pain, No muscle pain, No gait disturbance, No joint redness. Integumentary: No rash, No pruritus. Neurologic: No confusion, No dizziness, No headache, No seizure. Psychiatric: No anxiety, No depression. the rest of the 10 system review is negative Physical Examination VS/Measurements Vitals Signs (last 24 hrs) Last Charted Minimum Maximum Temp 98 (DEC 08:) 98 (DEC 08:) 98 (DEC 08:) Mon HR 48 (DEC 08:) 48 (DEC 08:) 48 (DEC 08:) Resp Rate H 21 (DEC 08:) H 21 (DEC 08:) H 21 (DEC 08:) SBP 125 (DEC 08:) 125 (DEC 08:03) 125 (DEC 08:) DBP 73 (DEC 08:) 73 (DEC 08:) 73 (DEC 08:) SpO2 99 (DEC 08:) 99 (DEC 08:) 99 (DEC 08:) General: No acute distress. Appearance: Well nourished. Eye: Pupils are equal, round and reactive to light, Extraocular movements are intact, Normal conjunctiva. Sclera: Both eyes, Within normal limits. HENT: Normocephalic, Normal hearing, Oral mucosa is moist. Nose: Both nostrils, Within normal limits, Patent. Mouth: pink. Neck: Supple, Non-tender, No carotid bruit, No jugular venous distention. Respiratory: Lungs are clear to auscultation, Respirations are non-labored, Breath sounds are equal. Pattern: Regular. Cardiovascular: Normal rate, Regular rhythm, No murmur, No gallop, No edema. Arterial pulses: Bilateral, Dorsalis pedis, Within normal limits. Gastrointestinal: Soft, Non-tender, Non-distended, Normal bowel sounds, No organomegaly. Abdomen: Liver ( Within normal limits ). Lymphatics: Lymphatic exam: Bilateral, Cervical chain, Inguinal, Within normal limits. Musculoskeletal: Normal range of motion, Normal strength, No tenderness, No deformity, Normal gait. Integumentary: Warm, Dry, [place], No rash. Integumentary exam: Face, Chest, Arm, Abdomen, Leg. Neurologic: Alert, Oriented, No focal deficits. Orientation: To person, To place, To time. Psychiatric: Cooperative, Appropriate mood & affect, Normal judgment. Review / Management Results review: No qualifying data available. Impression and Plan Hx colon polyps, family hx colon cancer. Proceed with colonoscopy. Risks including that of bleeding, infection, perforation, splenic injury, and missed lesion have been discussed with patient who verbalizes understanding and agrees to proceed. Further recommendations will be based on the above findings. IPaty PA-C, have scribed this note for Dr. Katherine Faria. Katherine Cordoba MD personally interviewed the patient [id number]. I reviewed and discussed with the patient the medical records, medical history and diagnostic studies. I performed a complete physical exam and created the plan of care as documented above. The mid-level provider participated in the patients care by documenting the entire visit, ordering tests and prescribing medications as directed by myself, Dr. Katherine Faria according to my evaluation. documented in this encounter Plan of Treatment Upcoming Encounters Date Type Department Care Team (Late st Contact Info) Description 12/10/2024 8:26 AM EDT Hospital Encounter [facility] Endoscopy [address] [place] [address] Sisi Geiger MD [address] [place] [address] [address] [place] [address] 12/10/2024 8:26 AM EDT - 12/10/2024 8:57 AM EDT Surgery [facility] Endoscopy 1 [place] [id number] Sisi Geiger MD [address] [place] [id number] COLONOSCOPY Scheduled Procedures Name Priority Associated Diagnoses Date/Ti me COLONOSCOPY History of colon polyps 12/10/2024 8:26 AM EDT documented as of this encounter Visit Diagnoses Not on filedocumented in this encounter
--- OUTSIDE RECORDS SUMMARY | 2024-09-15 16:27 | XMS_ITS | Referral Summary ---
Author Organization [employer] [facility] [address] [place] [address] Care Team Providers Care Industrial Relations Commissioner Name Role Phone Unavailable Primary Care Provider Unavailabl e Encounters Date Type Department Care Team Description 09/02/2024 Surgery Prep [facility] Gastroenterology [address] [place] [address] MoiJosue jamesta, [facility] History of colon polyps (Primary Dx) 09/02/2024 Telephone [facility] Gastroenterology [address] [place] [address] Judy Hector S, S.A. Appointment 09/02/2024 Telephone [facility] Gastroenterology [address] [place] [address] Judy Hector S, S.A. Appointment 09/02/2024 Abstract [facility] Gastroenterology [address] [place] [address] Judy Hector S, S.A. 09/02/2024 Orders Only [facility] Gastroenterology [address] [place] [address] Provider, MD Jesika from Last 3 Months Allergies No known active allergies Medications triamcinolone [...] Diagnosed Date History of colon polyps 09/02/2024 Social History Tobacco Use Types Packs/Day Years [...] Description 12/10/2024 8:26 AM EDT Hospital Encounter [facility] Endoscopy [address] [place] [address] Sisi Geiger MD [address] [place] [address] 12/10/2024 8:26 AM EDT - 12/10/2024 8:57 AM EDT Surgery [facility] Endoscopy [address] [place] [address] Sisi Geiger MD [address] [place] [address] COLONOSCOPY Scheduled Procedures Name Priority Associated Diagnoses Date/Ti me COLONOSCOPY History of colon polyps 12/10/2024 8:26 AM EDT Insurance [employer]
--- OUTSIDE RECORDS SUMMARY | 2024-09-15 16:27 | XMS_ITS | Encounter Summary ---
Author Organization [facility] In iatives Address [address] [place] [address] Care Team Providers Care Veneer Taping Machine Offbearer Name Role Phone Unavailable Primary Care Provider Unavailabl e Encounter Details Date Type Department Care Team (Late st Contact Info) Description 12/09/[address] [facility] [address] [place] [address] Provider, Marysol Canchola MD Social History Tobacco Use Types Packs/Day Years Used Date Smoking Tobacco: Never Assessed Comments Unknown Sex and Gender Information Value Date Recorded Sex Assigned at Not on file Legal Sex Female 3:08 PM CDT Gender Identity Not on file Sexual Orientation Not on file documented as of this encounter Miscellaneous Notes * Cerner Conversion Note - Marysol Canchola ProviderMD - 12/09/2019 1:48 PM EDT [address] [address] CLARISSE HOLLANDS :1965 Visit Time:12/09/2019 What to do next Your Diagnosis Personal history of colonic polyps, Personal history of colonic polyps Instructions From Your Care Team Diet after Discharge: Resume usual diet as tolerated, Do not drink any alcoholic beverages, Drink at least 8-10 glasses of water per day Activity after Discharge: _, Rest and relax today, No strenuous activity Driving after Discharge: Do not drive May Return to Work/School: tomorrow Notify Provider of: any questions or problems Follow-Up Appointments Follow Up with NICOL SCHILLING MD-GAE When Comments Repeat colonoscopy in five years. The office will contact you in 7-10 days with pathology results. Where: [address] [facility] [address] [place] [address]- Medications What How Much When Instructions Next Dose bisoprolol (bisoprolol 5 mg oral tablet) 1 Tablet(s) Oral Every Day escitalopram (Lexapro 20 mg oral tablet) 1 Tablet(s) Oral Every Day lisinopril (lisinopril 10 mg oral tablet) 1 Tablet(s) Oral Every Day thyroid desiccated (STOCK CAR DRIVER Thyroid 30 mg oral tablet) 1 Tablet(s) Oral Every Day Take your medications faithfully. Do NOT skip medication. Do NOT stop taking medications without the direction of a physician. Carry a list of your medications with you at all times, and take this medication list with you to your first follow up visit. Report any side effects. Avoid herbal remedies unless discussed with your physician. As part of your treatment plan, your physician may have prescribed a limited course of a controlled substance. This medication may be given to help people with moderate or severe pain or for other medical conditions, but there are risks involved with treatment. Common side effects may include nausea, constipation, drowsiness, sweating, itching, dry mouth, and rash. More serious side effects may include cognitive and motor impairment, like problems with thinking, concentrating, alertness, and movement (e.g. slowed reflexes), and driving and operating heavy machinery can be dangerous. It is important for you to talk to your physician if you have these side effects or questions. These controlled substances can produce physical dependence and be habit-forming if taken for an extended period of time, which means that the body has gotten used to them and may experience withdrawal symptoms if they are abruptly stopped. Withdrawal symptoms can include runny nose, sweating, goose bumps, diarrhea, abdominal cramping, rapid heartbeat, difficulty sleeping, and nervousness. Please dispose of unused and medications per pharmacy guidance. Education Materials Diverticulosis Diverticulosis is a condition that develops [...] you more likely to develop this condition: E Being older than age 60. Your risk for this condition increases with age. Diverticulosis is rare among people younger than age 30. By age 80, many people have it. E Eating a low-fiber diet. E Having frequent constipation. E Being overweight. E Not getting enough exercise. E Smoking. E Taking ohzx-xmv-fukfphd pain medicines, like aspirin and ibuprofen. E Having a family history of diverticulosis. What are the signs or symptoms? In most people, there are no symptoms of this condition. If you do have symptoms, they may include: E Bloating. E Cramps in the abdomen. E Constipation or diarrhea. E Pain in the lower left side of the abdomen. How is this diagnosed? This condition is most often diagnosed during an exam for other colon problems. Because diverticulosis usually has no symptoms, it often cannot be diagnosed independently. This condition may be diagnosed by: E Using a flexible scope to examine the colon (colonoscopy). E Taking an X-ray of the colon after dye has been put into the colon (barium enema). E Doing a CT scan. How is this treated? You may not need treatment for this condition if you have never developed an infection related to diverticulosis. If you have had an infection before, treatment may include: E Eating a high-fiber diet. This may include eating more fruits, vegetables, and grains. E Taking a fiber supplement. E Taking a live bacteria supplement (probiotic). E Taking medicine to relax your colon. E Taking antibiotic medicines. Follow these instructions at home: E Drink 6E glasses of water or more each day to prevent constipation. E Try not to strain when you have a bowel movement. E If you have had an infection before: ? Eat more fiber as directed by your health care provider or your diet and youth nutritional monitor (dietitian). ? Take a fiber supplement or probiotic, if your health care provider approves. E Take qdog-cbq-yliojbz and prescription medicines only as told by your health care provider. E If you were prescribed an antibiotic, take it as told by your health care provider. Do not stop taking the antibiotic even if you start to feel better. E Keep all follow-up visits as told by your health care provider. This is important. Contact a health care provider if: E You have pain in your abdomen. E You have bloating. E You have cramps. E You have not had a bowel movement in 3 days. Get help right away if: E Your pain gets worse. E Your bloating becomes very bad. E You have a fever or chills, and your symptoms suddenly get worse. E You vomit. E You have bowel movements that are bloody or black. E You have bleeding from your rectum. Summary E Diverticulosis is a condition that develops when small pouches (diverticula) form in the wall of the large intestine (colon). E You may have a few pouches or many of them. E This condition is most often diagnosed during an exam for other colon problems. E If you have had an infection related to diverticulosis, treatment may include increasing the fiber in your diet, taking supplements, or taking medicines. This information is not intended to replace advice given to you by your health care provider. Make sure you discuss any questions you have with your health care provider. Document Released: 12/21/2004 Document Revised: 03/08/2018 Document Reviewed: 02/12/2017 [employer] Patient Education ?? 2020 [employer]. Colonoscopy, Adult, Care After This sheet gives you information about how to care for yourself after your procedure. Your doctor may also give you more specific instructions. If you have problems or questions, call your doctor. What can I expect after the procedure? After the procedure, it is common to have: E A small amount of blood in your poop for 24 hours. E Some gas. E Mild cramping or bloating in your belly. Follow these instructions at home: General instructions E For the first 24 hours after the procedure: ? Do not drive or use machinery. ? Do not sign important documents. ? Do not drink alcohol. ? Do your daily activities more slowly than normal. ? Eat foods that are soft and easy to digest. E Take vflq-div-nzedxqd or prescription medicines only as told by your doctor. To help cramping and bloating: E Try walking around. E Put heat on your belly (abdomen) as told by your doctor. Use a heat source that your doctor recommends, such as a moist heat pack or a heating pad. ? Put a towel between your skin and the heat source. ? Leave the heat on for 20E0 minutes. ? Remove the heat if your skin turns bright red. This is especially important if you cannot feel pain, heat, or cold. You can get burned. Eating and drinking E Drink enough fluid to keep your pee (urine) clear or pale yellow. E Return to your normal diet as told by your doctor. Avoid heavy or fried foods that are hard to digest. E Avoid drinking alcohol for as long as told by your doctor. Contact a doctor if: E You have blood in your poop (stool) 2E days after the procedure. Get help right away if: E You have more than a small amount of blood in your poop. E You see large clumps of tissue (blood clots) in your poop. E Your belly is swollen. E You feel sick to your stomach (nauseous). E You throw up (vomit). E You have a fever. E You have belly pain that gets worse, and medicine does not help your pain. Summary E After the procedure, it is common to have a small amount of blood in your poop. You may also have mild cramping and bloating in your belly. E For the first 24 hours after the procedure, do not drive or use machinery, do not sign important documents, and do not drink alcohol. E Get help right away if you have a [...] 04/28/2011 Document Revised: 01/24/2018 Document Reviewed: 12/18/2016 [employer] Patient Education ?? 2020 Genome. Colon Polyps Polyps are tissue growths inside [...] likely to develop this condition if you: E Have a family history of colon cancer or colon polyps. E Are older than 50 or older than 45 if you are . E Have inflammatory bowel disease, such as ulcerative colitis or Crohn's disease. E Have certain hereditary conditions, such as: ? Familial adenomatous polyposis. ? Manning syndrome. ? Turcot syndrome. ? Peutz???Jeghers syndrome. E Are overweight. E Smoke cigarettes. E Do not get enough exercise. E Drink too much alcohol. E Eat a diet that is high in fat and red meat and low in fiber. E Had childhood cancer that was treated with abdominal radiation. What are the signs or symptoms? Most polyps do not cause symptoms. If you have symptoms, they may include: E Blood coming from your rectum when having a bowel movement. E Blood in your stool. The stool may look dark red or black. E Abdominal pain. E A change in bowel habits, such as constipation [...] testing. Follow these instructions at home: Lifestyle E Maintain a healthy weight, or lose weight if recommended by your health care provider. E Exercise every day or as told by your health care provider. E Do not use any products that contain nicotine or tobacco, such as cigarettes and e-cigarettes. If you need help quitting, ask your health care provider. E If you drink alcohol, limit how much you have: ? 0E drink a day for women. ? 0E drinks a day for men. E Be aware of how much alcohol is in your drink. In the [place] one drink equals one 12 oz bottle of beer (355 mL), one 5 oz glass of wine (148 mL), or one 1?? oz shot of hard liquor (44 mL). Eating and drinking E Eat foods that are high in fiber, such as fruits, vegetables, and whole grains. E Eat foods that are high in calcium and vitamin D, such as milk, cheese, yogurt, eggs, liver, fish, and broccoli. E Limit foods that are high in fat, such as fried foods and desserts. E Limit the amount of red meat and processed meat you eat, such as hot dogs, sausage, jj, and lunch meats. General instructions E Keep all follow-up visits as told by your health care provider. This is important. ? This includes having regularly scheduled colonoscopies. ? Talk to your health care provider about when you need a colonoscopy. Contact a health care provider if: E You have new or worsening bleeding during a bowel movement. E You have new or increased blood in your stool. E You have a change in bowel habits. E You lose weight for no known reason. Summary E Polyps are tissue growths inside the body. Polyps can grow in many places, including the colon. E Most colon polyps are noncancerous (benign), but some can become cancerous over time. E This condition is diagnosed with a colonoscopy. E Treatment for this condition involves removing any polyps that are found. Most polyps can be removed during a colonoscopy. This information is not intended to replace advice given to you by your health care provider. Make sure you discuss any questions you have with your health care provider. Document Released: 12/20/2004 Document Revised: 07/11/2018 Document Reviewed: 07/11/2018 [employer] Patient Education ?? 2020 Genome. Emergency Awareness and Preventative Care STROKE is an EMERGENCY Every Minute Counts Act FAST and Check for these signs: FACE Does the face look uneven? ARM Does one arm drift down? SPEECH Does their speech sound strange? TIME Call at any sign of stroke Stroke Risk Factors Atrial Fibrillation (irregular heartbeat) Diabetes Family history of stroke Heart Disease Heavy alcohol use High Blood Pressure High Cholesterol Physical inactivity and obesity Smoking Cigarette Smoking The facts are clear, cigarette smoking will shorten your life. Smoking can cause many illnesses along the way. As a healthcare provider, we recommend that you stop smoking. Assistance with quitting is available by contacting 9-074-RNSI-NOW. This is a free resource providing counseling, support, and referral. Or you may contact your personal physician. National Suicide Prevention Lifeline: The National Suicide Prevention Lifeline is a national network of local crisis centers that provides free and confidential emotional support to people in suicidal crisis or emotional distress 24 hours a day, 7 days a week. Don't Wait! Stop a Heart Attack Before it Starts What is a heart attack? A heart attack is damage or to a part of the heart from severely decreased or lack of blood flow to the heart. Over time, arteries can become narrow from the buildup of fat and cholesterol, which is called plaque. The plaque can rupture causing a blood clot to form. When the blood clot forms, the artery can become severely narrowed or completely blocked, causing a heart attack. Heart attack is the leading cause of in the [place]. 85% of muscle damage occurs within the first 2 hours. Delay in the recognition of heart attack symptoms increases the chances of . Know the early symptoms of a heart attack: Nausea Feeling of fullness in chest Jaw Pain Pain that travels down one or both arms Fatigue/being tired Anxiety Back Pain Chest pressure, squeezing, or discomfort Shortness of breath Sweating, or a cold sweat Feeling of impending doom There are unusual signs of a heart attack, too! Women, the elderly, and diabetics may present with atypical symptoms: Fainting/dizziness Weakness Confusion Risk Factors for a Heart Attack Some heart disease risk factors, such as age and family history, cannot be changed. Others, like smoking and lack of exercise, can be changed. Smoking High Cholesterol High Blood Pressure Family History Obesity Age Gender (Males are at higher risk) Lack of Exercise Diabetes Diet Stress Excessive Alcohol Intake If you or someone you know is experiencing the signs and symptoms of a heart attack, DON???T DELAY. Call immediately and seek help. If someone collapses, perform CPR! Do not attempt to drive if you are having symptoms of heart attack. Hands-Only CPR Why Hands-Only CPR? Hands-Only CPR has been shown to be as effective as conventional CPR for cardiac arrests that occur outside of a hospital. Survival depends on immediately receiving CPR from someone nearby. How do you perform Hands-Only CPR? There are two easy steps: Call if you see a teen or adult collapse Push hard and fast in the center of the chest at a beat of 100 beats per minute. Save a life! 4 WAYS TO GET AHEAD OF SEPSIS SEPSIS is a MEDICAL EMERGENCY. Time matters! Infections put you and your family at risk for a life-threatening condition called sepsis. Sepsis is the body's extreme response to an infection. It is life-threatening, and without timely treatment, sepsis can rapidly lead to tissue damage, organ failure, and . Sepsis happens when an infection you already have-in your skin, lungs, urinary tract or somewhere else-triggers a chain reaction throughout your body. 1 PREVENT INFECTIONS Take good care of chronic conditions. Talk to your doctor about getting the recommended vaccines. 2 PRACTICE GOOD HYGIENE Wash your hands frequently. Keep cuts or open sores clean and covered until they are healed. 3 KNOW THE SYMPTOMS Confusion or disorientation Shortness of breath High heart rate Fever, shivering, or feeling very cold Extreme pain or discomfort Clammy or sweaty skin 4 ACT FAST Get medical care IMMEDIATELY if you suspect sepsis or if you have an infection that is not getting better or is getting worse. To learn more about sepsis and how to prevent infections, visit www.cdc.gov/sepsis. Test Results Laboratory or Other Results This Visit (last charted value for your 12/09/2019 visit) Microbiology 12/05/2019 11:00 AM Novel Coronavirus 2019: Not Detected Patient Name:CLARISSE HOLLAND I have received this information and was given the opportunity to ask questions. Patient/Software Packager Name: Patient/Software Packager Signature: Relationship to Patient: Clinician/Hospital Software Packager Signature: Date: documented in this encounter Plan of Treatment Upcoming Encounters Date Type Department Care Team (Late st Contact Info) Description 12/10/2024 8:26 AM EDT Hospital [facility] [address] [place] [address] Sisi Geiger MD [address] [place] [address] 12/10/2024 8:26 AM EDT - 12/10/2024 8:57 AM EDT Surgery [facility] [address] [place] [address] Sisi Geiger MD [address] [place] [address] COLONOSCOPY Scheduled Procedures Name Priority Associated Diagnoses Date/Ti me COLONOSCOPY History of colon polyps 12/10/2024 8:26 AM EDT documented as of this encounter Visit Diagnoses Not on filedocumented in this encounter
--- OUTSIDE RECORDS SUMMARY | 2024-09-15 16:27 | XMS_ITS | Encounter Summary ---
Author Organization [facility] In [place] Address [address] [place] [address] Care Team Providers Care Security Researcher Name Role Phone Unavailable Primary Care Provider Unavailabl e Encounter Details Date Type Department Care Team (Late st Contact Info) Description 09/02/2024 Abstract [facility] Gastroenterology [address] [place] [address] Judy Hector S, S.A. Social History Tobacco Use Types Packs/Day Years [...] Description 12/10/2024 8:26 AM EDT Hospital Encounter [facility] 1 [place] [address] Sisi Geiger MD [address] [place] [address] 12/10/2024 8:26 AM EDT - 12/10/2024 8:57 AM EDT Surgery [facility] 1 [place] [address] Sisi Geiger MD [address] [place] [address] COLONOSCOPY Scheduled Procedures Name Priority Associated Diagnoses Date/Ti me COLONOSCOPY History of colon polyps 12/10/2024 8:26 AM EDT documented as of this encounter Visit Diagnoses Not on filedocumented in this encounter
--- OUTSIDE RECORDS SUMMARY | 2024-09-15 16:27 | XMS_ITS | Clinical Summary ---
Author Organization [facility] Address [address] [place] [address] Care Team Providers Care Car Carder Name Role Phone Tristen Valenzuela MD Primary Care Provider [phone] Anaid Thompson MARBLE RUBBER Unavailable [phone] Allergies Active Allergy Reactions Criticality Noted Date Comments Erythromycin Rash Low 02/28/2016 Penicillins Rash High 02/28/2016 Patient has taken Amox, Augmentin, Kelfex, and Cefdinir before and tolterated all of them Sulfa Drugs Rash High 09/12/2021 Medications bisoprolol (Zebeta) 10 MG tablet Take 1 tablet (10 mg) by mouth 1 (one) time each day. Active escitalopram (Lexapro) 20 MG tablet Take 1 tablet (20 mg) by mouth 1 (one) time each day. 4 Active lisinopril-hydr oCHLOROthiazide 10-12.5 MG tablet Take 1 tablet by mouth 1 (one) time each day. Active multivitamin (Theragran) tablet Take 1 tablet by mouth 1 (one) time each day. Active ALPRAZolam (Xanax) 0.5 MG tablet Take 1 tablet (0.5 mg) by mouth at night if needed for anxiety. Active lidocaine (Lidoderm) 5 % patch Apply 1 patch topically 1 (one) time each day over 12 hours. Remove & discard patch within 12 hours or as directed by MD. 7 patch 4 Active methocarbamol (Robaxin) 500 MG tablet Take 1 tablet (500 mg) by mouth 4 (four) times a day if needed for muscle spasms for up to 7 days. 20 tablet 4 Active oxyCODONE (Roxicodone) 5 MG immediate release tablet Take 1 tablet (5 mg) by mouth every 6 (six) hours if needed for severe pain for up to 5 doses. 5 tablet 4 Active naloxone (Narcan) 4 mg/0.1 mL nasal spray 1. Give 1 spray in nostril for no/slow breathing or cannot wake after opioid use 2. Call 911 3. Repeat in other nostril if symptoms continue 1 each 4 Active Active Problems Problem Noted Date Diagnosed Date Kidney stone 10/24/2023 Family History Medical History Relation Name Comments Anesthesia problems Neg Hx Malig Hyperthermia Neg Hx Social History Tobacco Use Types Packs/Day Years Used Date Smoking Tobacco: Never Smokeless Tobacco: Never Tobacco Cessation:Counseling Given: Not Answered Alcohol Use Standard Drinks/Week Comments Yes 0 (1 standard drink = 0.6 oz pur e alcohol) socially PHQ-2 Answer Date Recorded Patient Health Questionnaire-2 Score 0 05/05/2024 PHQ-9 Answer Date Recorded Patient Health Questionnaire-9 Score 0 05/05/2024 CAGE ASSESSMENT Answer Date Recorded Cage unable to access Not on file 10/24/2023 Cage max number of drinks Not on file 2023 Cage Beverages a week Not on file 10/24/2023 Have you ever felt you should CUT down on your d rinking? 0 10/24/2023 Have you been ANNOYED by people criticizing your drinking? 0 10/24/2023 Have you felt GUILTY about your drinking? 0 10/24/2023 Have you had a drink first t vivian in the morning (EYE-CORRECTIONAL OFFICER CAPTAIN) to steady your nerves or to get rid of a hangover? 0 10/24/2023 CAGE Questionnaire Score 0 024 PHQ-2A Answer Date Recorded Depression Risk 0 05/05/2024 PHQ-9A Answer Date Recorded Depression Risk Score 0 05/05/2024 Comments No Sex and Gender Information Value Date Recorded Sex Assigned at Female 10/22/2023 3:47 PM EDT Legal Sex Female 6:32 PM EDT Gender Identity Female 10/22/2023 3:47 PM EDT Sexual Orientation Not on file Last Filed Vital Signs Vital Sign Reading Time Taken Comments Blood Pressure 118/59 05/05/2024 8:24 AM EST Pulse 85 05/05/2024 8:24 AM EST Temperature 37 C (98.6 F) 05/05/2024 8:24 AM EST Respiratory Rate 18 03/03/2024 1:41 PM EST Oxygen Saturation 95% 03/03/2024 1:41 PM EST Inhaled Oxygen Concentration - - Weight 90.7 kg (199 lb 15.3 oz) 05/05/2024 8:24 AM EST Height 160 cm (5' 3 ) 05/05/2024 8:24 AM EST Body Mass Index 35.42 05/05/2024 8:24 AM EST Plan of Treatment Upcoming Encounters Date Type Department Care Team (Late st Contact Info) Description 09/22/2024 12:00 PM EDT Appointment [facility] Ultrasound [address] [place] [address] 10/06/2024 8:10 AM EDT [facility] Visit [facility] [address] [place] [address] Noomen, Anaid M, MARBLE RUBBER [address] [place] [address] Health Maintenance Due Date Last Done Comments [facility]-HIV Screening 1965 [facility]-Hepatitis C Screening 1965 [facility]-Infant/Child/Adol SDOH Screenings 1965 [facility]- SDOH Screenings 1984 [facility]-Adult SDOH Screenings 1984 [facility]-Hepatitis B Vaccines (1 of 3 - 19+ 3-dose series) 1985 [facility]-Pap Smear 10/14/1987 [facility]-Cervical Cancer Screening 1996 [facility]-HPV/Cotest 1996 CT Colonography 10/14/2011 Colonoscopy 10/14/2011 FIT-DNA 10/14/2011 FIT 10/14/2011 FOBT 10/14/2011 Sigmoidoscopy 10/14/2011 [facility]-Colorectal Cancer Screening 10/14/2011 [facility]-Pneumococcal Vaccine: 50+ Years (1 of 1 - PCV) 2016 [facility]-Zoster Vaccines (1 of 2) 2016 [facility]-Depression Screening 05/05/2025 025, 05/05/2024, 05/05/2024, Additional history exists [facility]-Breast Cancer Screening 09/03/202508/08, 08/24/2023, 08/24/2023, Additional history exists [facility]-DTaP,Tdap,and Td Vaccines (2 - Td or Tdap) 09/27/2033 09/28/2023 [facility]-Influenza Vaccine Completed 01/25/2024 , 02/27/2023, 12/29/2016 [id number] Vaccine Completed 02/14/2024, 01/22/2023, 05/19/2022, Additional history exists [facility]-Obesity Intervention Completed 025, 03/03/2024, 09/21/2023, Additional history exists HPV Vaccines Aged Out No longer eligi ble based on patient's age to complete this topic [facility]-HIB Vaccines Aged Out No longer e ligible based on patient's age to complete this topic [facility]-Hepatitis A Vaccines Aged Out No longer eligible based on patient's age to complete this topic [facility]-IPV Vaccines Aged Out No longer e ligible based on patient's age to complete this topic [facility]-Rotavirus Vaccines Aged Out No lo nger eligible based on patient's age to complete this topic Medical Devices Implanted Type Area Core Rescuer Device Identifier Shelf Expiration Date Model / Serial / Lot Stent Ureteral Double Pigtail Pos 6fr 24cm - [id number] Implanted:Qty: 1 on 10/24/2023 by Nate Lerma MD at [facility] Stent Right: [id number] 05/30/2025 [id number] 0 / / [id number] Stent Ureteral Double Pigtail Pos 5fr 24cm - [id number] Implanted:Qty: 1 on 11/21/2023 by Nate Lerma MD at [facility] Stent Left: [id number] 05/31/2025 [id number] 0 / / [place] [address] ANTHEM Advance Directives * Full Code (Latest Code Status on File) Date Activated Date Inactivated Comments 10/24/2023 3:46 PM 10/25/2023 2:01 PM Question Answer Comments Patient has decision-making capacity? Yes Care Teams Car Carder Relationship Specialty Start Date End Date Tristen Valenzuela MD [address] [place] [address] PCP - General 10/24/23 Anaid Thompson, JORGE [address] [facility] [address] [place] [id number] Nurse Practitioner Urology 03/03/24
--- OUTSIDE RECORDS SUMMARY | 2024-09-15 16:27 | XMS_ITS | Encounter Summary ---
Author Organization [facility] In iatives Address [facility] [place] [address] Care Team Providers Care Information Systems Specialist Name Role Phone Unavailable Primary Care Provider Unavailabl e Encounter Details Date Type Department Care Team (Late st Contact Info) Description 09/02/2024 Orders Only [facility] Gastroenterology [address] [facility] [address] [place] [address] ProviderJesika MD [address] [place] [address] Social History Tobacco Use Types Packs/Day Years [...] Hospital Encounter [facility] Endoscopy [address] [place] [phone] Sisi Geiger MD [address] [facility] [address] [place] [address] 12/10/2024 8:26 AM EDT - 12/10/2024 8:57 AM EDT Surgery [facility] Endoscopy 1 [place] [phone] Sisi Geiger MD [address] [facility] [address] [place] [address] COLONOSCOPY Scheduled Procedures Name Priority Associated Diagnoses Date/Ti ak COLONOSCOPY History of colon polyps 12/10/2024 8:26 AM EDT documented as of this encounter Procedures Procedure Name Priority Date/Time Associated Diagnosis Comments PATHOLOGY REPORT AP Routine 12/09/2019 11:36 AM EDT HM COLONOSCOPY Routine 12/09/2019 11:35 AM EDT PATHOLOGY REPORT AP Routine 11/26/2014 11:50 AM EDT HM COLONOSCOPY Routine 11/26/2014 11:49 AM EDT documented in this encounter Results * PATHOLOGY REPORT (12/09/2019 11:36 AM EDT) Historical Provider PATHOLOGY/CYTOLOGY ORDERA BLES Final Result * COLONOSCOPY (12/09/2019 11:35 AM EDT) Historical Provider HEALTH MAINTENANCE Final Result * PATHOLOGY REPORT (11/26/2014 11:50 AM EDT) us Dee Dee Asher MD PATHOLOGY/CYTOLOGY ORD ERABLES Final Result * COLONOSCOPY (11/26/2014 11:49 AM EDT) us Dee Dee Asher MD HEALTH MAINTENANCE Fin al Result documented in this encounter Visit Diagnoses Not on filedocumented in this encounter
--- OUTSIDE RECORDS SUMMARY | 2024-09-15 16:27 | XMS_ITS | Encounter Summary ---
Author Organization [facility] In [facility]atives Address [address] [place] [address] Care Team Providers Care Police Worker Name Role Phone Unavailable Primary Care Provider Unavailabl e Reason for Visit * Reason Onset Date Comments Appointment 09/02/2024 Encounter Details Date Type Department Care Team (Late st Contact Info) Description 09/02/2024 Telephone [facility] Gastroenterology [address] [facility] [address] [place] [address] Judy Hector S.A. Appointment Social History Tobacco Use Types Packs/Day Years Used Date Smoking Tobacco: Never Assessed Comments Unknown Sex and Gender Information Value Date Recorded Sex Assigned at Not on file Legal Sex Female 3:08 PM CDT Gender Identity Not on file Sexual Orientation Not on file documented as of this encounter Miscellaneous Notes * Telephone Encounter - Judy Hector SMyrtle - 09/02/2024 11:55 AM EDTSummary: Scheudled colonoscopy Patient called to schedule repeat colonoscopy with Dr. Geiger 12/10/24. Mailed sutab instructions 09/02/24 documented in this encounter Plan of Treatment Upcoming Encounters Date Type Department Care Team (Late st Contact Info) Description 12/10/2024 8:26 AM EDT Hospital Encounter [facility] Endoscopy 1 [place] [phone] Sisi Geiger MD [address] [facility] [address] [place] [address] 12/10/2024 8:26 AM EDT - 12/10/2024 8:57 AM EDT Surgery [facility] Endoscopy 1 [place] [phone] Sisi Geiger MD [address] [facility] [address] [place] [address] COLONOSCOPY Scheduled Procedures Name Priority Associated Diagnoses Date/Ti nh COLONOSCOPY History of colon polyps 12/10/2024 8:26 AM EDT documented as of this encounter Visit Diagnoses Not on filedocumented in this encounter
--- OUTSIDE RECORDS SUMMARY | 2024-09-15 16:27 | XMS_ITS | Encounter Summary ---
Author Organization [facility] In iatives Address [address] [place] [address] Care Team Providers Care Electrical Subcontractor Name Role Phone Unavailable Primary Care Provider Unavailabl e Reason for Visit * Reason Onset Date Comments Appointment 09/02/2024 Encounter Details Date Type Department Care Team (Late st Contact Info) Description 09/02/2024 Telephone [facility] Gastroenterology [address] [facility] [address] [place] [address] Judy Hector S.A. Appointment Social [...] Hector SMyrtle - 09/02/2024 11:55 AM EDTSummary: Order Please order colonoscopy for hx polyps for Juanjo patient. documented in this encounter Plan of Treatment Upcoming Encounters Date Type Department Care Team (Late st Contact Info) Description 12/10/2024 8:26 AM EDT Hospital Encounter [facility] Endoscopy 1 [place] [address] Sisi Geiger MD [address] [facility] [address] [place] [address] 12/10/2024 8:26 AM EDT - 12/10/2024 8:57 AM EDT Surgery [facility] Endoscopy 1 [place] [address] Sisi Geiger MD [address] [place] [address] [address] [place] [address] COLONOSCOPY Scheduled Procedures Name Priority Associated Diagnoses Date/Ti tn COLONOSCOPY History of colon polyps 12/10/2024 8:26 AM EDT documented as of this encounter Visit Diagnoses Not on filedocumented in this encounter
--- OUTSIDE RECORDS SUMMARY | 2024-09-15 16:27 | XMS_ITS | Encounter Summary ---
Author Organization [facility] In iatives Address [address] [place] [address] Care Team Providers Care Ceo And President Name Role Phone Unavailable Primary Care Provider Unavailabl e Encounter Details Date Type Department Care Team (Late st Contact Info) Description 12/09/2019 Transcribed Document [facility] Radiology 1 [place] [address] Provider, Marysol Canchola MD Social History Tobacco Use Types Packs/Day Years Used Date Smoking Tobacco: Never Assessed Comments Unknown Sex and Gender Information Value Date Recorded Sex Assigned at Not on file Legal Sex Female 3:08 PM CDT Gender Identity Not on file Sexual Orientation Not on file documented as of this encounter Miscellaneous Notes * Cerner Conversion Note - [facility] Jesika ProviderMD - 12/09/2019 1:24 PM EDT [facility] End[facility] IntraOp Summary Primary Physician: NICOL SCHILLING MD-GAE Finalized Date/Time: 12/09/19 12:35:43 Pt. Name: PRADEEP HOLLAND MARICHUY /Sex: 1965 Female Med Rec #: [id number] Physician: NICOL SCHILLING MD-GAE Financial #: [id number] Pt. Type: E Room/Bed: [facility] Admit/Disch: 12/09/19 11:20:00 - [place] [facility] - Case Attendance Entry 1 Entry 2 Entry 3 Case Attendee NICOL SCHILLING MD-GAE Childress, TOBI J, RN FLEMING, SCOTT, DO-ANS Role Performed Surgeon/Proceduralist, Loss Control Engineer, First Anesthesiologist of First Record Time In 12/09/19 12:20:00 12/09/19 12:20:00 12/09/19 12:20:00 Time Out 12/09/19 12:36:00 12/09/19 12:36:00 12/09/19 12:36:00 Procedure Colonoscopy, Colon Colonoscopy, Colon Colonoscopy, Colon Polypectomy Polypectomy Polypectomy Other Attendee Superficial Wound Closed By: Last Modified By: JI Shoemaker, JI Piedra, JI Piedra RN 12/09/19 12:35:35 12/09/19 12:35:35 12/09/19 12:35:35 Entry 4 Entry 5 Case Attendee BESSY FERNANDES, OTHER, ATTENDEE TENT WORKER-ANS Role Performed TENT WORKER/Nurse Delivery Sales Worker Scrub, First Time In 12/09/19 12:20:00 12/09/19 12:20:00 Time Out 12/09/19 12:36:00 12/09/19 12:36:00 Procedure Colonoscopy, Colon Colonoscopy, Colon Polypectomy Polypectomy Other Attendee Wandy Cordova Superficial Wound Closed By: Last Modified By: JI Shoemaker, JI Piedra RN 12/09/19 12:35:35 12/09/19 12:35:35 [facility] - Case Attendance Audit 12/09/19 12:35:35 House Moving Supervisor: NORIS Modifier: HOLMESTJ 1 <+> Time Out 1 <*> Procedure Colonoscopy, Colon Polypectomy 2 <+> Time Out 2 <*> Procedure Colonoscopy, Colon Polypectomy 3 <+> Time Out 3 <*> Procedure Colonoscopy, Colon Polypectomy 4 <+> Time Out 4 <*> Procedure Colonoscopy, Colon Polypectomy 5 <+> Time Out 5 <*> Procedure Colonoscopy, Colon Polypectomy 12/09/19 12:29:49 House Moving Supervisor: MARTINEESTJ Modifier: HOLMESTJ 1 <*> Procedure Colonoscopy 2 <*> Procedure Colonoscopy 3 <*> Procedure Colonoscopy 4 <*> Procedure Colonoscopy 5 <*> Procedure Colonoscopy 12/09/19 12:24:55 House Moving Supervisor: MARTINEESTJ Modifier: HOLMESTJ <+> 1 Procedure 2 <+> Time In 2 <*> Procedure Colonoscopy 3 <+> Time In 3 <*> Procedure Colonoscopy 4 <+> Time In 4 <*> Procedure Colonoscopy 5 <+> Time In 5 <*> Procedure Colonoscopy [facility] - Case Times Entry 1 Patient In Room Time 12/09/19 12:20:00 Out Room Time 12/09/19 12:36:00 Anesthesia Start Time 12/09/19 12:20:00 Stop Time 12/09/19 12:36:00 Anesthesia Ready 12/09/19 12:20:00 Surgery / Procedure Times Start Time 12/09/19 12:24:00 Stop Time 12/09/19 12:34:00 Last Modified By: JI Shoemaker RN 12/09/19 12:34:24 [facility] - Case Times Audit 12/09/19 12:34:24 House Moving Supervisor: HOLMESTJ Modifier: HOLMESTJ <+> 1 Out Room Time <+> 1 Stop Time <+> 1 Stop Time 12/09/19 12:24:21 House Moving Supervisor: HOLMESTJ Modifier: HOLMESTJ <+> 1 Start Time [facility] - Cultures and Spec Summary Entry 1 Cultrures and Specimens Specimen Ordered: Yes Test(s) Routine/Path-Lab Requested/Final Disposition Last Modified By: JI Shoemaker RN 12/09/19 12:30:38 [facility] - Delays Entry 1 Delay Reason Other Duration 0 Minute(s) Comment NO DELAY Last Modified By: JI Shoemaker RN 12/09/19 12:23:12 [facility] - Departure from OR Entry 1 Integumentary Assessment Integumentary WDL Assessment WDL Transfer/Handoff Transfer to PACU Phase I Post-op Transport Stretcher/Gurney Via Patient Transport JI Shoemaker, ANNA, Accompanied by BESSY FERNANDES CRNA-ANS Last Modified By: JI Shoemaker RN 12/09/19 12:35:19 [facility] - Endoscopy Details Entry 1 Abdomen Procedure Soft, Non-Tender Assessment Procedure Abdomen 12/09/19 12:23:00 Assessment D/T Radio Frequency Ablation Abdominal Pressure Last Modified By: JI Shoemaker RN 12/09/19 12:23:50 [facility] - Fire Risk Assessment Entry 1 Fire Info Surgical Site or 0- No Incision Above the Xyphoid Open O2 Source 1- Yes (Mask or Cannula) Available Ignition 1- Yes (ESU, Laser, Light Source) Fire Risk 2 Assessment Score Fire Score Fire Risk Yes Assessment Complete Fire Risk JI Shoemaker RN Assessment Verified By Fire Risk 12/09/19 12:23:00 Assessment Verified Date/Time Fire Risk High Risk Protocol Yes Implemented Standard Fire Yes Safety Precautions Followed Last Modified By: JI Shoemaker RN 12/09/19 12:23:20 [facility] - General Case Swimming Pool Plasterer Helper 1 Case Information [place] Case Level 1 Room Verified Yes Wound Class III - Contaminated Specialty SN Gastroenterology Anesthesia Type MAC ASA Class 2 Diagnosis Preop Diagnosis history of polyps Postop Same As Preop No Postop Diagnosis transverse colon polyp Last Modified By: JI Shoemaker RN 12/09/19 12:35:15 [facility] - General Case Data Audit 12/09/19 12:35:15 House Moving Supervisor: NORIS Modifier: MARTINEESTJ <+> 1 Postop Diagnosis [facility] - Intraoperative Assessment Entry 1 Valid History / Yes Physical in Chart Preoperative Yes Checklist Reviewed/Evaluated Allergies Reviewed Yes Patient is Latex No Sensitive Level of WDL Consciousness (WDL = Alert, Oriented to Person, Place, and Time) Present Upon IVs, ECG monitored Arrival to OR Last Modified By: JI Shoemaker RN 12/09/19 12:24:18 [facility] - Intraoperative Equipment Entry 1 Type Scope Equipment Intraop Monitoring Electrocardiogram Three lead placement (ECG) Electrode Placement Blood Pressure Arm, left upper Location Pulse Oximeter Hand, right Probe Site Antiembolic Devices Scopes Flexible Endoscopes Colonoscope, Peds Used Scope Serial [id number] Number/Identificatio n Number Photo/Video Documentation Photo Yes Video No Last Modified By: JI Shoemaker RN 12/09/19 12:24:37 [facility] - Patient Positioning Entry 1 Procedure Colonoscopy, Colon Polypectomy Body Position Lateral, right side up Left Arm Position Resting at side Right Arm Position Resting at side Left Leg Position Other Right Leg Position Other Position Comments Right leg over Left leg uncrossed Feet Uncrossed Yes Pressure Points Yes Checked Positioned By JI Shoemaker RN, BESSY FERNANDES, TENT WORKER-ANS Position Verified Positioning Yes Verified by Anesthesia Positioning Yes Verified by Surgeon Last Modified By: JI Shoemaker RN 12/09/19 12:29:50 [facility] - Patient Positioning Audit 12/09/19 12:29:50 House Moving Supervisor: NORIS Modifier: NORIS 1 <*> Procedure Colonoscopy [facility] - Sign In Entry 1 Patient, Site, Yes Procedure Identified Surgical Consent Yes Confirmed Relevant Surgical Yes Documents Available Surgical Site N/A Marked by person performing procedure Allergies Yes Airway Difficult No Airway/Aspiration Risk Difficult Yes Airway/Aspiration Intervention Equipment Available Blood Loss Risk No Blood Identifiers Not applicable Verified Per Policy Hypothermia Risk No Warming Measures Yes Taken Last Modified By: JI Shoemaker RN 12/09/19 12:25:12 [facility] - Sign Out Entry 1 RN Confirmation Surgical Yes Procedure(s) Identified Instrument, Sponge N/A and Sharps Counts Correct/Documented Equipment Problems N/A Documented Specimen Labeled Yes Correctly Urinary Catheter N/A Documented in IView Safety Checklist Yes Elements Complete? RN Sign Out JI Shoemaker RN Signature RN Sign Out 12/09/19 12:37:00 Signature Date/Time Plan of Care Outcome - Fire Risk OUTCOME STATEMENT: Goal met Patient is free from injury related to surgical fire Plan of Care Outcome - Pt Positioning OUTCOME STATEMENT: Goal met Absence of signs and symptoms of positioning injury. Plan of Care Outcome - Skin Prep OUTCOME STATEMENT: Goal met Intraoperative care is consistent with measures to prevent infection Plan of Care Outcome - Xray/Images OUTCOME STATEMENT: N/A Absence of observable signs or symptoms of radiation injury Plan of Care Outcome - Counts OUTCOME STATEMENT: N/A Absence of signs and symptoms of injury related to extraneous objects Last Modified By: JI Shoemaker RN 12/09/19 12:35:30 [facility] - Surgical Procedures Entry 1 Entry 2 Procedure Colonoscopy Colon Polypectomy Modifiers Additional Procedure Description Primary Procedure Yes No Primary Surgeon NICOL SCHILLING MD-GAE WOLFORD, TRACEY, MD-GAE Start 12/09/19 12:24:00 12/09/19 12:24:00 Stop 12/09/19 12:34:00 12/09/19 12:34:00 Physician States 12/09/19 12:26:00 12/09/19 12:26:00 Cecum Reached Anesthesia Type MAC MAC Specialty SN Gastroenterology SN Gastroenterology Wound Class III - Contaminated III - Contaminated Last Modified By: JI Shoemaker RN JI Shoemaker RN 12/09/19 12:35:04 12/09/19 12:35:04 [facility] - Surgical Procedures Audit 12/09/19 12:35:04 House Moving Supervisor: NORIS Modifier: HOLMESTJ <+> 1 Stop <+> 2 Stop 12/09/19 12:29:45 House Moving Supervisor: DANDREJ Modifier: HOLMESTJ 1 <*> Procedure Colonoscopy 1 <+> Physician States Cecum Reached <+> 2 Procedure <+> 2 Primary Procedure <+> 2 Primary Surgeon <+> 2 Specialty <+> 2 Start <+> 2 Wound Class <+> 2 Anesthesia Type <+> 2 Physician States Cecum Reached [facility] - Time Out Entry 1 Procedure to be Colonoscopy, Colon Performed Polypectomy Time Out Time Out Pause Time 12/09/19 12:23:00 All activity Yes suspended (unless life threatening emergency) Team Verbally Correct patient Confirms Information identity, Consent form is present and accurate, Agreement on the procedure to be done, Correct patient position, Relevant images/results properly labeled/appropriately displayed, Reconcile problems if responses among team members differ Antibiotic N/A Prophylaxis Administered Or In Progress Within the Last 60 Minutes Beta Alma N/A Administered Venous N/A Thromboembolism Prophylaxis Required Anticipated Critical Events Surgeon None expected Anesthesia Provider None expected Last Modified By: JI Shoemaker RN 12/09/19 12:29:50 E Endo - Time Out Audit 12/09/19 12:29:50 House Moving Supervisor: NORIS Modifier: MARTINEESTJ 1 <*> Procedure to be Performed Colonoscopy Case Comments <None> Finalized By: JI Shoemaker, RN Document Signatures Signed By: JI Shoemaker RN 12/09/19 12:35 documented in this encounter Plan of Treatment Upcoming Encounters Date Type Department Care Team (Late st Contact Info) Description 12/10/2024 8:26 AM EDT Hospital Encounter [facility] Endoscopy 1 [place] [address] Sisi Geiger MD [address] [place] [address] [address] [place] [address] 12/10/2024 8:26 AM EDT - 12/10/2024 8:57 AM EDT Surgery [facility] Endoscopy 1 [place] [address] Sisi Geiger MD [address] [facility] [address] [place] [id number] COLONOSCOPY Scheduled Procedures Name Priority Associated Diagnoses Date/Ti me COLONOSCOPY History of colon polyps 12/10/2024 8:26 AM EDT documented as of this encounter Visit Diagnoses Not on filedocumented in this encounter
--- OUTSIDE RECORDS SUMMARY | 2024-09-15 16:27 | XMS_ITS | Encounter Summary ---
Author Organization [facility] [employer] Address [address] [place] [address] Care Team Providers Care Tester Equipment Name Role Phone Unavailable Primary Care Provider Unavailabl e Encounter Details Date Type Department Care Team (Late st Contact Info) Description 12/09/2019 Transcribed Document [facility] Radiology 1 [place] [address] Provider, Marysol Canchola MD Social History Tobacco Use Types Packs/Day Years Used Date Smoking Tobacco: Never Assessed Comments Unknown Sex and Gender Information Value Date Recorded Sex Assigned at Not on file Legal Sex Female 3:08 PM CDT Gender Identity Not on file Sexual Orientation Not on file documented as of this encounter Miscellaneous Notes * Cerner Conversion Note - [facility] Jesika ProviderMD - 12/09/2019 1:30 PM EDT [facility] PreOp Summary Primary Physician: NICOL SCHILLING MD-GAE Finalized Date/Time: 12/09/19 12:22:00 Pt. Name: CLARISSE HOLLAND MARICHUY Howard/Sex: 1965 Female Med Rec #: [id number] Physician: NICOL SCHILLING MD-GAE Financial #: [id number] Pt. Type: E Room/Bed: N/7 Admit/Disch: 12/09/19 11:20:00 - Institution: [facility] PreOp Case Times Entry 1 In Preop 12/09/19 11:36:00 Ready for Holding n/a Room Patient Ready for 12/09/19 12:16:00 Surgery Patient Out of Preop 12/09/19 12:16:00 Patient Out of n/a Holding Room [facility] PreOp Case Times Audit 12/09/19 12:21:55 Banquet Manager: NASIR Modifier: NORIS <+> 1 Patient Out of Preop <+> 1 Patient Ready for Surgery Finalized By: JI Shoemaker RN Document Signatures Signed By: JI Shoemaker RN 12/09/19 12:21 documented in this encounter Plan of Treatment Upcoming Encounters Date Type Department Care Team (Late st Contact Info) Description 12/10/2024 8:26 AM EDT Hospital Encounter [facility] Endoscopy 1 [place] [address] Sisi Geiger MD [address] [place] [address] 12/10/2024 8:26 AM EDT - 12/10/2024 8:57 AM EDT Surgery [facility] Endoscopy 1 [place] [address] Sisi Geiger MD [address] [place] [address] COLONOSCOPY Scheduled Procedures Name Priority Associated Diagnoses Date/Ti me COLONOSCOPY History of colon polyps 12/10/2024 8:26 AM EDT documented as of this encounter Visit Diagnoses Not on filedocumented in this encounter
--- OUTSIDE RECORDS SUMMARY | 2024-09-15 16:27 | XMS_ITS | Encounter Summary ---
Author Organization [facility] [employer] Address [address] [place] [address] Care Team Providers Care Can Sterilizer Name Role Phone Unavailable Primary Care Provider Unavailabl e Encounter Details Date Type Department Care Team (Late st Contact Info) Description 09/02/2024 Surgery Prep [facility] Gastroenterology [address] [place] [address] Tyrone Marshall CMA History of colon polyps (Primary Dx) Social History Tobacco Use Types Packs/Day Years [...] Description 12/10/2024 8:26 AM EDT Hospital Encounter [facility] Endoscopy 1 [place] [phone] Sisi Geiger MD [address] [facility] [address] [place] [address] 12/10/2024 8:26 AM EDT - 12/10/2024 8:57 AM EDT Surgery [facility] Endoscopy 1 [place] [address] Siis Geiger MD [address] [facility] [place] [address] COLONOSCOPY Scheduled Procedures Name Priority Associated Diagnoses Date/Ti me COLONOSCOPY History of colon polyps 12/10/2024 8:26 AM EDT documented as of this encounter Visit Diagnoses Diagnosis History of colon polyps- Primary History of colon polyps- Primary History of colon polyps documented in this encounter
== END 2024-09-15 23:59 | disposition home or self-care (01) ==
LOC: RAD 16:23
PROVIDERS: PCP Internal Medicine; Visit Provider Internal Medicine
DX: M17.11 Unilateral primary osteoarthritis, right knee (principal)
CPT/HCPCS: 73562

== ENCOUNTER 2024-12-15 10:25 | Outpatient (CLI) | payer BC, SELFPAY ==
--- OUTSIDE RECORDS SUMMARY | 2024-12-15 10:27 | XMS_ITS | Encounter Summary ---
Author Organization Healthcare Address [address] [place] [address] Care Team Providers Care Farmworker Grain Name Role Phone Javier Wasserman MD Primary Care Provider [phone] Trisetn Valenzuela MD Primary Care Provider [phone] Anaid Thompson SCALDER Unavailable [phone] Encounter Details Date Type Department Care Team (Late st Contact Info) Description 07/27/2023 Orders Only External Location [address] [place] [address] Tristen Valenzuela MD [address] [facility] [address] [place] [address] Social History Tobacco Use Types Packs/Day Years [...] Care Team (Late st Contact Info) Description 04/07/2025 10:45 AM EST Appointment [facility] [address] [place] [address] 04/07/2025 12:30 PM EST Office Visit [facility] [address] [place] [address] Anaid Thompson, SCALDER [address] [address] documented as of this encounter Procedures Procedure [...] on filedocumented in this encounter Care Teams Farmworker Grain Relationship Specialty Start Date End Date Javier Wasserman MD [address] [place] [address] PCP - General 08/20/20 10/23/23 Tristen Valenzuela MD [address] [place] [address] PCP - General 10/24/23 Anaid Thompson APRN [address] [address] Nurse Practitioner Urology 03/03/24 documented as of this encounter
--- OUTSIDE RECORDS SUMMARY | 2024-12-15 10:27 | XMS_ITS | Encounter Summary ---
Author Organization Healthcare Address [address] [place] [address] Care Team Providers Care Naval Aircrewman Name Role Phone Javier Wasserman MD Primary Care Provider [phone] Tristen Valenzuela MD Primary Care Provider [phone] Anaid Thompson COMMERCIAL INTELLIGENCE MANAGER Unavailable [phone] Encounter Details Date Type Department Care Team (Late st Contact Info) Description 07/27/2023 Orders Only External Location [address] [place] [address] Tristen Valenzuela MD [address] [facility] [address] [place] [address] Social History Tobacco Use Types Packs/Day Years [...] EST Appointment [facility] [address] [place] [address] 04/07/2025 12:30 PM EST Office [facility] [address] [place] [address] Anaid Thompson, COMMERCIAL INTELLIGENCE MANAGER [address] [address] documented as of this encounter Procedures Procedure [...] on filedocumented in this encounter Care Teams Naval Aircrewman Relationship Specialty Start Date End Date Javier Wasserman MD [address] [place] [address] PCP - General 08/20/20 10/23/23 Tristen Valenzuela MD [address] [place] [address] PCP - General 10/24/23 Anaid Thompson APRN [address] [address] Nurse Practitioner Urology 03/03/24 documented as of this encounter
--- OUTSIDE RECORDS SUMMARY | 2024-12-15 10:28 | XMS_ITS | Clinical Summary ---
Author Organization [facility] Address [address] [place] [address] Care Team Providers Care Channel Opener Outsoles Name Role Phone Tristen Valenzuela MD Primary Care Provider [phone] Anaid Thompson STARTING SHEET TANK OPERATOR Unavailable [phone] Allergies Active Allergy Reactions Criticality Noted Date [...] directed by MD. 7 patch 4 Active levothyroxine (Synthroid, Levoxyl) 50 MCG tablet Take 1 tablet by mouth daily. 5 Active QUEtiapine (SEROquel) 25 MG tablet Take 1 tablet by mouth daily. 5 Active Active Problems Problem Noted Date Diagnosed Date History of colon polyps 09/02/2024 Kidney stone 10/24/2023 Acquired hypothyroidism 06/15/2020 Menorrhagia 11/22/2017 Urinary, incontinence, stress female 11/22/2017 Encounters Date Type Department Care Team Description 10/06/2024 8:10 AM EDT Office Visit [facility] Urology [address] [place] [address] Anaid Thompson, STARTING SHEET TANK OPERATOR History of kidney stones (Primary Dx); Kidney stones 10/06/2024 Travel 09/24/2024 Results Follow-Up [facility] Urology [address] [place] [address] Anaid Thompsno, JORGE 09/22/2024 10:39 AM EDT - 09/22/2024 11:59 PM EDT Hospital Encounter [facility] Ultrasound [address] [place] [address] Kidney stones Discharge Disposition: Home or Self Care 09/22/2024 Travel from Last 3 Months Immunizations Immunization Administration Dates Next Due Influenza, injectable, quadrivalent, preservativ e free 02/27/2023,12/29/2016 Influenza, seasonal, injectable, preservative fr ee 01/25/2024 Tdap 09/28/2023 Family History Medical History Relation Name Comments Anesthesia problems Neg Hx Malig Hyperthermia Neg Hx Social History Tobacco Use Types Packs/Day Years Used Date Smoking Tobacco: Never Smokeless Tobacco: Never Alcohol Use Standard Drinks/Week Comments Yes 0 (1 standard drink = 0.6 oz pur e alcohol) socially PHQ-2 Answer Date Recorded Patient Health Questionnaire-2 Score 0 10/06/2024 PHQ-9 Answer Date Recorded Patient Health Questionnaire-9 [...] drink first t vivian in the morning (EYE-BOTTLE HOUSE PUMPER) to steady your nerves or to get [...] EST Inhaled Oxygen Concentration - - Weight 90.3 kg (199 lb) 10/06/2024 7:52 AM EDT Height 160 cm (5' 3 ) 10/06/2024 7:52 AM EDT Body Mass Index 35.25 10/06/2024 7:52 AM EDT Plan of Treatment Upcoming Encounters Date Type Department Care Team (Late st Contact Info) Description 04/07/2025 10:45 AM EST Appointment [facility] [address] [place] [address] 04/07/2025 12:30 PM EST Office Visit [facility] [address] [place] [address] Anaid Thompson M, STARTING SHEET TANK OPERATOR [address] [place] [address] Health Maintenance Due Date Last Done Comments [facility]-HIV Screening 1965 [facility]-Hepatitis C Screening 1965 [facility]-/Child/Adol SDOH Screenings 1965 [facility]- SDOH Screenings 1984 [...] 2016 [facility]-Zoster Vaccines (1 of 2) 2016 [id number] Vaccine (8 - Pfizer risk 2023- season) 2024 02/14/2024, 01/22/2023, 05/19/2022, Additional history exists [facility]-Influenza Vaccine (#1) 12/08/202401/24, 02/27/2023, 12/29/2016 [facility]-Depression Screening 10/06/2025 025, 05/05/2024, 05/05/2024, Additional history exists [facility]-Breast Cancer Screening 09/12/2026 06/09/2024, 09/12/2024, 09/04/2023, Additional history exists [facility]-DTaP,Tdap,and Td Vaccines (2 - Td or Tdap) 09/27/2033 09/28/2023 [facility]-Obesity Intervention Completed 025, 05/05/2024, 03/03/2024, Additional history exists HPV Vaccines Aged Out [...] this topic Medical Devices Implanted Type Area [employer] Teacher Device Identifier Shelf Expiration Date Model / Serial / Lot Stent Ureteral Double Pigtail Pos 6fr 24cm - [id number] Implanted:Qty: 1 on 10/24/2023 by Nate Lerma MD at [facility] Stent Right: [id number] 05/30/2025 [id number] / / [id number] Stent Ureteral Double Pigtail Pos 5fr 24cm - [id number] Implanted:Qty: 1 on 11/21/2023 by Nate Lerma MD at [facility] Stent Left: U[employer]ter [id number] 05/31/2025 [id number] / / Procedures Procedure Name Priority Date/Time Associated Diagnosis Comments US RENAL COMPLETE Routine 09/22/2024 10: 58 AM EDT Kidney stones from Last 3 Months Results * US Renal Complete (09/22/2024 10:58 AM EDT) Anatomical Region Laterality Modality Kidney Ultrasound Impressions 09/22/2024 12:02 PM EDT No hydronephrosis. No sonographically detectable renal calculi. CRITICAL RESULT: No. COMMUNICATION: Per this written report. Drafted by Luma Stone DO on 09/22/2024 11:56 AM Final report signed by Luma Stone DO on 09/22/2024 12:02 PM Narrative 09/22/2024 12:02 PM EDT CLINICAL INDICATION: history of kidney stones TECHNIQUE: Multiplanar static and cine kaplan scale ultrasound images of the kidneys and urinary bladder were obtained, accompanied by selective color Doppler ultrasound images. COMPARISON: Renal ultrasound 03/03/2024. CT renal stone protocol 10/24/2023 FINDINGS: Right Kidney: Normal in size and echogenicity. Length 11.2 cm. No hydronephrosis, obvious calculi or discernible mass. Left Kidney: Normal in size and echogenicity. Length 10.6 cm. No hydronephrosis, obvious calculi or discernible mass. Urinary bladder: Somewhat decompressed but grossly unremarkable. Cystic focus incidentally identified in the right adnexa may represent a dominant follicle measuring up to 1.8 cm. Procedure Note Luma Stone DO - 09/22/2024 CLINICAL INDICATION: history of kidney stones TECHNIQUE: Multiplanar static and cine kaplan scale ultrasound images of the kidneysand urinary bladder were obtained, accompanied by selective color Dopplerultrasound images. COMPARISON: Renal ultrasound 03/03/2024. CT renal stone protocol 10/24/2023 FINDINGS: Right Kidney: Normal in size and echogenicity. Length 11.2 cm. Nohydronephrosis, obvious calculi or discernible mass. Left Kidney: Normal in size and echogenicity. Length 10.6 cm. Nohydronephrosis, obvious calculi or discernible mass. Urinary bladder: Somewhat decompressed but grossly unremarkable. Cystic focus incidentally identified in the right adnexa may represent adominant follicle measuring up to 1.8 cm. IMPRESSION: No hydronephrosis. No sonographically detectable renal calculi. CRITICAL RESULT: No. COMMUNICATION: Per this written report. Drafted by Luma Stone DO on 09/22/2024 11:56 AM Final report signed by Luma Stone DO on 09/22/2024 12:02 PM us Anaid Thompson STARTING SHEET TANK OPERATOR IMG US PROCEDURES Final Res ult from Last 3 Months Insurance ANTHEM Advance Directives * Full Code (Latest Code Status on File) Date Activated Date Inactivated Comments 10/24/2023 3:46 PM 10/25/2023 2:01 PM Question Answer Comments Patient has decision-making capacity? Yes Care Teams Channel Opener Outsoles Relationship Specialty Start Date End Date Tristen Valenzuela MD [address] [facility] [address] [place] [address] PCP - General 10/24/23 Anaid Thompson, JORGE [address] [place] [address] Nurse Practitioner Urology 03/03/24
--- OUTSIDE RECORDS SUMMARY | 2024-12-15 10:28 | XMS_ITS | Encounter Summary ---
Author Organization Healthcare Address [address] [place] [address] Care Team Providers Care Supervisor Drapery Hanging Name Role Phone Tristen Valenzuela MD Primary Care Provider [phone] Anaid Thompson EDUCATION RN Unavailable [phone] Encounter Details Date Type Department Care Team (Late st Contact Info) Description 09/24/2024 Results Follow-Up [facility] Urology [address] [place] [address] Anaid Thompson, EDUCATION RN [address] [place] [address] Social History Tobacco Use Types Packs/Day Years [...] drink first t vivian in the morning (EYE-ASTHMA EDUCATOR) to steady your nerves or to get [...] on file documented as of this encounter Functional Status * Over the past 2 weeks, how often have you been bothered by any of the following problems? Question Answer Date of Assessment Author Little interest or pleasure in doing things Not at all 10/06/2024 7:55 AM EDT Sonya De Leon LPN Feeling down, depressed, or hopeless Not at all 10/06/2024 7:55 AM EDT Sonya De Leon LPN Patient Health Questionnaire-2 Score 0 10/06/2024 7:55 AM EDT Sonya De Leon LPN documented as of this encounter Plan of Treatment Upcoming Encounters Date Type Department Care Team (Late st Contact Info) Description 04/07/2025 10:45 AM EST Appointment [facility]iology [address] [place] [address] 04/07/2025 12:30 PM EST Office Visit [facility] [address] [place] [address] Anaid Thompson M, JORGE [address] [place] [address] documented as of this encounter Visit Diagnoses Not on filedocumented in this encounter Additional Health Concerns Assessment Noted Time PHQ-9 Depression Total Score: 0 05/05/19 25 8:27 AM EST A fall risk assessment has been complete d for the patient 05/05/2024 8:27 AM EST A Body Mass Index follow-up plan has been documented for the patient 05/05/2024 8:21 AM EST documented as of this encounter Care Teams Supervisor Drapery Hanging Relationship Specialty Start Date End Date Tristen Valenzuela MD [address] [facility] [address] [place] [address] PCP - General 10/24/23 Anaid Thompson APRN [address] [facility] [address] [place] [address] Nurse Practitioner Urology 03/03/24 documented as of this encounter
--- OUTSIDE RECORDS SUMMARY | 2024-12-15 10:28 | XMS_ITS | Patient Health Record ---
Author Organization [facility] Address [address] [place] [address] Care Team Providers Care Thermodynamic Physicist Name Role Phone Jocelyn Lemos Unavailable [phone] Allergies Allergen (clinical drug ingredient) Drug/Non Drug Allergy documented on EMR Reaction Allergy Type Onset Date Status CODEINE PHOSPHATE (CODEINE PHOSPHATE SOLN) Unspecified Drug Allergy 02/04/2010 Active PENICILLIN V POTASSIUM (PENICILLIN V POTASSIUM TAB Unspecified Drug Allergy 02/04/2010 Active sulfamethoxazole / trimethoprim SULFAMETHOXAZOLE-T RIMETHOPRIM Unspecified Drug Allergy 02/04/2010 Active Results Component Value Reference Range Notes Pap w/reflex HPV Reviewed date:03/20/2024 03:17:20 PM Interpretation:Normal Performing Lab:[facility] - [place] CLIA ID [id number], [address] [facility], [address], [place] [address], Director - Yunior Dorman MD Notes/Report: Any Nucleic Acid Amplification testing is performed on the [employer]. Diagnosis: Negative for intraepithelial lesion or malignancy. AP results FINAL TELECOMMUNICATION SYSTEMS DESIGNER CYTOLOGY REPORT DIAGNOSIS: Negative for intraepithelial lesion or malignancy. Specimen Adequacy: Satisfactory for interpretation with endocervical/transformat ion zone component present. Pertinent Clinical History/History of Surgery: none Collection Technique: [place] only Results of Last Pap: negative LMP: unknown Date of Last Pap: Not provided Specimen Source: Cervical/Endocervical Specimen Type: ThinPrep Other Gynecological Patient Information: Menopausal Recommendation: Follow-up based on current clinical guidelines and/or clinical consideration. Screening note: This specimen has been analyzed by the [employer] Imaging System, an interactive computer system which assists the lab in screening of ThinPrep Pap Test slides. Following imaging, the slide was reviewed by a Engine Room Operator and/or Pathologist. Negative Educational Note: The pap screening test aids in the detection of premalignant and malignant states of the cervix. False positive and negative results may occur. It is not a diagnostic test. If abnormal cells are reported, follow-up based on current clinical guidelines and/or clinical consideration is recommended. Sharron King Engine Room Operator CPT Codes: 61604 ICD Codes: Z01.419 MAMMO SCREENING DIGITAL NATHANIEL SYNTHESIS BILATERAL W CAD Reviewed date:09/17/2024 07:48:40 AM Interpretation:BIRAD 1 Negative, follow up in one year Performing Lab: Notes/Report: BILATERAL DIGITAL SCREENING MAMMOGRAM WITH TOMOSYNTHESIS CLINICAL INDICATION: Screening mammogram. TECHNIQUE: Bilateral low dose full field digital breast tomosynthesis imaging was performed. CAD was utilized. COMPARISON: Prior studies dating back to 06/05/2016 FINDINGS: There are scattered areas of fibroglandular density RIGHT BREAST: No suspicious masses, calcifications, or areas of distortion are seen. LEFT BREAST: No suspicious masses, calcifications, or areas of distortion are seen. No suspicious abnormality identified. OVERALL ASSESSMENT: ACR BI-RADS CATEGORY: 1, NEGATIVE: Recommend continued routine annual screening mammogram. The standard false-negative rate of mammography is between 10% and 25%. Complex patterns or increased breast density will markedly elevate the false-negative rate of mammography. A letter, in lay terminology, with the results of this exam will be mailed to the patient. 09/16/2024 6:37 PM by Luma Gonzales MD on Signed by: Luma Gonzales MD on 09/16/2024 6:37 PM +25 lbs Reason for Exam:->RT SCreening Reason For Referral No Information Medications Medication SIG (Take, Route, Frequency, Duration) Notes Start Date End Date Status hydrOXYzine Pamoate 25 MG Capsule Oral; Duration: 30 Days Acti ve Lisinopril-hydroCHLOROthiaz west 10-12.5 MG Tablet Oral; Duration: 90 Days Active Escitalopram Oxalate 20 MG Tablet Oral; Duration: 90 Days Acti ve Social History Sex Assigned At : Social History Observation Description Sex Assigned At Female Problems Problem Type SNOMED Code ICD Code Onset Dates Problem Status W/U Status Risk Notes Problem At high risk for breast cancer (883961313669618 ) At high risk for breast cancer (Z91.89) Active confirmed Problem Family history of malignant neoplasm of breast (356525126) Fam Hx malignant neoplasm - breast (Z80.3) 10/19/19 21 Active confirmed Breast Cancer Family History Problem Gynecological examination normal (637636378148845 ) Cervical smear, as part of routine gynecological examination (Z01.419) 07/02/19 19 Active confirmed Annual without abnormal findings Vital Signs Blood pressure diastolic 74 mm Hg 03/04/2024 Height 64 in 03/04/2024 Blood pressure systolic 118 mm Hg 03/04/2024 Weight 199.0 lbs 03/04/2024 BMI 34.15 kg/m2 03/04/2024 Encounters Encounter Location Date Provider Diagnosis [facility] [address] [facility] [address] [place] [address] 10/22/2024 Jocelyn Lemos [facility] [address] [place] [address] 03/04/2024 Jocelyn Lemos Clinical Data Management Manager exam without abnormal findings Z01.419 and Visit for screening mammogram Z12.31 Assessments Encounter Date Diagnosis (ICD Code) Assessment Notes Treatment Notes Treatment Clinical Notes Section Notes 03/04/2024 Clinical Data Management Manager exam without abnormal findings (ICD-10 - Z01.419) 03/04/2024 Visit for screening mammogram (ICD-10 - Z12.31) Plan Of Treatment No Information Insurance Providers Payer Name Payer Address Payer Phone Subscriber Number Group Number Insured Name Patient Relationship to Insured Coverage Start Date Coverage End Date [employer] [address] [place] [address] [phone] [id number] Clarisse Beebe Self - patient is the insured Medical (General) History Medical History History ICD Code Anxiety High Blood Pressure Irritable Fer wel Other Bicornate uterus Hypothyroid Kidney stones. Surgical History Surgery Date(Month/Year) Miduretherla sling, cystoscopy w/ Hyst D &C 11/22/17 [place] teeth Gallbladder removed left foot set ablation BTL lithotripsy x 3 eye surgery
--- OUTSIDE RECORDS SUMMARY | 2024-12-15 10:28 | XMS_ITS | Clinical Summary ---
Author Organization [facility] Address [address] [place] [address] Care Team Providers Care Area Attendant Name Role Phone Tristen Valenzuela MD Primary Care Provider [phone] Allergies Active Allergy Reactions Criticality Noted Date Comments Codeine Nausea And Vomiting Low 09/26/2017 Erythromycin Rash Low 02/28/2016 Penicillins Rash Low 02/28/2016 Sulfa Antibiotics Rash Low 02/28/2016 Medications escitalopram (LEXAPRO) 10 MG tablet Take 20 mg by mouth Daily. Active bisoprolol (ZEBeta) 10 MG tablet Take 10 mg by mouth Daily. Active lisinopril (PRINIVIL,ZESTRI L) 10 MG tablet Take 10 mg by mouth Daily. 04/20/2020 Active Active Problems Problem Noted Date Diagnosed Date Acquired hypothyroidism 06/15/2020 Assessment & Plan (08/13/2020 11:38 AM EDT): She is clinically improved without the medication.. we will check her levels and see if she really needs the medication Assessment & Plan (06/15/2020 10:24 AM EST): Has some symptoms that suggest she is on too much medication. Menorrhagia 11/22/2017 Urinary, incontinence, stress female 11/22/2017 Immunizations Immunization Administration Dates Next Due COVID-19 (PFIZER) Purple Cap Monovalent 06/24/19 21,06/02/2020 Family History Medical History Relation Name Comments Breast cancer Maternal Aunt 1 DX AGE RUSTY ENOPAUSAL Breast cancer Maternal Aunt 2 DX AGE 60'S Breast cancer Paternal Aunt DX AGE 40'S Breast cancer Sister NEGATIVE FOR B RCA Ovarian cancer Neg Hx Relation Name Status Comments Father Alive Maternal Aunt 1 Maternal Aunt 2 Mother Alive Paternal Aunt Sister Social History Tobacco Use Types Packs/Day Years Used Date Smoking Tobacco: Never Smokeless Tobacco: Never Alcohol Use Standard Drinks/Week Comments Yes 0 (1 standard drink = 0.6 oz pur e alcohol) rare, nothing weekly Comments No Sex and Gender Information Value Date Recorded Sex Assigned at Not on file Legal Sex Female 11:05 AM EDT Gender Identity Not on file Sexual Orientation Not on file Last Filed Vital Signs Vital Sign Reading Time Taken Comments Blood Pressure 122/75 11/12/2020 4:00 PM EDT Pulse 57 11/12/2020 4:00 PM EDT Temperature 35.9 C (96.7 F) 11/12/2020 2:21 PM EDT Respiratory Rate 16 11/12/2020 4:00 PM EDT Oxygen Saturation 98% 11/12/2020 4:00 PM EDT Inhaled Oxygen Concentration - - Weight 86.6 kg (191 lb) 11/12/2020 10:29 AM EDT Height 160 cm (5' 3 ) 11/12/2020 10:29 AM EDT Body Mass Index 33.83 11/12/2020 10:29 AM EDT Plan of Treatment Health Maintenance Due Date Last Done Comments Annual Gynecologic Pelvic an d Breast Exam 1965 COLOGUARD 10/14/2011 COLON CANCER SCREENING 5 YEA R SIGMOIDOSCOPY 10/14/2011 COLONOSCOPY 10/14/2011 COLORECTAL CANCER SCREENING 10/14/2011 CT COLONOGRAPHY 10/14/2011 FECAL OCCULT BLOOD TEST 10/14/2011 FIT Testing (1 year) 10/14/2011 Pneumococcal Vaccine 50+ (1 of 1 - PCV) 2016 ZOSTER VACCINE (1 of 2) 2016 ANNUAL PHYSICAL 03/15/2017 HEPATITIS C SCREENING 03/15/2017 INFLUENZA VACCINE 01/07/2025 01/25/2024, , 12/09/2019, Additional history exists MAMMOGRAM 09/12/2026 09/12/2024, 08/08, 08/24/2023, Additional history exists TDAP/TD VACCINES (2 - Td or Tdap) 09/27/2033 024 COVID-19 Vaccine Completed 02/14/2024, , 05/19/2022, Additional history exists Medical Devices Implanted Type Area Head Machinist Device Identifier Shelf Expiration Date Model / Serial / Lot Slng Mid Ureth Solyx Sis Sys - [id number] Implanted:Qty : 1 on 11/22/2017 by Jocelyn Lemos MD at [facility] Implant N/A: Urethra [employer] 08/22/2020 [id number] / / [id number] Stnt Percuflx No Gw 6x24 - [id number] Implanted:Qty : 1 on 11/12/2020 by Eris Godoy MD at [facility] Stent Right: Ureter [employer] 08/24/2023 [id number] / / [id number] Stnt Percuflx No Gw 6x24 - [id number] Implanted:Qty : 1 on 11/12/2020 by Ersi Godoy MD at [facility] Stent Left: Ureter [employer] 08/27/2023 [id number] / / [id number] Procedures Procedure Name Priority Date/Time Associated Diagnosis Comments MAMMO SCREENING DIGITAL TOMOSYNTHESIS BILATERAL W CAD Routine 09/12/2024 1:52 PM EDT Visit for screening mammogram from Last 3 Months or Most Recently Relevant to Health Maintenance Results * Mammo Screening Digital Tomosynthesis Bilateral With CAD (09/12/2024 1:52 PM EDT) Anatomical Region Laterality Modality Breast N/A Mammography 09/16/2024 6:35 PM EDT Impressions 09/16/2024 6:37 PM EDT No suspicious abnormality identified. OVERALL ASSESSMENT: ACR [...] 6:37 PM by Luma Gonzales MD on Narrative 09/16/2024 6:37 PM EDT BILATERAL DIGITAL SCREENING MAMMOGRAM WITH TOMOSYNTHESIS CLINICAL [...] calcifications, or areas of distortion are seen. us Jocelyn Lemos MD IMG MAMMOGRAPHY ORDERABLES F inal Result from Last 3 Months or Most Recently Relevant to Health Maintenance Insurance [employer] Care Teams Area Attendant Relationship Specialty Start Date End Date Tristen Valenzuela MD [facility] [address] [place] [id number] PCP - General Internal Medicine 05/01/22
[2024-12-15 11:44] LABS: Thyroid Stimulating Hormone 2.23 uIU/mL (0.465-4.68)
--- NOTE | 2024-12-15 12:03 | XR_ITS ---
FINAL REPORT CLINICAL HISTORY: Left shoulder pain FINDINGS: 2 views of the left shoulder were obtained. There is no fracture or dislocation. The joint space is preserved. Soft tissues are unremarkable. IMPRESSION: No acute osseous abnormality of the left shoulder. Reviewed, Interpreted and Dictated by Estelle Fortune MD Transcribed by Salina Mishra Authenticated and [facility]
--- NOTE | 2024-12-15 12:03 | XR_ITS ---
FINAL REPORT CLINICAL HISTORY: Lumbago with left sciatica FINDINGS: AP, lateral, and oblique views of the lumbar spine were obtained. There is no acute fracture or acute malalignment. Vertebral body height is preserved. There is mild degenerative disc disease at L5-S1.. No acute paraspinal abnormality is identified. IMPRESSION: No acute osseous abnormalities lumbar spine. Reviewed, Interpreted and Dictated by Estelle Fortune MD Transcribed by Salina Mishra Authenticated and [facility]
== END 2024-12-15 23:59 | disposition home or self-care (01) ==
PROVIDERS: PCP Internal Medicine; Visit Provider Internal Medicine
DX: M25.512 Pain in left shoulder (principal); M54.42 Lumbago with sciatica, left side; E03.9 Hypothyroidism, unspecified
CPT/HCPCS: 36415; 72110; 73030; 84443

== ENCOUNTER 2025-03-18 10:37 | Outpatient (CLI) | payer BC, SELFPAY | END 2025-03-18 23:59 | disposition home or self-care (01) | LOC: LAB 10:38 | PROVIDERS: PCP Internal Medicine | DX: E03.9 Hypothyroidism, unspecified (principal); F33.9 Major depressive disorder, recurrent, unspecified | CPT/HCPCS: 36415; 86376 ==